=== PATIENT | female | born 1950 | race Caucasian/White ===

== ENCOUNTER 2017-06-20 07:22 | Inpatient (IN) | payer MEDICARE ==
[2017-06-20] MEDS ORDERED: Iodixanol 320 mg/ml 150 ml Bottle IV ONE (08:14)
[2017-06-20 08:44] LABS: RBC URINE 1 /hpf (0-3); URINE BILIRUBIN NEGATIVE (NEGATIVE); URINE BLOOD NEGATIVE (NEGATIVE); URINE COLOR Yellow (YELLOW); URINE GLUCOSE (UA) NORMAL (Normal); URINE KETONE TRACE mg/dL (NEGATIVE); URINE LEUKOCYTE ESTERASE TRACE Leu/uL (Negative); URINE PROTEIN NEGATIVE (NEGATIVE); WBC URINE 1 /hpf (0-5)
--- NOTE | 2017-06-20 08:54 | C.PDOC ---
History Of Present Illness 67 yo female c/o LLQ since last night associated with nausea and diarrhea. Pt was signed over to me at 7am pending CT resutls. Pt re-registered from MR # [id number]. Time Seen by Provider: 06/20/17 07:48 Chief Complaint (Nursing): Abdominal Pain History Per: Patient Onset/Duration Of Symptoms: Hrs Current Symptoms Are (Timing): Still Present Location Of Pain/Discomfort: LLQ Past Medical History Vital Signs: Last Vital Signs Temp 97.6 F 06/20/17 11:52 Pulse 84 06/20/17 11:52 Resp 20 06/20/17 11:52 BP 94/55 L 06/20/17 11:52 Pulse Ox 95 06/20/17 11:52 - Medical History PMH: Bronchitis Family History: States: Unknown Family Hx - Social History Hx Alcohol Use: No Hx Substance Use: No - Immunization History Hx Tetanus Toxoid Vaccination: No Hx Influenza Vaccination: Yes Hx Pneumococcal Vaccination: No Review Of Systems Except As Marked, All Systems Reviewed And Found Negative. Gastrointestinal: Positive for: Nausea, Vomiting, Abdominal Pain, Diarrhea Physical Exam - Physical Exam Appears: Well, Non-toxic, No Acute Distress Skin: Normal Color, Warm, Dry Head: Atraumatic, Normacephalic Eye(s): bilateral: Normal Inspection, EOMI Nose: Normal Oral Mucosa: Moist Neck: Normal, Normal ROM, Supple Chest: Symmetrical Cardiovascular: Rhythm Regular Respiratory: Normal Breath Sounds, No Accessory Muscle Use Gastrointestinal/Abdominal: Soft, Tenderness (LLQ) Back: Normal Inspection, No CVA Tenderness, No Vertebral Tenderness Extremity: Normal ROM ED Course And Treatment - Laboratory Results Result Diagrams: 06/20/17 11:45 O2 Sat by Pulse Oximetry: 99 Progress Note: On re-eevaluation, pt notes some improvement of pain. Toradol IVP ordered. WBC 22. Neut 87. CT results evalauted. Blood culture drawn - under previous chart. Flagyl /Cipro ordered. Case discussed with Dr Darden, agreed upon treatment and admission. Case discussed with Dr Urrutia, agreed upon admission. Disposition - Disposition Disposition: HOSPITALIZED Disposition Time: 10:14 Condition: STABLE - Clinical Impression Clinical Impression: Diverticulitis
--- NOTE | 2017-06-20 09:27 | CT ---
PROCEDURE: CT Abdomen and Pelvis with contrast HISTORY: Abdominal pain and diarrhea COMPARISON: None. TECHNIQUE: CT scan of the abdomen and pelvis was performed after intravenous administration of contrast. Oral contrast was not administered. Coronal and sagittal reformatted images were obtained. Contrast dose: 100 mL Visipaque Radiation dose: Total exam DLP = 256.33 mGy-cm. This CT exam was performed using one or more of the following dose reduction techniques: Automated exposure control, adjustment of the mA and/or kV according to patient size, and/or use of iterative reconstruction technique. FINDINGS: LOWER THORAX: The lung bases are clear. LIVER: The liver is normal in size and there is diffuse fatty infiltration. No gross lesion or ductal dilatation. GALLBLADDER AND BILE DUCTS: There are no calcified gallstones. PANCREAS: Normal in size with homogeneous enhancement. No gross lesion or ductal dilatation. SPLEEN: Normal in size and appearance. ADRENALS: No discrete nodule. KIDNEYS AND URETERS: Normal in size and there is homogeneous enhancement. No hydronephrosis. No solid mass. VASCULATURE: There are atherosclerotic aortoiliac calcifications and focal ectasia of the infrarenal aorta are with posterior lateral thrombus. No aortic aneurysm. BOWEL: The small bowel loops are normal in caliber. There is colonic diverticulosis, extensive in the left hemicolon. There is segmental moderate mural thickening of the distal descending and sigmoid colon with significant pericolonic inflammatory changes. No microperforation. APPENDIX: No inflammatory changes in the right lower quadrant. PERITONEUM: No free fluid. No free air. LYMPH NODES: No enlarged lymph nodes. BLADDER: Partially decompressed. REPRODUCTIVE: The uterus is normal in size. BONES: No acute fracture. Within normal limits for the patient's age. OTHER FINDINGS: None. IMPRESSION: 1. Findings are consistent with acute diverticulitis involving the long segment distal descending and sigmoid colon without micro perforation or abscess. 2. Fatty liver.
[2017-06-20] MEDS ORDERED: Ciprofloxacin 400mg/200ml D5W 400 MG/200 ML BAG IV STA (09:35)
[2017-06-20] MEDS ORDERED: Ciprofloxacin 400mg/200ml D5W 400 MG/200 ML BAG IVPB ONE (09:41)
[2017-06-20] MEDS ORDERED: metroNIDAZOLE IV 500 mg/100 ml 500 MG/100 ML BAG IV STA (09:44)
[2017-06-20] MEDS ORDERED: Dextrose 5%/0.9% NS 1,000 ML IV ONE (10:30)
[2017-06-20] MEDS ORDERED: Ciprofloxacin 400mg/200ml D5W 400 MG/200 ML BAG IVPB SCH ×3 (11:00→15:00)
--- NOTE | 2017-06-20 11:03 | RAD ---
PROCEDURE: CHEST RADIOGRAPH, 1 VIEW HISTORY: sepsis COMPARISON: None available. FINDINGS: LUNGS: The lungs are hyperinflated and there is peribronchial thickening with chronic changes in both lungs. No focal consolidation. PLEURA: No pneumothorax or pleural fluid seen. CARDIOVASCULAR: Normal. OSSEOUS STRUCTURES: No significant abnormalities. VISUALIZED UPPER ABDOMEN: Normal. OTHER FINDINGS: None. IMPRESSION: No active pulmonary disease. COPD.
[2017-06-20 12:08] LABS: CHLORIDE 103 mmol/L (98-107)
[2017-06-20 12:09] LABS: POTASSIUM 3.1 mmol/L (3.6-5.2); SODIUM 131 mmol/L (132-148)
[2017-06-20 12:11] LABS: ALB/GLOB RATIO 1.3 (1.0-2.1); AMYLASE 52 U/L (30-110); AST/SGOT 27 U/L (14-36); BILIRUBIN,DIRECT 0.7 mg/dL (0.0-0.4); BLOOD UREA NITROGEN 12 mg/dL (7-17); CARBON DIOXIDE 19 mmol/L (22-30); GFR AFRICAN-AMERICAN > 60; TOTAL PROTEIN 5.4 g/dL (6.3-8.3)
[2017-06-20 12:12] LABS: ALKALINE PHOSPHATASE 43 U/L (38-126); ALT/SGPT 38 U/L (9-52); CALCIUM 7.2 mg/dl (8.6-10.4); GLUCOSE,RANDOM 120 mg/dL (65-105)
[2017-06-20 14:15] LABS: BASO # 0.1 K/uL (0.0-0.2); BASO % 0.2 % (0.0-2.0); EOS % 0.2 % (0.0-4.0); HEMATOCRIT 42.1 % (34.0-47.0); LYMPH # 1.8 K/uL (1.0-4.3); LYMPH % 8.1 % (20.0-40.0); MEAN CELL VOLUME 90.9 fL (81.0-99.0); MEAN CORPUSCULAR HEMOGLOBIN 31.1 pg (27.0-31.0); MEAN CORPUSCULAR HGB CONC 34.2 g/dL (33.0-37.0); MEAN PLATELET VOLUME 10.1 fL (7.2-11.7); MONO # 1.2 K/uL (0.0-0.8); MONO % 5.2 % (0.0-10.0); PLATELET COUNT 277 K/uL (130-400); RED CELL DISTRIBUTION WIDTH 13.9 % (11.5-14.5)
[2017-06-20 14:18] LABS: WHITE BLOOD COUNT 22.6 K/uL (4.8-10.8)
[2017-06-20 14:25] LABS: INR 1.2
[2017-06-20 14:38] LABS: EOSINOPHIL 1 % (0-4); LARGE PLATELETS PRESENT; NEUTROPHIL 81 % (50-75); TOTAL CELLS COUNTED 100
[2017-06-20] MEDS: Enoxaparin 40 mg Syringe SC SCH (14:46)
[2017-06-20] MEDS: metroNIDAZOLE IV 500 mg/100 ml 500 MG/100 ML BAG IVPB SCH ×2 (14:48→21:18)
[2017-06-20] MEDS: Piperacill/Tazo 3.375gm in Dex 3.375 GM/50 ML BAG IVPB SCH (15:35)
[2017-06-20] MEDS: Albuterol-Ipratrop 3 mg / 0.5 (3 ml) UD INH SCH ×2 (15:40→19:56)
[2017-06-20 16:01] VITALS: RESP 20
[2017-06-20] MEDS: HYDROmorphone 1 mg/ml ISec IVP PRN (17:12)
[2017-06-20 17:13] LABS: MAGNESIUM 1.5 mg/dL (1.6-2.3); PHOSPHOROUS 2.8 mg/dL (2.5-4.5)
--- NOTE | 2017-06-20 19:37 | CP.PCM.HP ---
History of Present Illness - History of Present Illness History of Present Illness: Patient 67 y/o with hx of severe COPD still a smoker. She presented in ER with severe LLQ abd pain, nausea, vomiting. A CT scan of abd reveled a diverticulitis with no abscess or perforation. The patient id not able to tolerate any PO intake and still c/o severe pain. Stated in IV antibx, IV fluid , IV opioid , NPO. Will follow clinically until the patient cannot tolerate PO intake will admit on present rx. F/U with ID and GI. Will close monitor the respiratory condition. Present on Admission - Present on Admission Any Indicators Present on Admission: No Review of Systems - Constitutional Constitutional: As Per HPI - EENT Eyes: As Per HPI - Cardiovascular Cardiovascular: As Per HPI - Respiratory Respiratory: As Per HPI - Gastrointestinal Gastrointestinal: As Per HPI - Neurological Neurological: As Per HPI - Psychiatric Psychiatric: As Per HPI Past Patient History - Infectious Disease Hx of Infectious Diseases: None - Past Medical History & Family History Past Medical History?: Yes - Past Social History Smoking Status: Light Smoker < 10 Cigarettes Daily - CARDIAC Hx Cardiac Disorders: No - PULMONARY Hx Bronchitis: Yes - NEUROLOGICAL Hx Neurological Disorder: No - HEENT Hx HEENT Problems: No - RENAL Hx Chronic Kidney Disease: No - ENDOCRINE/METABOLIC Hx Endocrine Disorders: No - HEMATOLOGICAL/ONCOLOGICAL Hx Blood Disorders: No - INTEGUMENTARY Hx Dermatological Problems: No - MUSCULOSKELETAL/RHEUMATOLOGICAL Hx Musculoskeletal Disorders: No Hx Falls: No - GASTROINTESTINAL Hx Diverticulitis: Yes - GENITOURINARY/GYNECOLOGICAL Hx Genitourinary Disorders: No - PSYCHIATRIC Hx Substance Use: No - SURGICAL HISTORY Hx Surgeries: Yes Hx Section: Yes - ANESTHESIA Hx Anesthesia: Yes Hx Anesthesia Reactions: No Hx Malignant Hyperthermia: No Has any member of the family had a problem w/ anesthesia?: No Meds Allergies/Adverse Reactions: Allergies Allergy/AdvReac Type Severity Reaction Status Date / Time No Known Allergies Allergy Verified 06/20/17 07:51 Physical Exam - Constitutional Appears: In Acute Distress - Head Exam Head Exam: ATRAUMATIC, NORMAL INSPECTION, NORMOCEPHALIC - Eye Exam Eye Exam: Normal appearance - ENT Exam ENT Exam: Mucous Membranes Moist - Neck Exam Neck exam: Positive for: Normal Inspection - Respiratory Exam Respiratory Exam: Decreased Breath Sounds - Cardiovascular Exam Cardiovascular Exam: REGULAR RHYTHM, +S2 - GI/Abdominal Exam GI & Abdominal Exam: Tenderness Additional comments: Severe tenderness in the LLQ with mild rebound - Neurological Exam Neurological exam: Alert, CN II-XII Intact, Oriented x3 - Psychiatric Exam Psychiatric exam: Anxious Results - Vital Signs Recent Vital Signs: Last Vital Signs Temp 100.3 F H 06/20/17 16:20 Pulse 80 06/20/17 15:58 Resp 20 06/20/17 15:58 BP 104/53 L 06/20/17 15:58 Pulse Ox 94 L 06/20/17 15:58 - Labs Result Diagrams: 06/20/17 14:06 06/20/17 11:45 Labs: Laboratory Results - last 24 hr 06/20/17 06/20/17 06/20/17 08:14 11:45 11:45 WBC RBC Hgb Hct MCV MCH MCHC RDW Plt Count MPV Neut % (Auto) Lymph % (Auto) [place] % (Auto) Eos % (Auto) Baso % (Auto) Neut # Lymph # [place] # Eos # Baso # Neutrophils % (Manual) Band Neutrophils % Lymphocytes % (Manual) Monocytes % (Manual) Eosinophils % (Manual) Platelet Estimate Large Platelets RBC Morphology PT INR APTT Sodium 131 L Potassium 3.1 L Chloride 103 Carbon Dioxide 19 L Anion Gap 12 BUN 12 Creatinine 0.8 Est GFR ( Amer) > 60 Est GFR (Non-Af Amer) > 60 Random Glucose 120 H Calcium 7.2 L Phosphorus 2.8 Magnesium 1.5 L Total Bilirubin 1.0 Direct Bilirubin 0.7 H AST 27 ALT 38 Alkaline Phosphatase 43 Total Protein 5.4 L Albumin 3.0 L Globulin 2.4 Albumin/Globulin Ratio 1.3 Amylase 52 Lipase 28 Urine Color Yellow Urine Clarity Clear Urine pH 6.0 Ur Specific [place] 1.024 Urine Protein Negative Urine Glucose (UA) Normal Urine Ketones Trace Urine Blood Negative Urine Nitrate Negative Urine Bilirubin Negative Urine Urobilinogen 4.0 H Ur Leukocyte Esterase Trace Urine WBC (Auto) 1 Urine RBC (Auto) 1 Ur Squamous Epith Cells 4 06/20/17 06/20/17 14:06 14:06 WBC 22.6 H RBC 4.63 Hgb 14.4 Hct 42.1 MCV 90.9 MCH 31.1 H MCHC 34.2 RDW 13.9 Plt Count 277 MPV 10.1 Neut % (Auto) 86.3 H Lymph % (Auto) 8.1 L [place] % (Auto) 5.2 Eos % (Auto) 0.2 Baso % (Auto) 0.2 Neut # 19.5 H Lymph # 1.8 [place] # 1.2 H Eos # 0.0 Baso # 0.1 Neutrophils % (Manual) 81 H Band Neutrophils % 1 Lymphocytes % (Manual) 12 L Monocytes % (Manual) 5 Eosinophils % (Manual) 1 Platelet Estimate Normal Large Platelets Present RBC Morphology Normal PT 13.4 H INR 1.2 APTT 35 H Sodium Potassium Chloride Carbon Dioxide Anion Gap BUN Creatinine Est GFR ( Amer) Est GFR (Non-Af Amer) Random Glucose Calcium Phosphorus Magnesium Total Bilirubin Direct Bilirubin AST ALT Alkaline Phosphatase Total Protein Albumin Globulin Albumin/Globulin Ratio Amylase Lipase Urine Color Urine Clarity Urine pH Ur Specific [place] Urine Protein Urine Glucose (UA) Urine Ketones Urine Blood Urine Nitrate Urine Bilirubin Urine Urobilinogen Ur Leukocyte Esterase Urine WBC (Auto) Urine RBC (Auto) Ur Squamous Epith Cells Assessment & Plan (1) Abdominal pain Status: Acute (2) COPD (chronic obstructive pulmonary disease) Status: Chronic (3) Leukocytosis Status: Acute (4) Diverticulitis Status: Acute - Assessment and Plan (Free Text) Plan: per orders
[2017-06-21] MEDS: Piperacill/Tazo 3.375gm in Dex 3.375 GM/50 ML BAG IVPB SCH ×3 (00:12→16:00)
[2017-06-21] MEDS: Albuterol-Ipratrop 3 mg / 0.5 (3 ml) UD INH SCH ×4 (02:52→19:44)
[2017-06-21] MEDS: HYDROmorphone 1 mg/ml ISec IVP PRN ×2 (03:53→12:08)
[2017-06-21] MEDS: metroNIDAZOLE IV 500 mg/100 ml 500 MG/100 ML BAG IVPB SCH ×3 (05:08→21:56)
[2017-06-21 08:09] LABS: EOS # 0.1 K/uL (0.0-0.7); MEAN CORPUSCULAR HEMOGLOBIN 30.6 pg (27.0-31.0); MEAN CORPUSCULAR HGB CONC 33.4 g/dL (33.0-37.0); MONO # 1.1 K/uL (0.0-0.8)
[2017-06-21 08:16] LABS: BASO % 0.2 % (0.0-2.0); EOS % 0.6 % (0.0-4.0); HEMATOCRIT 36.3 % (34.0-47.0); LYMPH # 1.9 K/uL (1.0-4.3); LYMPH % 9.3 % (20.0-40.0); MEAN CELL VOLUME 91.9 fL (81.0-99.0); MEAN PLATELET VOLUME 10.2 fL (7.2-11.7); MONO % 5.2 % (0.0-10.0); PLATELET COUNT 246 K/uL (130-400); WHITE BLOOD COUNT 20.5 K/uL (4.8-10.8)
[2017-06-21 08:19] LABS: CHLORIDE 104 mmol/L (98-107)
[2017-06-21 08:20] LABS: POTASSIUM 3.6 mmol/L (3.6-5.2); SODIUM 132 mmol/L (132-148)
[2017-06-21 08:22] LABS: ALB/GLOB RATIO 1.3 (1.0-2.1); ALKALINE PHOSPHATASE 57 U/L (38-126); ALT/SGPT 41 U/L (9-52); AST/SGOT 21 U/L (14-36); BLOOD UREA NITROGEN 11 mg/dL (7-17); CALCIUM 7.9 mg/dl (8.6-10.4); CARBON DIOXIDE 21 mmol/L (22-30); GFR AFRICAN-AMERICAN > 60; GLUCOSE,RANDOM 96 mg/dL (65-105); TOTAL PROTEIN 5.5 g/dL (6.3-8.3)
[2017-06-21] MEDS: Fluticasone-Salmeterol 250-50mcg Diskus INH SCH ×2 (08:42→19:45)
[2017-06-21 08:57] LABS: NEUTROPHIL 84 % (50-75); TOTAL CELLS COUNTED 100
[2017-06-21 08:58] LABS: GIANT PLATELETS PRESENT; LARGE PLATELETS PRESENT
[2017-06-21 09:22] LABS: ERYTHROCYTE SEDIMENTATION RATE 40 mm/hr (0-20)
--- NOTE | 2017-06-21 09:53 | RAD ---
PROCEDURE: Radiographs of the Chest and Left Ribs. HISTORY: pain COMPARISON: None available. TECHNIQUE: Frontal radiograph of the chest and multiple oblique radiographs of the left ribs were obtained. FINDINGS: LEFT RIBS: No fracture or focal lesion visualized. LUNGS: Clear. PLEURA: No pneumothorax or pleural fluid. CARDIOVASCULAR: Normal sized heart. No pulmonary vascular congestion. OTHER FINDINGS: None. IMPRESSION: Unremarkable radiographs of the chest and left ribs. No left rib fracture.
[2017-06-21] MEDS: Enoxaparin 40 mg Syringe SC SCH (10:01)
[2017-06-21 11:04] LABS: HEMATOCRIT 44.1 % (34.0-47.0)
[2017-06-21 11:05] LABS: EOS % 0.1 % (0.0-4.0); LYMPH % 8.9 % (20.0-40.0); MEAN CORPUSCULAR HEMOGLOBIN 30.6 pg (27.0-31.0); MEAN PLATELET VOLUME 10.1 fL (7.2-11.7); MONO % 5.8 % (0.0-10.0); PLATELET COUNT 308 K/uL (130-400); RED CELL DISTRIBUTION WIDTH 13.6 % (11.5-14.5)
[2017-06-21 11:06] LABS: BASO # 0.1 K/uL (0.0-0.2); BASO % 0.5 % (0.0-2.0); MONO # 1.3 K/uL (0.0-0.8); NRBC % 0.1 % (0.0-2.0)
[2017-06-21 11:08] LABS: NEUTROPHIL 85 % (50-75)
[2017-06-21 11:12] LABS: BLOOD UREA NITROGEN 14 mg/dL (7-17); CALCIUM 8.9 mg/dl (8.6-10.4); CARBON DIOXIDE 22 mmol/L (22-30); CHLORIDE 101 mmol/L (98-107); GFR AFRICAN-AMERICAN > 60; POTASSIUM 3.8 mmol/L (3.6-5.2); SODIUM 136 mmol/L (132-148)
[2017-06-21 11:13] LABS: ALB/GLOB RATIO 1.1 (1.0-2.1); ALKALINE PHOSPHATASE 76 U/L (38-126); ALT/SGPT 51 U/L (9-52); AST/SGOT 33 U/L (14-36); BILIRUBIN,TOTAL 0.6 mg/dL (0.2-1.3); TOTAL PROTEIN 8.5 g/dL (6.3-8.3)
[2017-06-21 11:15] LABS: TOTAL CELLS COUNTED 100
[2017-06-21 11:30] LABS: GLUCOSE,RANDOM 99 mg/dL (65-105)
[2017-06-21] MEDS ORDERED: MethylPREDNISolone 40 mg Vial IVP STA (13:18)
--- NOTE | 2017-06-21 14:21 | RAD ---
PROCEDURE: CHEST RADIOGRAPH, 1 VIEW HISTORY: COPD COMPARISON: 06/21/2017 FINDINGS: LUNGS: Mild venous congestion. Biapical pleural thickening with upper lobe granulomatous changes. Right hilar prominence. PLEURA: No pneumothorax or pleural fluid seen. CARDIOVASCULAR: Calcification at the aortic knob. OSSEOUS STRUCTURES: No significant abnormalities. VISUALIZED UPPER ABDOMEN: Normal. OTHER FINDINGS: None. IMPRESSION: Mild venous congestion. Biapical pleural thickening with upper lobe granulomatous changes. Right hilar prominence.
--- NOTE | 2017-06-21 15:41 | CP.PCM.CON ---
History of Present Illness - History of Present Illness History of Present Illness: CC: Abdominal pain HPI: 67 year old woman presented to the ER for evaluation of LLQ pain present x 2 weeks, associated with softer BMs. CT showed inflamatory changes with diverticula in the left colon and patient was admitted with diagnosis of diverticulitis and begun on Zosyn and Flagyl. Patient notes some improvement in abdominal pain today, but feels sad and depresses due to "too many problems at bthe same time" and sad that she has never in her life been hospitalized. She denies recent antibiotic use. Patient states she has chronic intermittent generalized pruritis and rash for which she uses Bendaryl PRN/ Also has cough, and is a current cigarette smoker. Patient has never had a Colonoscopy. Review of Systems - Constitutional Constitutional: Anorexia, Chills, Fever, Weakness - EENT Eyes: absent: Change in Vision Ears: absent: Dizziness Nose/Mouth/Throat: absent: Sore Throat - Cardiovascular Cardiovascular: absent: Chest Pain - Respiratory Respiratory: Cough. absent: Dyspnea - Gastrointestinal Gastrointestinal: Abdominal Pain, Change in Stool Character, Loose Stools, Nausea. absent: Constipation, Hematochezia, Melena - Genitourinary Genitourinary: absent: Dysuria - Musculoskeletal Musculoskeletal: absent: Back Pain - Integumentary Integumentary: Pruritus, Rash - Neurological Neurological: absent: Abnormal Gait - Psychiatric Psychiatric: Anxiety, Depression - Hematologic/Lymphatic Hematologic: absent: Easy Bleeding Past Patient History - Infectious Disease Hx of Infectious Diseases: None - Past Medical History & Family History Past Medical History?: Yes - Past Social History Smoking Status: Light Smoker < 10 Cigarettes Daily Alcohol: None - CARDIAC Hx Cardiac Disorders: No - PULMONARY Hx Bronchitis: Yes - NEUROLOGICAL Hx Neurological Disorder: No - HEENT Hx HEENT Problems: No - RENAL Hx Chronic Kidney Disease: No - ENDOCRINE/METABOLIC Hx Endocrine Disorders: No - HEMATOLOGICAL/ONCOLOGICAL Hx Blood Disorders: No - INTEGUMENTARY Hx Dermatological Problems: No - MUSCULOSKELETAL/RHEUMATOLOGICAL Hx Musculoskeletal Disorders: No Hx Falls: No - GASTROINTESTINAL Hx Diverticulitis: Yes - GENITOURINARY/GYNECOLOGICAL Hx Genitourinary Disorders: No - PSYCHIATRIC Hx Substance Use: No - SURGICAL HISTORY Hx Surgeries: Yes Hx Section: Yes - ANESTHESIA Hx Anesthesia: Yes Hx Anesthesia Reactions: No Hx Malignant Hyperthermia: No Has any member of the family had a problem w/ anesthesia?: No Meds Allergies/Adverse Reactions: Allergies Allergy/AdvReac Type Severity Reaction Status Date / Time No Known Allergies Allergy Unverified 06/20/17 06:02 - Medications Medications: Current Medications Acetaminophen (Tylenol 325 Mg Supp) 325 mg [place] Q6 PRN PRN Reason: Pain, moderate (4-7) Last Admin: 06/20/17 16:20 Dose: 325 mg Albuterol/Ipratropium (Duoneb 3 Mg/0.5 Mg (3 Ml) Ud) 3 ml INH RQ6 [facility] Last Admin: 06/21/17 13:34 Dose: 3 ml Enoxaparin Sodium (Lovenox) 40 mg SC DAILY [facility] Last Admin: 06/21/17 10:01 Dose: 40 mg Famotidine (Pepcid) 20 mg IVP Q12H [facility] Last Admin: 06/21/17 12:08 Dose: 20 mg Hydromorphone HCl (Dilaudid) 1 mg IVP Q8 PRN PRN Reason: Pain, severe (8-10) Last Admin: 06/21/17 12:08 Dose: 1 mg Metronidazole (Flagyl) 500 mg in 100 mls @ 100 mls/hr IVPB Q8 [facility] Last Admin: 06/21/17 14:45 Dose: 100 mls/hr Piperacillin Sod/Tazobactam Sod (Zosyn 3.375 Gm Iv Premix) 3.375 gm in 50 mls @ 100 mls/hr IVPB Q8H [facility] Last Admin: 06/21/17 07:53 Dose: 100 mls/hr Nicotine (Nicoderm Cq) 1 patch TD DAILY [facility] Last Admin: 06/21/17 10:09 Dose: 1 patch Pneumococcal Polyvalent Vaccine (Pneumovax 23 Vaccine) 0.5 ml IM .ONCE ONE Stop: 06/22/17 10:01 Fluticasone/Salmeterol (Advair Diskus 250/50) 1 puff INH RQ12 [facility] Last Admin: 06/21/17 08:42 Dose: 1 puff Physical Exam - Constitutional Appears: Well, No Acute Distress - Head Exam Head Exam: ATRAUMATIC, NORMOCEPHALIC - Eye Exam Eye Exam: EOMI, Normal appearance. absent: Scleral icterus - ENT Exam ENT Exam: Normal Exam - Neck Exam Neck exam: Positive for: Normal Inspection. Negative for: Thyromegaly - Respiratory Exam Respiratory Exam: Wheezes - Cardiovascular Exam Cardiovascular Exam: REGULAR RHYTHM - GI/Abdominal Exam GI & Abdominal Exam: Soft, Tenderness. absent: Distended (Mild LLQ tenderness. Longitudinal pelvic surgical scar), Guarding, Mass, Organomegaly, Rebound - Rectal Exam Rectal Exam: Deferred - Extremities Exam Extremities exam: Positive for: normal inspection - Back Exam Back exam: NORMAL INSPECTION - Neurological Exam Neurological exam: Alert, Oriented x3 - Psychiatric Exam Psychiatric exam: Depressed Results - Vital Signs Recent Vital Signs: Last Vital Signs Temp 98.5 F 06/21/17 07:46 Pulse 69 06/21/17 07:46 Resp 20 06/21/17 07:46 BP 98/61 L 06/21/17 07:46 Pulse Ox 97 06/21/17 07:46 - Labs Result Diagrams: 06/21/17 07:50 06/21/17 07:50 Labs: Laboratory Results - last 24 hr 06/20/17 06/20/17 06/20/17 06:07 06:07 11:45 WBC 22.0 H RBC 4.90 Hgb 15.0 Hct 44.1 MCV 90.0 MCH 30.6 MCHC 34.0 RDW 13.6 Plt Count 308 MPV 10.1 Neut % (Auto) 84.7 H Lymph % (Auto) 8.9 L [place] % (Auto) 5.8 Eos % (Auto) 0.1 Baso % (Auto) 0.5 Neut # 18.6 H Lymph # 2.0 [place] # 1.3 H Eos # 0.0 Baso # 0.1 Neutrophils % (Manual) 85 H Band Neutrophils % Lymphocytes % (Manual) 10 L Monocytes % (Manual) 5 Platelet Estimate Normal Large Platelets Giant Platelets RBC Morphology Normal Poikilocytosis (manual Anisocytosis (manual) ESR Sodium 136 Potassium 3.8 Chloride 101 Carbon Dioxide 22 Anion Gap 17 BUN 14 Creatinine 1.0 Est GFR ( Amer) > 60 Est GFR (Non-Af Amer) 55 Random Glucose 99 Calcium 8.9 Phosphorus 2.8 Magnesium 1.5 L Total Bilirubin 0.6 AST 33 ALT 51 Alkaline Phosphatase 76 Total Protein 8.5 H Albumin 4.4 Globulin 4.1 H Albumin/Globulin Ratio 1.1 Lipase 64 06/21/17 06/21/17 07:50 07:50 WBC 20.5 H RBC 3.95 Hgb 12.1 D Hct 36.3 MCV 91.9 MCH 30.6 MCHC 33.4 RDW 14.0 Plt Count 246 MPV 10.2 Neut % (Auto) 84.7 H Lymph % (Auto) 9.3 L [place] % (Auto) 5.2 Eos % (Auto) 0.6 Baso % (Auto) 0.2 Neut # 17.4 H Lymph # 1.9 [place] # 1.1 H Eos # 0.1 Baso # 0.0 Neutrophils % (Manual) 84 H Band Neutrophils % 1 Lymphocytes % (Manual) 11 L Monocytes % (Manual) 4 Platelet Estimate Normal Large Platelets Present Giant Platelets Present RBC Morphology Poikilocytosis (manual Slight Anisocytosis (manual) Slight ESR 40 H Sodium 132 Potassium 3.6 Chloride 104 Carbon Dioxide 21 L Anion Gap 11 BUN 11 Creatinine 0.8 Est GFR ( Amer) > 60 Est GFR (Non-Af Amer) > 60 Random Glucose 96 Calcium 7.9 L Phosphorus Magnesium Total Bilirubin 1.0 AST 21 ALT 41 Alkaline Phosphatase 57 Total Protein 5.5 L Albumin 3.0 L Globulin 2.4 Albumin/Globulin Ratio 1.3 Lipase - Imaging and Cardiology CT scan - abdomen Status: Report reviewed by me Assessment & Plan (1) Diverticulitis Assessment and Plan: Continue Zosyn, Flagyl, bowel rest. Will re-evaluate tomorrow. Check stool for CDiff toxin Colonoscopy in 4-6 weeks, after resolution of acute inflammatory colonic process. Status: Acute
--- NOTE | 2017-06-21 16:03 | CP.PCM.PN ---
Subjective - Date & Time of Evaluation Date of Evaluation: 06/21/17 Time of Evaluation: 15:55 - Subjective Subjective: SURGERY CONSULT NOTE FOR DR. GOLDBERG 67yo F with PMHx of COPD, smoker presented to the ED with LLQ abdominal pain for the past 4-6 days. The pain is worse with coughing. She has been coughing for "a long time". She has associated diarrhea, about 4-6 times per day, non bloody. She feels nauseous in the morning but denies vomiting. She also denies fever or chills. She denies recent travel. She isn't eating much because she doesn't have an appetite. CT showed extesive colonic diverticulosis with segmental moderate mural thickening of distal descending and sigmoid colon with significant pericolonic inflammatory changes consistent with acute diverticulitis. She has been started on Zosyn and Flagyl with bowel rest, NPO. PMHx: COPD, emphysema, hyperlipidemia Surgeries: C-sectionx1 Allergies: none Home medications: Benadryl PRN pruritis/rash Social history: former heavy drinker, quit etoh 7-8 years ago; smokes 8-10 cigarettes per day; denies illicit drug use Objective - Vital Signs/Intake and Output Vital Signs (last 24 hours): Temp Pulse Resp BP Pulse Ox 98.5 F 69 20 98/61 L 97 06/21/17 07:46 06/21/17 07:46 06/21/17 07:46 06/21/17 07:46 06/21/17 07:46 Intake and Output: 06/21/17 06/21/17 06:59 18:59 Intake Total 1370 Balance 1370 - Medications Medications: Current Medications Acetaminophen (Tylenol 325 Mg Supp) 325 mg [place] Q6 PRN PRN Reason: Pain, moderate (4-7) Last Admin: 06/20/17 16:20 Dose: 325 mg Albuterol/Ipratropium (Duoneb 3 Mg/0.5 Mg (3 Ml) Ud) 3 ml INH RQ6 [facility] Last Admin: 06/21/17 13:34 Dose: 3 ml Enoxaparin Sodium (Lovenox) 40 mg SC DAILY [facility] Last Admin: 06/21/17 10:01 Dose: 40 mg Famotidine (Pepcid) 20 mg IVP Q12H [facility] Last Admin: 06/21/17 12:08 Dose: 20 mg Hydromorphone HCl (Dilaudid) 1 mg IVP Q8 PRN PRN Reason: Pain, severe (8-10) Last Admin: 06/21/17 12:08 Dose: 1 mg Metronidazole (Flagyl) 500 mg in 100 mls @ 100 mls/hr IVPB Q8 [facility] Last Admin: 06/21/17 14:45 Dose: 100 mls/hr Piperacillin Sod/Tazobactam Sod (Zosyn 3.375 Gm Iv Premix) 3.375 gm in 50 mls @ 100 mls/hr IVPB Q8H [facility] Last Admin: 06/21/17 07:53 Dose: 100 mls/hr Nicotine (Nicoderm Cq) 1 patch TD DAILY [facility] Last Admin: 06/21/17 10:09 Dose: 1 patch Pneumococcal Polyvalent Vaccine (Pneumovax 23 Vaccine) 0.5 ml IM .ONCE ONE Stop: 06/22/17 10:01 Fluticasone/Salmeterol (Advair Diskus 250/50) 1 puff INH RQ12 [facility] Last Admin: 06/21/17 08:42 Dose: 1 puff - Labs Labs: 06/21/17 07:50 06/21/17 07:50 PT 13.4 SECONDS (9.7-12.2) H 06/20/17 14:06 INR 1.2 06/20/17 14:06 APTT 35 SECONDS (21-34) H 06/20/17 14:06 - Constitutional Appears: Non-toxic, No Acute Distress - Head Exam Head Exam: ATRAUMATIC, NORMAL INSPECTION - Eye Exam Eye Exam: EOMI, Normal appearance - Respiratory Exam Respiratory Exam: NORMAL BREATHING PATTERN. absent: Respiratory Distress - Cardiovascular Exam Cardiovascular Exam: +S1, +S2. absent: Tachycardia - GI/Abdominal Exam GI & Abdominal Exam: Tenderness (tender in LLQ). absent: Distended, Firm, Guarding, Rigid, Soft, Rebound Additional comments: well healed lower midline scar - Neurological Exam Neurological Exam: Alert, Awake, Oriented x3 - Psychiatric Exam Psychiatric exam: Normal Affect, Normal Mood - Skin Skin Exam: Dry, Normal Color, Warm Assessment and Plan - Assessment and Plan (Free Text) Assessment: 67yo F with PMHx of COPD, current smoker who presented with LLQ abdominal pain and diarrhea and was found to have diverticulitis - Tmax 100.3 - Leukocytosis WBC 20.5 (decreased from yesterday 22.6) - Bowel rest: NPO, IV fluids - IV Abx: currently on Zosyn and Flagyl - No acute surgical intervention necessary - Per GI: check stool for CDiff toxin & Colonoscopy in 4-6 weeks, after resolution of acute inflammatory colonic process. - Discussed plan with Dr. Olivia Bennett PGY-3
--- NOTE | 2017-06-21 18:43 | CP.PCM.CON ---
History of Present Illness - History of Present Illness History of Present Illness: INFECTIOUS DISEASE CONSULTATION PERFECTO AKBAR MD,FACP 3T 368-B 06/21/2017 CHART REVIEWED PT EXAMINED CASE DISCUSSED WITH GRANT MATAMOROS YESTERDAY AND EMPICIC ORDERS NOTED PT REQUIRED REPEAT TESTING SECONDARY IDENTIFICATION ISSUES. 67 year old woman presented to the ER for evaluation of LLQ pain present x 2 weeks, associated with softer BMs. CT showed inflamatory changes with diverticula in the left colon and patient was admitted with diagnosis of diverticulitis and begun on Zosyn and Flagyl. Patient notes some improvement in abdominal pain today, but feels sad and depresses, 1st) becuase she has never been hospitalized before and 2nd) due to "too many problems at this same time" in her life. Anxiety and depression seem to be an over whelming issues already. Her pmd is dr walker, Still smoking daily and has chronic bronchitis and was on antibiotics for this previously, time is difficult to assess. Smokes from 10 cigarettes upto packs per day. no allergies etoh to be elucidated family hx clearly not available at this point in time. Her is present in the room, all questions have been answered and or addressed as best as can be humanly possible. Review of Systems - Constitutional Constitutional: Anorexia, Weakness - EENT Ears: absent: Decreased Hearing Nose/Mouth/Throat: absent: Bleeding Gums, Dysphagia, Mouth Pain - Cardiovascular Cardiovascular: Diaphoresis, Other (near syncope, as per pt.) - Respiratory Respiratory: Chest Congestion Additional comments: chronic bronchitis - Gastrointestinal Gastrointestinal: Bloating, Change in Bowel Habits, Change in Stool Character, Diarrhea, Loose Stools, Nausea, Vomiting - Genitourinary Genitourinary: absent: Flank Pain - Musculoskeletal Musculoskeletal: Muscle Weakness - Neurological Additional comments: near syncope Past Patient History - Infectious Disease Hx of Infectious Diseases: None - Past Medical History & Family History Past Medical History?: Yes - Past Social History Smoking Status: Heavy Smoker > 10 Cigarettes Daily Chewing Tobacco Use: No Alcohol: None Drugs: Other Home Situation {Lives}: With Family - CARDIAC Hx Cardiac Disorders: No - PULMONARY Hx Respiratory Disorders: Yes Hx Bronchitis: Yes Hx Chronic Obstructive Pulmonary Disease (COPD): Yes Hx Respiratory Tract Infection: Yes - NEUROLOGICAL Hx Neurological Disorder: No - HEENT Hx HEENT Problems: No - RENAL Hx Chronic Kidney Disease: No - ENDOCRINE/METABOLIC Hx Endocrine Disorders: No - HEMATOLOGICAL/ONCOLOGICAL Hx Blood Disorders: No - INTEGUMENTARY Hx Dermatological Problems: No - MUSCULOSKELETAL/RHEUMATOLOGICAL Hx Musculoskeletal Disorders: No Hx Falls: No - GASTROINTESTINAL Hx Diverticulitis: Yes - GENITOURINARY/GYNECOLOGICAL Hx Genitourinary Disorders: No - PSYCHIATRIC Hx Anxiety: Yes Hx Depression: Yes Hx Substance Use: No - SURGICAL HISTORY Hx Surgeries: Yes Hx Section: Yes - ANESTHESIA Hx Anesthesia: Yes Hx Anesthesia Reactions: No Hx Malignant Hyperthermia: No Has any member of the family had a problem w/ anesthesia?: No Meds Allergies/Adverse Reactions: Allergies Allergy/AdvReac Type Severity Reaction Status Date / Time No Known Allergies Allergy Unverified 06/20/17 06:02 - Medications Medications: Current Medications Acetaminophen (Tylenol 325 Mg Supp) 325 mg [place] Q6 PRN PRN Reason: Pain, moderate (4-7) Last Admin: 06/20/17 16:20 Dose: 325 mg Albuterol/Ipratropium (Duoneb 3 Mg/0.5 Mg (3 Ml) Ud) 3 ml INH RQ6 [facility] Last Admin: 06/21/17 13:34 Dose: 3 ml Enoxaparin Sodium (Lovenox) 40 mg SC DAILY [facility] Last Admin: 06/21/17 10:01 Dose: 40 mg Famotidine (Pepcid) 20 mg IVP Q12H [facility] Last Admin: 06/21/17 12:08 Dose: 20 mg Hydromorphone HCl (Dilaudid) 1 mg IVP Q8 PRN PRN Reason: Pain, severe (8-10) Last Admin: 06/21/17 12:08 Dose: 1 mg Metronidazole (Flagyl) 500 mg in 100 mls @ 100 mls/hr IVPB Q8 [facility] Last Admin: 06/21/17 14:45 Dose: 100 mls/hr Piperacillin Sod/Tazobactam Sod (Zosyn 3.375 Gm Iv Premix) 3.375 gm in 50 mls @ 100 mls/hr IVPB Q8H [facility] Last Admin: 06/21/17 16:00 Dose: 100 mls/hr Nicotine (Nicoderm Cq) 1 patch TD DAILY [facility] Last Admin: 06/21/17 10:09 Dose: 1 patch Pneumococcal Polyvalent Vaccine (Pneumovax 23 Vaccine) 0.5 ml IM .ONCE ONE Stop: 06/22/17 10:01 Fluticasone/Salmeterol (Advair Diskus 250/50) 1 puff INH RQ12 [facility] Last Admin: 06/21/17 08:42 Dose: 1 puff Physical Exam - Constitutional Appears: Non-toxic, No Acute Distress, Older Than Stated Age - Eye Exam Eye Exam: Normal appearance Pupil Exam: NORMAL ACCOMODATION - ENT Exam ENT Exam: Mucous Membranes Moist - Respiratory Exam Respiratory Exam: Decreased Breath Sounds, NORMAL BREATHING PATTERN - Cardiovascular Exam Cardiovascular Exam: REGULAR RHYTHM - Rectal Exam Rectal Exam: Deferred - Back Exam Back exam: NORMAL INSPECTION - Neurological Exam Neurological exam: Alert, Oriented x3 - Psychiatric Exam Psychiatric exam: Anxious, Depressed - Skin Skin Exam: Warm Results - Vital Signs Recent Vital Signs: Last Vital Signs Temp 99.4 F 06/21/17 16:00 Pulse 92 H 06/21/17 16:00 Resp 20 06/21/17 16:00 BP 102/64 06/21/17 16:00 Pulse Ox 95 06/21/17 16:00 - Labs Result Diagrams: 06/21/17 07:50 06/21/17 07:50 Labs: Laboratory Results - last 24 hr 06/20/17 06/20/17 06/21/17 06:07 06:07 07:50 WBC 22.0 H 20.5 H RBC 4.90 3.95 Hgb 15.0 12.1 D Hct 44.1 36.3 MCV 90.0 91.9 MCH 30.6 30.6 MCHC 34.0 33.4 RDW 13.6 14.0 Plt Count 308 246 MPV 10.1 10.2 Neut % (Auto) 84.7 H 84.7 H Lymph % (Auto) 8.9 L 9.3 L [place] % (Auto) 5.8 5.2 Eos % (Auto) 0.1 0.6 Baso % (Auto) 0.5 0.2 Neut # 18.6 H 17.4 H Lymph # 2.0 1.9 [place] # 1.3 H 1.1 H Eos # 0.0 0.1 Baso # 0.1 0.0 Neutrophils % (Manual) 85 H 84 H Band Neutrophils % 1 Lymphocytes % (Manual) 10 L 11 L Monocytes % (Manual) 5 4 Platelet Estimate Normal Normal Large Platelets Present Giant Platelets Present RBC Morphology Normal Poikilocytosis (manual Slight Anisocytosis (manual) Slight ESR 40 H Sodium 136 Potassium 3.8 Chloride 101 Carbon Dioxide 22 Anion Gap 17 BUN 14 Creatinine 1.0 Est GFR ( Amer) > 60 Est GFR (Non-Af Amer) 55 Random Glucose 99 Calcium 8.9 Total Bilirubin 0.6 AST 33 ALT 51 Alkaline Phosphatase 76 Total Protein 8.5 H Albumin 4.4 Globulin 4.1 H Albumin/Globulin Ratio 1.1 Lipase 64 06/21/17 07:50 WBC RBC Hgb Hct MCV MCH MCHC RDW Plt Count MPV Neut % (Auto) Lymph % (Auto) [place] % (Auto) Eos % (Auto) Baso % (Auto) Neut # Lymph # [place] # Eos # Baso # Neutrophils % (Manual) Band Neutrophils % Lymphocytes % (Manual) Monocytes % (Manual) Platelet Estimate Large Platelets Giant Platelets RBC Morphology Poikilocytosis (manual Anisocytosis (manual) ESR Sodium 132 Potassium 3.6 Chloride 104 Carbon Dioxide 21 L Anion Gap 11 BUN 11 Creatinine 0.8 Est GFR ( Amer) > 60 Est GFR (Non-Af Amer) > 60 Random Glucose 96 Calcium 7.9 L Total Bilirubin 1.0 AST 21 ALT 41 Alkaline Phosphatase 57 Total Protein 5.5 L Albumin 3.0 L Globulin 2.4 Albumin/Globulin Ratio 1.3 Lipase Assessment & Plan (1) Diverticulitis Status: Acute Comment: maria guadalupe (2) Leukocytosis Status: Acute (3) Abscess Status: Suspected (4) Anxiety and depression Status: Acute (5) COPD (chronic obstructive pulmonary disease) Status: Chronic Comment: bronchitis
[2017-06-22] MEDS: Piperacill/Tazo 3.375gm in Dex 3.375 GM/50 ML BAG IVPB SCH ×4 (00:15→21:07)
[2017-06-22] MEDS: Albuterol-Ipratrop 3 mg / 0.5 (3 ml) UD INH SCH ×3 (01:40→13:23)
[2017-06-22] MEDS: metroNIDAZOLE IV 500 mg/100 ml 500 MG/100 ML BAG IVPB SCH ×3 (05:52→22:03)
[2017-06-22] MEDS: Fluticasone-Salmeterol 250-50mcg Diskus INH SCH ×2 (07:20→19:51)
--- NOTE | 2017-06-22 08:30 | CP.PCM.PN ---
Subjective - Date & Time of Evaluation Date of Evaluation: 06/22/17 Time of Evaluation: 08:27 - Subjective Subjective: F/U abdom Pian Pt reports less pain. Feeling better. Stool- soft this am. Denies fever, chills, RB< melena, SZ, CP, SOB. RUSSELL Objective - Vital Signs/Intake and Output Vital Signs (last 24 hours): Temp Pulse Resp BP Pulse Ox 97.8 F 77 20 98/60 L 97 06/21/17 23:30 06/21/17 23:30 06/21/17 23:30 06/21/17 23:30 06/21/17 23:30 Intake and Output: 06/22/17 06/22/17 06:59 18:59 Intake Total 180 Balance 180 - Medications Medications: Current Medications Acetaminophen (Tylenol 325 Mg Supp) 325 mg [place] Q6 PRN PRN Reason: Pain, moderate (4-7) Last Admin: 06/20/17 16:20 Dose: 325 mg Albuterol/Ipratropium (Duoneb 3 Mg/0.5 Mg (3 Ml) Ud) 3 ml INH RQ6 [facility] Last Admin: 06/22/17 01:40 Dose: Not Given Enoxaparin Sodium (Lovenox) 40 mg SC DAILY [facility] Last Admin: 06/21/17 10:01 Dose: 40 mg Famotidine (Pepcid) 20 mg IVP Q12H [facility] Last Admin: 06/22/17 00:16 Dose: 20 mg Hydromorphone HCl (Dilaudid) 1 mg IVP Q8 PRN PRN Reason: Pain, severe (8-10) Last Admin: 06/21/17 12:08 Dose: 1 mg Metronidazole (Flagyl) 500 mg in 100 mls @ 100 mls/hr IVPB Q8 [facility] Last Admin: 06/22/17 05:52 Dose: 100 mls/hr Piperacillin Sod/Tazobactam Sod (Zosyn 3.375 Gm Iv Premix) 3.375 gm in 50 mls @ 100 mls/hr IVPB Q8H [facility] Last Admin: 06/22/17 00:15 Dose: 100 mls/hr Nicotine (Nicoderm Cq) 1 patch TD DAILY [facility] Last Admin: 06/21/17 10:09 Dose: 1 patch Pneumococcal Polyvalent Vaccine (Pneumovax 23 Vaccine) 0.5 ml IM .ONCE ONE Stop: 06/22/17 10:01 Fluticasone/Salmeterol (Advair Diskus 250/50) 1 puff INH RQ12 [facility] Last Admin: 06/21/17 19:45 Dose: 1 puff - Labs Labs: 06/21/17 07:50 06/21/17 07:50 PT 13.4 SECONDS (9.7-12.2) H 06/20/17 14:06 INR 1.2 06/20/17 14:06 APTT 35 SECONDS (21-34) H 06/20/17 14:06 - Constitutional Appears: Non-toxic - Neck Exam Neck Exam: absent: Tenderness - Respiratory Exam Respiratory Exam: Clear to Ausculation Bilateral - Cardiovascular Exam Cardiovascular Exam: RRR - GI/Abdominal Exam GI & Abdominal Exam: Soft, Tenderness, Normal Bowel Sounds. absent: Distended, Rebound Additional comments: Mild- mod tenderness LLQ Assessment and Plan (1) Abdominal pain Assessment & Plan: Diverticulitis Status: Acute (2) Anxiety and depression Status: Acute (3) Diverticulitis Assessment & Plan: WBC 22 to 20. Stool- soft- not watery. Pt reports feeling better with less pain. REC: COntinue IV antibiotics, check labs, check wbc, check stool c difficile. Discussed with DR Baker Status: Acute (4) Leukocytosis Status: Acute (5) COPD (chronic obstructive pulmonary disease) Status: Chronic
--- NOTE | 2017-06-22 08:45 | CP.PCM.PN ---
Subjective - Date & Time of Evaluation Date of Evaluation: 06/22/17 Time of Evaluation: 07:15 - Subjective Subjective: General Surgery Pt S&E, NAEO. Tolerating CLD. Minimal pain today. Had a small loose BM, no blood. No F/C, N/V. Objective - Vital Signs/Intake and Output Vital Signs (last 24 hours): Temp Pulse Resp BP Pulse Ox 97.8 F 77 20 98/60 L 97 06/21/17 23:30 06/21/17 23:30 06/21/17 23:30 06/21/17 23:30 06/21/17 23:30 Intake and Output: 06/22/17 06/22/17 06:59 18:59 Intake Total 180 Balance 180 - Medications Medications: Current Medications Acetaminophen (Tylenol 325 Mg Supp) 325 mg [place] Q6 PRN PRN Reason: Pain, moderate (4-7) Last Admin: 06/20/17 16:20 Dose: 325 mg Albuterol/Ipratropium (Duoneb 3 Mg/0.5 Mg (3 Ml) Ud) 3 ml INH RQ6 [facility] Last Admin: 06/22/17 01:40 Dose: Not Given Enoxaparin Sodium (Lovenox) 40 mg SC DAILY [facility] Last Admin: 06/21/17 10:01 Dose: 40 mg Famotidine (Pepcid) 20 mg IVP Q12H [facility] Last Admin: 06/22/17 00:16 Dose: 20 mg Hydromorphone HCl (Dilaudid) 1 mg IVP Q8 PRN PRN Reason: Pain, severe (8-10) Last Admin: 06/21/17 12:08 Dose: 1 mg Metronidazole (Flagyl) 500 mg in 100 mls @ 100 mls/hr IVPB Q8 [facility] Last Admin: 06/22/17 05:52 Dose: 100 mls/hr Piperacillin Sod/Tazobactam Sod (Zosyn 3.375 Gm Iv Premix) 3.375 gm in 50 mls @ 100 mls/hr IVPB Q8H [facility] Last Admin: 06/22/17 00:15 Dose: 100 mls/hr Nicotine (Nicoderm Cq) 1 patch TD DAILY [facility] Last Admin: 06/21/17 10:09 Dose: 1 patch Pneumococcal Polyvalent Vaccine (Pneumovax 23 Vaccine) 0.5 ml IM .ONCE ONE Stop: 06/22/17 10:01 Fluticasone/Salmeterol (Advair Diskus 250/50) 1 puff INH RQ12 [facility] Last Admin: 06/21/17 19:45 Dose: 1 puff - Labs Labs: 06/22/17 08:09 06/21/17 07:50 PT 13.4 SECONDS (9.7-12.2) H 06/20/17 14:06 INR 1.2 06/20/17 14:06 APTT 35 SECONDS (21-34) H 06/20/17 14:06 - Constitutional Appears: Non-toxic, No Acute Distress - Head Exam Head Exam: ATRAUMATIC, NORMOCEPHALIC - Respiratory Exam Respiratory Exam: NORMAL BREATHING PATTERN. absent: Respiratory Distress - GI/Abdominal Exam GI & Abdominal Exam: Soft, Tenderness (in LLQ). absent: Distended, Firm, Guarding, Rigid - Neurological Exam Neurological Exam: Alert, Awake - Skin Skin Exam: Dry, Warm Assessment and Plan - Assessment and Plan (Free Text) Assessment: 67F with diverticulitis Plan: F/U CDiff testing Pain control Continue Abx, leukocytosis increased. Will D/W Dr. Olivia Arredondo PGY4
[2017-06-22 08:47] LABS: CHLORIDE 106 mmol/L (98-107)
[2017-06-22 08:48] LABS: POTASSIUM 3.8 mmol/L (3.6-5.2); SODIUM 136 mmol/L (132-148)
[2017-06-22 08:50] LABS: ALB/GLOB RATIO 1.2 (1.0-2.1); ALKALINE PHOSPHATASE 64 U/L (38-126); AST/SGOT 17 U/L (14-36); BILIRUBIN,TOTAL 0.7 mg/dL (0.2-1.3); CARBON DIOXIDE 22 mmol/L (22-30); GFR AFRICAN-AMERICAN > 60; TOTAL PROTEIN 5.5 g/dL (6.3-8.3)
[2017-06-22 08:51] LABS: ALT/SGPT 36 U/L (9-52); BLOOD UREA NITROGEN 7 mg/dL (7-17); CALCIUM 8.2 mg/dl (8.6-10.4); GLUCOSE,RANDOM 102 mg/dL (65-105)
[2017-06-22] MEDS ORDERED: Pneumococcal 23-Valent Vaccine IM ONE (10:00)
[2017-06-22] MEDS ORDERED: Influenza Vaccine 60 mcg/0.5 mL SYR (4YR UP) IM ONE (10:00)
[2017-06-22] MEDS: Enoxaparin 40 mg Syringe SC SCH (11:15)
[2017-06-22] MEDS: HYDROmorphone 1 mg/ml ISec IVP PRN (13:47)
--- NOTE | 2017-06-22 17:10 | CP.PCM.CON ---
History of Present Illness - History of Present Illness History of Present Illness: called to see for copd management admitted for diverticulitis h/o smoking for 50 yrs approx 1/2 ppd add spiriva smoking cessation Review of Systems - Respiratory Respiratory: Chest Congestion, Excessive Mucous Production - Gastrointestinal Gastrointestinal: Abdominal Pain Past Patient History - Infectious Disease Hx of Infectious Diseases: None - Past Medical History & Family History Past Medical History?: Yes - Past Social History Smoking Status: Heavy Smoker > 10 Cigarettes Daily Chewing Tobacco Use: No Alcohol: None Drugs: Other Home Situation {Lives}: With Family - CARDIAC Hx Cardiac Disorders: No - PULMONARY Hx Chronic Obstructive Pulmonary Disease (COPD): Yes - NEUROLOGICAL Hx Neurological Disorder: No - HEENT Hx HEENT Problems: No - RENAL Hx Chronic Kidney Disease: No - ENDOCRINE/METABOLIC Hx Endocrine Disorders: No - HEMATOLOGICAL/ONCOLOGICAL Hx Blood Disorders: No - INTEGUMENTARY Hx Dermatological Problems: No - MUSCULOSKELETAL/RHEUMATOLOGICAL Hx Musculoskeletal Disorders: No Hx Falls: No - GASTROINTESTINAL Hx Diverticulitis: Yes - GENITOURINARY/GYNECOLOGICAL Hx Genitourinary Disorders: No - PSYCHIATRIC Hx Anxiety: Yes Hx Depression: Yes Hx Substance Use: No - SURGICAL HISTORY Hx Surgeries: Yes Hx Section: Yes - ANESTHESIA Hx Anesthesia: Yes Hx Anesthesia Reactions: No Hx Malignant Hyperthermia: No Has any member of the family had a problem w/ anesthesia?: No Meds Allergies/Adverse Reactions: Allergies Allergy/AdvReac Type Severity Reaction Status Date / Time No Known Allergies Allergy Unverified 06/20/17 06:02 - Medications Medications: Current Medications Acetaminophen (Tylenol 325 Mg Supp) 325 mg [place] Q6 PRN PRN Reason: Pain, moderate (4-7) Last Admin: 06/20/17 16:20 Dose: 325 mg Albuterol/Ipratropium (Duoneb 3 Mg/0.5 Mg (3 Ml) Ud) 3 ml INH RQ6 [facility] Last Admin: 06/22/17 13:23 Dose: 3 ml Enoxaparin Sodium (Lovenox) 40 mg SC DAILY [facility] Last Admin: 06/22/17 11:15 Dose: 40 mg Famotidine (Pepcid) 20 mg PO BID [facility] Hydromorphone HCl (Dilaudid) 1 mg IVP Q8 PRN PRN Reason: Pain, severe (8-10) Last Admin: 06/22/17 13:47 Dose: 1 mg Metronidazole (Flagyl) 500 mg in 100 mls @ 100 mls/hr IVPB Q8 [facility] Last Admin: 06/22/17 13:44 Dose: 100 mls/hr Piperacillin Sod/Tazobactam Sod (Zosyn 3.375 Gm Iv Premix) 3.375 gm in 50 mls @ 100 mls/hr IVPB Q8H [facility] Last Admin: 06/22/17 16:03 Dose: 100 mls/hr Nicotine (Nicoderm Cq) 1 patch TD DAILY [facility] Last Admin: 06/22/17 11:19 Dose: 1 patch Fluticasone/Salmeterol (Advair Diskus 250/50) 1 puff INH RQ12 [facility] Last Admin: 06/22/17 07:20 Dose: 1 puff Physical Exam - Constitutional Appears: No Acute Distress - Head Exam Head Exam: ATRAUMATIC, NORMOCEPHALIC - Eye Exam Eye Exam: Normal appearance - ENT Exam ENT Exam: Mucous Membranes Moist - Neck Exam Neck exam: Positive for: Normal Inspection - Respiratory Exam Respiratory Exam: Decreased Breath Sounds, Rhonchi - Cardiovascular Exam Cardiovascular Exam: REGULAR RHYTHM, +S1, +S2 - GI/Abdominal Exam GI & Abdominal Exam: Hypoactive Bowel Sounds, Soft - Rectal Exam Rectal Exam: Deferred - Neurological Exam Neurological exam: Alert, Oriented x3 - Psychiatric Exam Psychiatric exam: Normal Affect, Normal Mood - Skin Skin Exam: Intact Results - Vital Signs Recent Vital Signs: Last Vital Signs Temp 98.1 F 06/22/17 16:00 Pulse 64 06/22/17 16:00 Resp 20 06/22/17 16:00 BP 94/56 L 06/22/17 16:00 Pulse Ox 97 06/22/17 16:00 - Labs Result Diagrams: 06/21/17 07:50 06/22/17 08:09 Labs: Laboratory Results - last 24 hr 06/21/17 06/22/17 06/22/17 07:50 08:09 08:09 WBC Cancelled RBC Cancelled Hgb Cancelled Hct Cancelled MCV Cancelled MCH Cancelled MCHC Cancelled RDW Cancelled Plt Count Cancelled MPV Cancelled Neut % (Auto) Cancelled Lymph % (Auto) Cancelled [place] % (Auto) Cancelled Eos % (Auto) Cancelled Baso % (Auto) Cancelled Neut # Cancelled Lymph # Cancelled [place] # Cancelled Eos # Cancelled Baso # Cancelled Neutrophils % (Manual) Cancelled Band Neutrophils % Cancelled Lymphocytes % (Manual) Cancelled Reactive Lymphs % Cancelled Monocytes % (Manual) Cancelled Eosinophils % (Manual) Cancelled Basophils % (Manual) Cancelled Metamyelocytes % Cancelled Myelocytes % Cancelled Promyelocytes % Cancelled Blast Cells % Cancelled Plasma Cell % (Manual) Cancelled Nucleated RBC % Cancelled Hypersegmented Polys Cancelled Smudge Cells Cancelled Toxic Granulation Cancelled Dohle Bodies Cancelled Dominique Rods Cancelled Platelet Estimate Cancelled Plt Clumps, EDTA Cancelled Large Platelets Cancelled Giant Platelets Cancelled RBC Morphology Cancelled Polychromasia Cancelled Hypochromasia (manual) Cancelled Poikilocytosis (manual Cancelled Basophilic Stippling Cancelled Anisocytosis (manual) Cancelled Microcytosis (manual) Cancelled Macrocytosis (manual) Cancelled Spherocytes Cancelled Sickle Cells Cancelled Target Cells Cancelled Tear Drop Cells Cancelled Ovalocytes Cancelled Stomatocytes Cancelled Helmet Cells Cancelled [place] Bodies Cancelled [place] Cells Cancelled Acanthocytes (Spur) Cancelled Rouleaux Cancelled Schistocytes Cancelled Sodium 136 Potassium 3.8 Chloride 106 Carbon Dioxide 22 Anion Gap 13 BUN 7 Creatinine 0.7 Est GFR ( Amer) > 60 Est GFR (Non-Af Amer) > 60 Random Glucose 102 Calcium 8.2 L Ionized Calcium 5.4 Total Bilirubin 0.7 AST 17 ALT 36 Alkaline Phosphatase 64 Total Protein 5.5 L Albumin 3.0 L Globulin 2.5 Albumin/Globulin Ratio 1.2 Assessment & Plan (1) COPD (chronic obstructive pulmonary disease) Status: Chronic (2) Diverticulitis Status: Acute
[2017-06-22] MEDS: Albuterol-Ipratrop 3 mg / 0.5 (3 ml) UD INH PRN (19:52)
--- NOTE | 2017-06-22 20:11 | CP.PCM.PN ---
Subjective - Date & Time of Evaluation Date of Evaluation: 06/22/17 Time of Evaluation: 20:04 - Subjective Subjective: INFECTIUS DISEASE PROGRESS NOTE PERFECTO AKBAR MD, FACP 3T 368-B 06/22/2017 CHART REVIEWED PT EXAMINED CASE DISCUSSED CLINICALLY THE PT IS RESPONDING AFEBRILE, WBC CANCELLED TODAY, AND LOW AND BEHOLD THIS EVENING A REPORT OF C.DIFF APPEARS TO BE POSITIVE, DRAWN WHEN(?) EITHER WAY I WILL START PO VANCOMYCIN AND START TO REDUCE HER ZOSYN, HER WBC TO BE ORDERED FOR THE AM, THIS MAYBE ELEVATED EITHER FROM HER DIVERTICULITIS VS STEROIDS VS C. DIFF(!). CLINICALLY SHE IS GETTING BETTER. NURSING TO LOOK INTO WHEN THE STOOL SAMPLE WAS SENT AND SO ON. Objective - Vital Signs/Intake and Output Vital Signs (last 24 hours): Temp Pulse Resp BP Pulse Ox 98.1 F 64 20 94/56 L 97 06/22/17 16:00 06/22/17 16:00 06/22/17 16:00 06/22/17 16:00 06/22/17 16:00 Intake and Output: 06/22/17 06/23/17 18:59 06:59 Intake Total 800 Balance 800 - Medications Medications: Current Medications Acetaminophen (Tylenol 325 Mg Supp) 325 mg [place] Q6 PRN PRN Reason: Pain, moderate (4-7) Last Admin: 06/20/17 16:20 Dose: 325 mg Albuterol/Ipratropium (Duoneb 3 Mg/0.5 Mg (3 Ml) Ud) 3 ml INH RQ6 PRN PRN Reason: Cough and congestion Last Admin: 06/22/17 19:52 Dose: 3 ml Enoxaparin Sodium (Lovenox) 40 mg SC DAILY [facility] Last Admin: 06/22/17 11:15 Dose: 40 mg Famotidine (Pepcid) 20 mg PO BID [facility] Last Admin: 06/22/17 18:21 Dose: 20 mg Hydromorphone HCl (Dilaudid) 1 mg IVP Q8 PRN PRN Reason: Pain, severe (8-10) Last Admin: 06/22/17 13:47 Dose: 1 mg Metronidazole (Flagyl) 500 mg in 100 mls @ 100 mls/hr IVPB Q8 [facility] Last Admin: 06/22/17 13:44 Dose: 100 mls/hr Piperacillin Sod/Tazobactam Sod (Zosyn 3.375 Gm Iv Premix) 3.375 gm in 50 mls @ 100 mls/hr IVPB Q8H [facility] Last Admin: 06/22/17 16:03 Dose: 100 mls/hr Nicotine (Nicoderm Cq) 1 patch TD DAILY [facility] Last Admin: 06/22/17 11:19 Dose: 1 patch Fluticasone/Salmeterol (Advair Diskus 250/50) 1 puff INH RQ12 [facility] Last Admin: 06/22/17 19:51 Dose: 1 puff Tiotropium [place] (Spiriva) 18 mcg INH RQ24 [facility] Vancomycin HCl (Vancocin (Oral Or Rectal Use)) 125 mg PO QID REPLACED BY [facility] - Labs Labs: 06/22/17 08:09 06/22/17 08:09 PT 13.4 SECONDS (9.7-12.2) H 06/20/17 14:06 INR 1.2 06/20/17 14:06 APTT 35 SECONDS (21-34) H 06/20/17 14:06 - Constitutional Appears: Non-toxic, No Acute Distress - Head Exam Head Exam: NORMAL INSPECTION - Eye Exam Eye Exam: Normal appearance - ENT Exam ENT Exam: Mucous Membranes Moist - Respiratory Exam Respiratory Exam: Decreased Breath Sounds, NORMAL BREATHING PATTERN - Cardiovascular Exam Cardiovascular Exam: REGULAR RHYTHM - GI/Abdominal Exam GI & Abdominal Exam: Soft, Normal Bowel Sounds. absent: Tenderness, Rebound - Rectal Exam Rectal Exam: Deferred - Neurological Exam Neurological Exam: Alert, Awake - Psychiatric Exam Psychiatric exam: Anxious - Skin Skin Exam: Warm Assessment and Plan (1) Diverticulitis Status: Acute (2) Leukocytosis Status: Acute (3) Abscess Status: Suspected (4) Anxiety and depression Status: Acute (5) COPD (chronic obstructive pulmonary disease) Status: Chronic (6) C. difficile colitis Assessment & Plan: OF NOTE SHE WAS ON ANTIBIOTICS AT HOME FOR HER COPD. Status: Acute
[2017-06-22] MEDS: Vancomycin 125 MG/5 ML SOLN (ORAL/RECTAL) PO SCH (21:08)
--- NOTE | 2017-06-22 23:54 | PN ---
DATE: 06/22/2017SUBJECTIVE: The patient is seen today 06/22/[address] Urrutia. The patient still has wheezing and cough and exertional shortness of breath. PHYSICAL EXAMINATION: VITAL SIGNS: Blood pressure is 98/60, temperature 67.8, respiratory rate 20, and pulse 77. HEENT: Pupils equal, reactive to light. Normal-appearing mucosa of the conjunctivae, oropharyngeal and nasal membrane mucosa. NECK: Supple. No JVD. No carotid bruit. No lymph node. No thyromegaly. CHEST AND LUNGS: Bilateral symmetrical expansion. Good air exchange. No rales. The patient has scattered rhonchi all over lung [place]. CARDIOVASCULAR: PMI not localized. S1 and S2. No additional sounds. ABDOMEN: Normoactive bowel sounds. No tenderness. No organomegaly. No masses. EXTREMITIES: No cyanosis, no clubbing, no edema. CENTRAL NERVOUS SYSTEM: Alert, awake, oriented x2. No neurological deficit could be appreciated. ASSESSMENT: 1. Exacerbation of chronic obstructive pulmonary disease. 2. Smoker. 3. Allergic rhinitis. PLAN: Continue current medications and follow recommendations of deli manager as well as infectious disease. Gabriella Dumont MD
[2017-06-23] MEDS: metroNIDAZOLE IV 500 mg/100 ml 500 MG/100 ML BAG IVPB SCH ×3 (05:05→21:00)
[2017-06-23] MEDS: Albuterol-Ipratrop 3 mg / 0.5 (3 ml) UD INH PRN ×2 (07:45→19:34)
[2017-06-23] MEDS: Tiotropium 18 mcg Cap For Inhalation INH SCH (07:45)
[2017-06-23] MEDS: Fluticasone-Salmeterol 250-50mcg Diskus INH SCH ×2 (07:46→19:34)
[2017-06-23] MEDS: Vancomycin 125 MG/5 ML SOLN (ORAL/RECTAL) PO SCH ×4 (09:16→21:00)
[2017-06-23] MEDS: Enoxaparin 40 mg Syringe SC SCH (09:16)
[2017-06-23] MEDS: Piperacill/Tazo 3.375gm in Dex 3.375 GM/50 ML BAG IVPB SCH ×2 (09:16→22:23)
--- NOTE | 2017-06-23 13:14 | CP.PCM.PN ---
Subjective - Date & Time of Evaluation Date of Evaluation: 06/23/17 Time of Evaluation: 13:11 - Subjective Subjective: CC: follow up abdominal pain CDiff toxin positive Feels much better, more cheerful. Denies abdominal pain. + Diarrhea. No labs available today. Objective - Vital Signs/Intake and Output Vital Signs (last 24 hours): Temp Pulse Resp BP Pulse Ox 98.3 F 68 20 110/68 97 06/23/17 08:00 06/23/17 08:00 06/23/17 08:00 06/23/17 08:00 06/23/17 08:00 Intake and Output: 06/23/17 06/23/17 06:59 18:59 Intake Total 740 Balance 740 - Medications Medications: Current Medications Acetaminophen (Tylenol 325 Mg Supp) 325 mg [place] Q6 PRN PRN Reason: Pain, moderate (4-7) Last Admin: 06/20/17 16:20 Dose: 325 mg Albuterol/Ipratropium (Duoneb 3 Mg/0.5 Mg (3 Ml) Ud) 3 ml INH RQ6 PRN PRN Reason: Cough and congestion Last Admin: 06/23/17 07:45 Dose: 3 ml Enoxaparin Sodium (Lovenox) 40 mg SC DAILY [facility] Last Admin: 06/23/17 09:16 Dose: 40 mg Famotidine (Pepcid) 20 mg PO BID [facility] Last Admin: 06/23/17 09:16 Dose: 20 mg Hydromorphone HCl (Dilaudid) 1 mg IVP Q8 PRN PRN Reason: Pain, severe (8-10) Last Admin: 06/22/17 13:47 Dose: 1 mg Metronidazole (Flagyl) 500 mg in 100 mls @ 100 mls/hr IVPB Q8 [facility] Last Admin: 06/23/17 05:05 Dose: 100 mls/hr Piperacillin Sod/Tazobactam Sod (Zosyn 3.375 Gm Iv Premix) 3.375 gm in 50 mls @ 100 mls/hr IVPB Q12 [facility] Last Admin: 06/23/17 09:16 Dose: 100 mls/hr Nicotine (Nicoderm Cq) 1 patch TD DAILY [facility] Last Admin: 06/23/17 09:50 Dose: 1 patch Fluticasone/Salmeterol (Advair Diskus 250/50) 1 puff INH RQ12 [facility] Last Admin: 06/23/17 07:46 Dose: 1 puff Tiotropium [place] (Spiriva) 18 mcg INH RQ24 [facility] Last Admin: 06/23/17 07:45 Dose: 18 mcg Vancomycin HCl (Vancocin (Oral Or Rectal Use)) 125 mg PO QID [facility] Last Admin: 06/23/17 09:16 Dose: 125 mg - Labs Labs: 06/22/17 08:09 06/22/17 08:09 PT 13.4 SECONDS (9.7-12.2) H 06/20/17 14:06 INR 1.2 06/20/17 14:06 APTT 35 SECONDS (21-34) H 06/20/17 14:06 - Constitutional Appears: Well, No Acute Distress - Head Exam Head Exam: NORMOCEPHALIC - Eye Exam Eye Exam: absent: Scleral icterus - Neck Exam Neck Exam: Normal Inspection - Respiratory Exam Respiratory Exam: Clear to Ausculation Bilateral - Cardiovascular Exam Cardiovascular Exam: REGULAR RHYTHM - GI/Abdominal Exam GI & Abdominal Exam: Soft. absent: Tenderness, Mass Assessment and Plan (1) Diverticulitis Assessment & Plan: Most likely C Difficile colitis explains the CT finding of inflammatory changes in the left colon in association with incidental diverticulosis. Status: Acute (2) C. difficile colitis Assessment & Plan: On PO Vanco and IV Flagyl. Clinically improving. Consider stopping Zosyn- will defer to Dr Mena's ID expertise Status: Acute
--- NOTE | 2017-06-23 14:21 | CP.PCM.CON ---
History of Present Illness - History of Present Illness History of Present Illness: SURGERY CONSULT NOTE FOR DR. GOLDBERG 67yo F with PMHx of COPD, smoker presented to the ED with LLQ abdominal pain for the past 4-6 days. The pain is worse with coughing. She has been coughing for "a long time". She has associated diarrhea, about 4-6 times per day, non bloody. She feels nauseous in the morning but denies vomiting. She also denies fever or chills. She denies recent travel. She isn't eating much because she doesn't have an appetite. CT showed extesive colonic diverticulosis with segmental moderate mural thickening of distal descending and sigmoid colon with significant pericolonic inflammatory changes consistent with acute diverticulitis. She has been started on Zosyn and Flagyl with bowel rest, NPO. PMHx: COPD, emphysema, hyperlipidemia Surgeries: C-sectionx1 Allergies: none Home medications: Benadryl PRN pruritis/rash Social history: former heavy drinker, quit etoh 7-8 years ago; smokes 8-10 cigarettes per day; denies illicit drug use Review of Systems - Review of Systems All systems: reviewed and no additional remarkable complaints except (as per HPI ) Past Patient History - Infectious Disease Hx of Infectious Diseases: None - Past Medical History & Family History Past Medical History?: Yes - Past Social History Smoking Status: Heavy Smoker > 10 Cigarettes Daily Chewing Tobacco Use: No Alcohol: None Drugs: Other Home Situation {Lives}: With Family - CARDIAC Hx Cardiac Disorders: No - PULMONARY Hx Chronic Obstructive Pulmonary Disease (COPD): Yes - NEUROLOGICAL Hx Neurological Disorder: No - HEENT Hx HEENT Problems: No - RENAL Hx Chronic Kidney Disease: No - ENDOCRINE/METABOLIC Hx Endocrine Disorders: No - HEMATOLOGICAL/ONCOLOGICAL Hx Blood Disorders: No - INTEGUMENTARY Hx Dermatological Problems: No - MUSCULOSKELETAL/RHEUMATOLOGICAL Hx Musculoskeletal Disorders: No Hx Falls: No - GASTROINTESTINAL Hx Diverticulitis: Yes - GENITOURINARY/GYNECOLOGICAL Hx Genitourinary Disorders: No - PSYCHIATRIC Hx Anxiety: Yes Hx Depression: Yes Hx Substance Use: No - SURGICAL HISTORY Hx Surgeries: Yes Hx Section: Yes - ANESTHESIA Hx Anesthesia: Yes Hx Anesthesia Reactions: No Hx Malignant Hyperthermia: No Has any member of the family had a problem w/ anesthesia?: No Meds Allergies/Adverse Reactions: Allergies Allergy/AdvReac Type Severity Reaction Status Date / Time No Known Allergies Allergy Unverified 06/20/17 06:02 - Medications Medications: Current Medications Acetaminophen (Tylenol 325 Mg Supp) 325 mg [place] Q6 PRN PRN Reason: Pain, moderate (4-7) Last Admin: 06/20/17 16:20 Dose: 325 mg Albuterol/Ipratropium (Duoneb 3 Mg/0.5 Mg (3 Ml) Ud) 3 ml INH RQ6 PRN PRN Reason: Cough and congestion Last Admin: 06/23/17 07:45 Dose: 3 ml Enoxaparin Sodium (Lovenox) 40 mg SC DAILY [facility] Last Admin: 06/23/17 09:16 Dose: 40 mg Famotidine (Pepcid) 20 mg PO BID [facility] Last Admin: 06/23/17 09:16 Dose: 20 mg Hydromorphone HCl (Dilaudid) 1 mg IVP Q8 PRN PRN Reason: Pain, severe (8-10) Last Admin: 06/22/17 13:47 Dose: 1 mg Metronidazole (Flagyl) 500 mg in 100 mls @ 100 mls/hr IVPB Q8 [facility] Last Admin: 06/23/17 13:28 Dose: 100 mls/hr Piperacillin Sod/Tazobactam Sod (Zosyn 3.375 Gm Iv Premix) 3.375 gm in 50 mls @ 100 mls/hr IVPB Q12 [facility] Last Admin: 06/23/17 09:16 Dose: 100 mls/hr Nicotine (Nicoderm Cq) 1 patch TD DAILY [facility] Last Admin: 06/23/17 09:50 Dose: 1 patch Fluticasone/Salmeterol (Advair Diskus 250/50) 1 puff INH RQ12 [facility] Last Admin: 06/23/17 07:46 Dose: 1 puff Tiotropium [place] (Spiriva) 18 mcg INH RQ24 [facility] Last Admin: 06/23/17 07:45 Dose: 18 mcg Vancomycin HCl (Vancocin (Oral Or Rectal Use)) 125 mg PO QID [facility] Last Admin: 06/23/17 13:27 Dose: 125 mg Physical Exam - Constitutional Appears: Non-toxic, No Acute Distress - Head Exam Head Exam: ATRAUMATIC, NORMAL INSPECTION - Eye Exam Eye Exam: EOMI, Normal appearance - Respiratory Exam Respiratory Exam: NORMAL BREATHING PATTERN. absent: Respiratory Distress - Cardiovascular Exam Cardiovascular Exam: +S1, +S2. absent: Tachycardia - GI/Abdominal Exam GI & Abdominal Exam: Soft, Tenderness (tender in LLQ). absent: Distended, Firm , Guarding, Rebound, Rigid Additional comments: well healed lower midline scar - Neurological Exam Neurological exam: Alert, CN II-XII Intact, Oriented x3 - Psychiatric Exam Psychiatric exam: Normal Affect, Normal Mood - Skin Skin Exam: Dry, Normal Color, Warm Results - Vital Signs Recent Vital Signs: Last Vital Signs Temp 98.3 F 06/23/17 08:00 Pulse 68 06/23/17 08:00 Resp 20 06/23/17 08:00 BP 110/68 06/23/17 08:00 Pulse Ox 97 06/23/17 08:00 - Labs Result Diagrams: 06/21/17 07:50 06/22/17 08:09 Labs: Laboratory Results - last 24 hr 06/20/17 18:22 C. difficile Ag & Toxin Positive toxin Assessment & Plan - Assessment and Plan (Free Text) Assessment: 67yo F with PMHx of COPD, current smoker who presented with LLQ abdominal pain and diarrhea and was found to have diverticulitis - Tmax 100.3 - Leukocytosis WBC 20.5 (decreased from yesterday 22.6) - Bowel rest: NPO, IV fluids - IV Abx: currently on Zosyn and Flagyl - No acute surgical intervention necessary - Per GI: check stool for CDiff toxin & Colonoscopy in 4-6 weeks, after resolution of acute inflammatory colonic process. - Discussed plan with Dr. Olivia Bennett PGY-3
--- NOTE | 2017-06-23 14:22 | CP.PCM.PN ---
Subjective - Date & Time of Evaluation Date of Evaluation: 06/23/17 Time of Evaluation: 11:35 - Subjective Subjective: General Surgery Note for Dr. Baker Patient seen and examined at bedside. No acute event overnight. She reports pain has improved. She is tolerating CLD. Patient still having loose nonbloody BMs. Patient has no other complaints today. Objective - Vital Signs/Intake and Output Vital Signs (last 24 hours): Temp Pulse Resp BP Pulse Ox 98.3 F 68 20 110/68 97 06/23/17 08:00 06/23/17 08:00 06/23/17 08:00 06/23/17 08:00 06/23/17 08:00 Intake and Output: 06/23/17 06/23/17 06:59 18:59 Intake Total 740 Balance 740 - Medications Medications: Current Medications Acetaminophen (Tylenol 325 Mg Supp) 325 mg [place] Q6 PRN PRN Reason: Pain, moderate (4-7) Last Admin: 06/20/17 16:20 Dose: 325 mg Albuterol/Ipratropium (Duoneb 3 Mg/0.5 Mg (3 Ml) Ud) 3 ml INH RQ6 PRN PRN Reason: Cough and congestion Last Admin: 06/23/17 07:45 Dose: 3 ml Enoxaparin Sodium (Lovenox) 40 mg SC DAILY [facility] Last Admin: 06/23/17 09:16 Dose: 40 mg Famotidine (Pepcid) 20 mg PO BID [facility] Last Admin: 06/23/17 09:16 Dose: 20 mg Hydromorphone HCl (Dilaudid) 1 mg IVP Q8 PRN PRN Reason: Pain, severe (8-10) Last Admin: 06/22/17 13:47 Dose: 1 mg Metronidazole (Flagyl) 500 mg in 100 mls @ 100 mls/hr IVPB Q8 [facility] Last Admin: 06/23/17 13:28 Dose: 100 mls/hr Piperacillin Sod/Tazobactam Sod (Zosyn 3.375 Gm Iv Premix) 3.375 gm in 50 mls @ 100 mls/hr IVPB Q12 [facility] Last Admin: 06/23/17 09:16 Dose: 100 mls/hr Nicotine (Nicoderm Cq) 1 patch TD DAILY [facility] Last Admin: 06/23/17 09:50 Dose: 1 patch Fluticasone/Salmeterol (Advair Diskus 250/50) 1 puff INH RQ12 [facility] Last Admin: 06/23/17 07:46 Dose: 1 puff Tiotropium [place] (Spiriva) 18 mcg INH RQ24 [facility] Last Admin: 06/23/17 07:45 Dose: 18 mcg Vancomycin HCl (Vancocin (Oral Or Rectal Use)) 125 mg PO QID [facility] Last Admin: 06/23/17 13:27 Dose: 125 mg - Labs Labs: 06/22/17 08:09 06/22/17 08:09 PT 13.4 SECONDS (9.7-12.2) H 06/20/17 14:06 INR 1.2 06/20/17 14:06 APTT 35 SECONDS (21-34) H 06/20/17 14:06 - Constitutional Appears: No Acute Distress - Head Exam Head Exam: ATRAUMATIC, NORMOCEPHALIC - Eye Exam Eye Exam: Normal appearance - ENT Exam ENT Exam: Mucous Membranes Moist - Respiratory Exam Respiratory Exam: NORMAL BREATHING PATTERN - Cardiovascular Exam Cardiovascular Exam: REGULAR RHYTHM - GI/Abdominal Exam GI & Abdominal Exam: Soft. absent: Distended, Firm, Guarding, Rigid, Tenderness , Rebound - Neurological Exam Neurological Exam: Alert, Awake, Oriented x3 - Psychiatric Exam Psychiatric exam: Normal Affect, Normal Mood - Skin Skin Exam: Dry, Intact, Normal Color, Warm Assessment and Plan - Assessment and Plan (Free Text) Plan: 67F with diverticulitis and c diff colitis -Oral vancomycin -Continue IV antibiotics -Analgesics/Anti-emetics PRN -Discussed with Dr. Olivia Ashley PGy1
[2017-06-24] MEDS: metroNIDAZOLE IV 500 mg/100 ml 500 MG/100 ML BAG IVPB SCH ×3 (05:18→21:25)
[2017-06-24] MEDS: Tiotropium 18 mcg Cap For Inhalation INH SCH (07:18)
[2017-06-24] MEDS: Fluticasone-Salmeterol 250-50mcg Diskus INH SCH ×2 (07:18→19:26)
--- NOTE | 2017-06-24 09:00 | CP.PCM.PN ---
Subjective - Date & Time of Evaluation Date of Evaluation: 06/24/17 Time of Evaluation: 07:05 - Subjective Subjective: General Surgery Pt S&E, NAEO. Pain improved, tolerating liquid diet, BMs more solid. 1 of 2 stool samples CDiff +. Wants to eat normal food. Objective - Vital Signs/Intake and Output Vital Signs (last 24 hours): Temp Pulse Resp BP Pulse Ox 98 F 66 20 122/66 97 06/24/17 07:32 06/24/17 07:32 06/24/17 07:32 06/24/17 07:32 06/24/17 07:32 Intake and Output: 06/24/17 06/24/17 06:59 18:59 Intake Total 1110 Balance 1110 - Medications Medications: Current Medications Acetaminophen (Tylenol 325 Mg Supp) 325 mg [place] Q6 PRN PRN Reason: Pain, moderate (4-7) Last Admin: 06/20/17 16:20 Dose: 325 mg Albuterol/Ipratropium (Duoneb 3 Mg/0.5 Mg (3 Ml) Ud) 3 ml INH RQ6 PRN PRN Reason: Cough and congestion Last Admin: 06/23/17 19:34 Dose: 3 ml Enoxaparin Sodium (Lovenox) 40 mg SC DAILY [facility] Last Admin: 06/23/17 09:16 Dose: 40 mg Famotidine (Pepcid) 20 mg PO BID [facility] Last Admin: 06/23/17 18:16 Dose: 20 mg Hydromorphone HCl (Dilaudid) 1 mg IVP Q8 PRN PRN Reason: Pain, severe (8-10) Last Admin: 06/22/17 13:47 Dose: 1 mg Metronidazole (Flagyl) 500 mg in 100 mls @ 100 mls/hr IVPB Q8 [facility] Last Admin: 06/24/17 05:18 Dose: 100 mls/hr Piperacillin Sod/Tazobactam Sod (Zosyn 3.375 Gm Iv Premix) 3.375 gm in 50 mls @ 100 mls/hr IVPB Q12 [facility] Last Admin: 06/23/17 22:23 Dose: 100 mls/hr Nicotine (Nicoderm Cq) 1 patch TD DAILY [facility] Last Admin: 06/23/17 09:50 Dose: 1 patch Fluticasone/Salmeterol (Advair Diskus 250/50) 1 puff INH RQ12 [facility] Last Admin: 06/24/17 07:18 Dose: Not Given Tiotropium [place] (Spiriva) 18 mcg INH RQ24 [facility] Last Admin: 06/24/17 07:18 Dose: Not Given Vancomycin HCl (Vancocin (Oral Or Rectal Use)) 125 mg PO QID [facility] Last Admin: 06/23/17 21:00 Dose: 125 mg - Labs Labs: 06/22/17 08:09 06/22/17 08:09 PT 13.4 SECONDS (9.7-12.2) H 06/20/17 14:06 INR 1.2 06/20/17 14:06 APTT 35 SECONDS (21-34) H 06/20/17 14:06 - Constitutional Appears: Non-toxic, No Acute Distress - Head Exam Head Exam: ATRAUMATIC, NORMOCEPHALIC - Eye Exam Eye Exam: EOMI. absent: Scleral icterus - Respiratory Exam Respiratory Exam: NORMAL BREATHING PATTERN. absent: Respiratory Distress - GI/Abdominal Exam GI & Abdominal Exam: Soft, Tenderness (mild in LLQ). absent: Distended, Firm, Guarding, Rigid, Rebound - Neurological Exam Neurological Exam: Alert, Awake - Skin Skin Exam: Dry, Warm Assessment and Plan - Assessment and Plan (Free Text) Assessment: 67F with diverticulitis and c diff colitis Plan: Continue Abx Ok to advance diet if GI agrees Analgesia if needed Serial abd exams D/W Dr. Olivia Arredondo PGY4
[2017-06-24] MEDS: Piperacill/Tazo 3.375gm in Dex 3.375 GM/50 ML BAG IVPB SCH (09:10)
[2017-06-24] MEDS: Vancomycin 125 MG/5 ML SOLN (ORAL/RECTAL) PO SCH ×4 (09:11→21:25)
[2017-06-24] MEDS: Enoxaparin 40 mg Syringe SC SCH (09:11)
--- NOTE | 2017-06-24 10:49 | PN ---
DATE: 06/23/2017 SUBJECTIVE: The patient is seen on 06/23/2017. She was overall feeling better, less short of breath and less wheezing. PHYSICAL EXAMINATION VITAL SIGNS: Blood pressure was 116/69, temperature 98.4, respiratory rate 20, and pulse 68. HEENT: Pupils equal and reactive to light. Normal appearing mucosa of the conjunctivae, oropharyngeal, and nasal membrane mucosa. NECK: Supple. No JVD. No carotid bruit. No lymph node. No thyromegaly. CHEST AND LUNGS: Bilateral symmetrical expansion. Decreased expiratory wheeze that was heard the day before. CARDIOVASCULAR SYSTEM: PMI not localized. S1 and S2. No additional sounds. ABDOMEN: Normoactive bowel sounds. No tenderness. No organomegaly. No masses. EXTREMITIES: No cyanosis. No clubbing. No edema. [employer]: Alert, awake, and oriented x2. No neurological deficit could be appreciated. ASSESSMENT: Exacerbation of chronic obstructive pulmonary disease, acute bronchitis. PLAN: Continue current management and antibiotics and Dr. Urrutia will be returning to cover the patient as of 06/24/2017. Gabriella Dumont MD
--- NOTE | 2017-06-24 11:09 | CP.PCM.PN ---
Subjective - Date & Time of Evaluation Date of Evaluation: 06/24/17 Time of Evaluation: 10:30 - Subjective Subjective: follow up abdom pain Less abdom pain Deneis RB, melena, ffever, chills, SZ, LOC , RUSSELL cough, hematuria Objective - Vital Signs/Intake and Output Vital Signs (last 24 hours): Temp Pulse Resp BP Pulse Ox 98 F 66 20 122/66 97 06/24/17 07:32 06/24/17 07:32 06/24/17 07:32 06/24/17 07:32 06/24/17 07:32 Intake and Output: 06/24/17 06/24/17 06:59 18:59 Intake Total 1110 Balance 1110 - Medications Medications: Current Medications Acetaminophen (Tylenol 325 Mg Supp) 325 mg [place] Q6 PRN PRN Reason: Pain, moderate (4-7) Last Admin: 06/20/17 16:20 Dose: 325 mg Albuterol/Ipratropium (Duoneb 3 Mg/0.5 Mg (3 Ml) Ud) 3 ml INH RQ6 PRN PRN Reason: Cough and congestion Last Admin: 06/23/17 19:34 Dose: 3 ml Enoxaparin Sodium (Lovenox) 40 mg SC DAILY [facility] Last Admin: 06/24/17 09:11 Dose: 40 mg Famotidine (Pepcid) 20 mg PO BID [facility] Last Admin: 06/24/17 09:10 Dose: 20 mg Hydromorphone HCl (Dilaudid) 1 mg IVP Q8 PRN PRN Reason: Pain, severe (8-10) Last Admin: 06/22/17 13:47 Dose: 1 mg Metronidazole (Flagyl) 500 mg in 100 mls @ 100 mls/hr IVPB Q8 [facility] Last Admin: 06/24/17 05:18 Dose: 100 mls/hr Piperacillin Sod/Tazobactam Sod (Zosyn 3.375 Gm Iv Premix) 3.375 gm in 50 mls @ 100 mls/hr IVPB Q12 [facility] Last Admin: 06/24/17 09:10 Dose: 100 mls/hr Nicotine (Nicoderm Cq) 1 patch TD DAILY [facility] Last Admin: 06/24/17 09:10 Dose: 1 patch Fluticasone/Salmeterol (Advair Diskus 250/50) 1 puff INH RQ12 [facility] Last Admin: 06/24/17 07:18 Dose: Not Given Tiotropium [place] (Spiriva) 18 mcg INH RQ24 [facility] Last Admin: 06/24/17 07:18 Dose: Not Given Vancomycin HCl (Vancocin (Oral Or Rectal Use)) 125 mg PO QID [facility] Last Admin: 06/24/17 09:11 Dose: 125 mg - Labs Labs: 06/22/17 08:09 06/22/17 08:09 PT 13.4 SECONDS (9.7-12.2) H 06/20/17 14:06 INR 1.2 06/20/17 14:06 APTT 35 SECONDS (21-34) H 06/20/17 14:06 - Constitutional Appears: Well - Neck Exam Neck Exam: absent: Tenderness - Respiratory Exam Respiratory Exam: Clear to Ausculation Bilateral - Cardiovascular Exam Cardiovascular Exam: RRR - GI/Abdominal Exam GI & Abdominal Exam: Soft, Tenderness, Normal Bowel Sounds - Extremities Exam Extremities Exam: absent: Calf Tenderness - Neurological Exam Neurological Exam: Awake, Oriented x3 Assessment and Plan (1) Abdominal pain Assessment & Plan: colitis- c diff, diverticulitis Status: Acute (2) Anxiety and depression Status: Acute (3) Diverticulitis Status: Acute (4) Leukocytosis Assessment & Plan: diverticulitis, and c diff. Continue isra flagyl, check CBC, WBC. Consider probiotics. Status: Acute (5) COPD (chronic obstructive pulmonary disease) Status: Chronic
[2017-06-24 11:41] LABS: BASO % 0.3 % (0.0-2.0); EOS # 0.3 K/uL (0.0-0.7); EOS % 3.3 % (0.0-4.0); HEMATOCRIT 39.2 % (34.0-47.0); LYMPH # 1.6 K/uL (1.0-4.3); LYMPH % 15.5 % (20.0-40.0); MEAN CELL VOLUME 90.9 fL (81.0-99.0); MEAN CORPUSCULAR HEMOGLOBIN 30.5 pg (27.0-31.0); MEAN CORPUSCULAR HGB CONC 33.5 g/dL (33.0-37.0); MEAN PLATELET VOLUME 10.1 fL (7.2-11.7); MONO # 0.9 K/uL (0.0-0.8); MONO % 9.1 % (0.0-10.0); NRBC % 0.1 % (0.0-2.0); RED CELL DISTRIBUTION WIDTH 13.9 % (11.5-14.5)
[2017-06-24 11:44] LABS: WHITE BLOOD COUNT 10.2 K/uL (4.8-10.8)
[2017-06-24 11:52] LABS: BLOOD UREA NITROGEN 5 mg/dL (7-17); CALCIUM 8.1 mg/dl (8.6-10.4); CARBON DIOXIDE 22 mmol/L (22-30); CHLORIDE 103 mmol/L (98-107); GFR AFRICAN-AMERICAN > 60; GLUCOSE,RANDOM 102 mg/dL (65-105); POTASSIUM 3.6 mmol/L (3.6-5.2); SODIUM 135 mmol/L (132-148)
--- NOTE | 2017-06-24 16:57 | CP.PCM.PN ---
Subjective - Date & Time of Evaluation Date of Evaluation: 06/24/17 Time of Evaluation: 16:57 - Subjective Subjective: Patient more comfortable. Will start regular diet Objective - Vital Signs/Intake and Output Vital Signs (last 24 hours): Temp Pulse Resp BP Pulse Ox 98 F 66 20 122/66 97 06/24/17 07:32 06/24/17 07:32 06/24/17 07:32 06/24/17 07:32 06/24/17 07:32 Intake and Output: 06/24/17 06/24/17 11:59 23:59 Intake Total 460 Balance 460 - Medications Medications: Current Medications Acetaminophen (Tylenol 325 Mg Supp) 325 mg [place] Q6 PRN PRN Reason: Pain, moderate (4-7) Last Admin: 06/20/17 16:20 Dose: 325 mg Albuterol/Ipratropium (Duoneb 3 Mg/0.5 Mg (3 Ml) Ud) 3 ml INH RQ6 PRN PRN Reason: Cough and congestion Last Admin: 06/23/17 19:34 Dose: 3 ml Enoxaparin Sodium (Lovenox) 40 mg SC DAILY [facility] Last Admin: 06/24/17 09:11 Dose: 40 mg Famotidine (Pepcid) 20 mg PO BID [facility] Last Admin: 06/24/17 09:10 Dose: 20 mg Metronidazole (Flagyl) 500 mg in 100 mls @ 100 mls/hr IVPB Q8 [facility] Last Admin: 06/24/17 13:54 Dose: 100 mls/hr Piperacillin Sod/Tazobactam Sod (Zosyn 3.375 Gm Iv Premix) 3.375 gm in 50 mls @ 100 mls/hr IVPB Q12 [facility] Last Admin: 06/24/17 09:10 Dose: 100 mls/hr Nicotine (Nicoderm Cq) 1 patch TD DAILY [facility] Last Admin: 06/24/17 09:10 Dose: 1 patch Fluticasone/Salmeterol (Advair Diskus 250/50) 1 puff INH RQ12 [facility] Last Admin: 06/24/17 07:18 Dose: Not Given Tiotropium [place] (Spiriva) 18 mcg INH RQ24 [facility] Last Admin: 06/24/17 07:18 Dose: Not Given Vancomycin HCl (Vancocin (Oral Or Rectal Use)) 125 mg PO QID [facility] Last Admin: 06/24/17 13:54 Dose: 125 mg - Labs Labs: 06/24/17 11:27 06/24/17 11:27 PT 13.4 SECONDS (9.7-12.2) H 06/20/17 14:06 INR 1.2 06/20/17 14:06 APTT 35 SECONDS (21-34) H 06/20/17 14:06 - Constitutional Appears: Non-toxic - Head Exam Head Exam: ATRAUMATIC, NORMAL INSPECTION, NORMOCEPHALIC - Eye Exam Eye Exam: Normal appearance - ENT Exam ENT Exam: Mucous Membranes Moist - Respiratory Exam Respiratory Exam: Decreased Breath Sounds - Cardiovascular Exam Cardiovascular Exam: REGULAR RHYTHM, +S1, +S2 - GI/Abdominal Exam GI & Abdominal Exam: Soft, Normal Bowel Sounds - Extremities Exam Extremities Exam: Full ROM - Neurological Exam Neurological Exam: Alert, Awake, CN II-XII Intact, Oriented x3 - Psychiatric Exam Psychiatric exam: Normal Affect - Skin Skin Exam: Normal Color Assessment and Plan (1) Abdominal pain Status: Acute (2) COPD (chronic obstructive pulmonary disease) Status: Chronic (3) Leukocytosis Status: Acute (4) Diverticulitis Status: Acute - Assessment and Plan (Free Text) Plan: Continue present rx.
--- NOTE | 2017-06-24 17:20 | CP.PCM.PN ---
Subjective - Date & Time of Evaluation Date of Evaluation: 06/24/17 Time of Evaluation: 17:17 - Subjective Subjective: feels better \ offers no complaints today eating well Objective - Vital Signs/Intake and Output Vital Signs (last 24 hours): Temp Pulse Resp BP Pulse Ox 98.4 F 70 20 126/76 96 06/24/17 16:00 06/24/17 16:00 06/24/17 16:00 06/24/17 16:00 06/24/17 16:00 Intake and Output: 06/24/17 06/24/17 06:59 18:59 Intake Total 1110 Balance 1110 - Medications Medications: Current Medications Acetaminophen (Tylenol 325 Mg Supp) 325 mg [place] Q6 PRN PRN Reason: Pain, moderate (4-7) Last Admin: 06/20/17 16:20 Dose: 325 mg Albuterol/Ipratropium (Duoneb 3 Mg/0.5 Mg (3 Ml) Ud) 3 ml INH RQ6 PRN PRN Reason: Cough and congestion Last Admin: 06/23/17 19:34 Dose: 3 ml Enoxaparin Sodium (Lovenox) 40 mg SC DAILY [facility] Last Admin: 06/24/17 09:11 Dose: 40 mg Famotidine (Pepcid) 20 mg PO BID [facility] Last Admin: 06/24/17 09:10 Dose: 20 mg Metronidazole (Flagyl) 500 mg in 100 mls @ 100 mls/hr IVPB Q8 [facility] Last Admin: 06/24/17 13:54 Dose: 100 mls/hr Piperacillin Sod/Tazobactam Sod (Zosyn 3.375 Gm Iv Premix) 3.375 gm in 50 mls @ 100 mls/hr IVPB Q12 [facility] Last Admin: 06/24/17 09:10 Dose: 100 mls/hr Nicotine (Nicoderm Cq) 1 patch TD DAILY [facility] Last Admin: 06/24/17 09:10 Dose: 1 patch Fluticasone/Salmeterol (Advair Diskus 250/50) 1 puff INH RQ12 [facility] Last Admin: 06/24/17 07:18 Dose: Not Given Tiotropium [place] (Spiriva) 18 mcg INH RQ24 [facility] Last Admin: 06/24/17 07:18 Dose: Not Given Vancomycin HCl (Vancocin (Oral Or Rectal Use)) 125 mg PO QID [facility] Last Admin: 06/24/17 13:54 Dose: 125 mg - Labs Labs: 06/24/17 11:27 06/24/17 11:27 PT 13.4 SECONDS (9.7-12.2) H 06/20/17 14:06 INR 1.2 06/20/17 14:06 APTT 35 SECONDS (21-34) H 06/20/17 14:06 - Constitutional Appears: No Acute Distress - Head Exam Head Exam: ATRAUMATIC, NORMOCEPHALIC - Eye Exam Eye Exam: Normal appearance - ENT Exam ENT Exam: Mucous Membranes Moist - Respiratory Exam Respiratory Exam: Decreased Breath Sounds - Cardiovascular Exam Cardiovascular Exam: REGULAR RHYTHM, +S1, +S2 - GI/Abdominal Exam GI & Abdominal Exam: Normal Bowel Sounds - Rectal Exam Rectal Exam: Deferred - Neurological Exam Neurological Exam: Alert, Oriented x3 - Psychiatric Exam Psychiatric exam: Normal Affect, Normal Mood - Skin Skin Exam: Intact Assessment and Plan (1) COPD (chronic obstructive pulmonary disease) Status: Chronic (2) Diverticulitis Status: Acute
--- NOTE | 2017-06-24 18:46 | CP.PCM.PN ---
Subjective - Date & Time of Evaluation Date of Evaluation: 06/24/17 Time of Evaluation: 18:43 - Subjective Subjective: INFECTIOUS DISEASE PROGRESS NOTE PERFECTO AKBAR, MMD, FACP 3T 368-B 06/24/2017 CHART REVIEWED PT EXAMINATION NOTED CASE DISCUSSED RESPONDING TO PO VANCO AND IV FLAGYL PLUS ZOSYN FOR ACUTE DIVERTICULITIS AND C.DIFF, WHICH WAS POSITIVE ON NIGHT ONE(?). TO REDISCUSS LONGER TERM THERAPY. on decresaed dose of zosyn already, d/c same and watch with po vanco or better po flagyl in this pateint, especially. Objective - Vital Signs/Intake and Output Vital Signs (last 24 hours): Temp Pulse Resp BP Pulse Ox 98.4 F 70 20 126/76 96 06/24/17 16:00 06/24/17 16:00 06/24/17 16:00 06/24/17 16:00 06/24/17 16:00 Intake and Output: 06/24/17 06/24/17 06:59 18:59 Intake Total 1110 Balance 1110 - Medications Medications: Current Medications Acetaminophen (Tylenol 325 Mg Supp) 325 mg [place] Q6 PRN PRN Reason: Pain, moderate (4-7) Last Admin: 06/20/17 16:20 Dose: 325 mg Albuterol/Ipratropium (Duoneb 3 Mg/0.5 Mg (3 Ml) Ud) 3 ml INH RQ6 PRN PRN Reason: Cough and congestion Last Admin: 06/23/17 19:34 Dose: 3 ml Enoxaparin Sodium (Lovenox) 40 mg SC DAILY [facility] Last Admin: 06/24/17 09:11 Dose: 40 mg Famotidine (Pepcid) 20 mg PO BID [facility] Last Admin: 06/24/17 18:06 Dose: 20 mg Metronidazole (Flagyl) 500 mg in 100 mls @ 100 mls/hr IVPB Q8 [facility] Last Admin: 06/24/17 13:54 Dose: 100 mls/hr Piperacillin Sod/Tazobactam Sod (Zosyn 3.375 Gm Iv Premix) 3.375 gm in 50 mls @ 100 mls/hr IVPB Q12 [facility] Last Admin: 06/24/17 09:10 Dose: 100 mls/hr Nicotine (Nicoderm Cq) 1 patch TD DAILY [facility] Last Admin: 06/24/17 09:10 Dose: 1 patch Fluticasone/Salmeterol (Advair Diskus 250/50) 1 puff INH RQ12 [facility] Last Admin: 06/24/17 07:18 Dose: Not Given Tiotropium [place] (Spiriva) 18 mcg INH RQ24 [facility] Last Admin: 06/24/17 07:18 Dose: Not Given Vancomycin HCl (Vancocin (Oral Or Rectal Use)) 125 mg PO QID [facility] Last Admin: 06/24/17 18:06 Dose: 125 mg - Labs Labs: 06/24/17 11:27 06/24/17 11:27 PT 13.4 SECONDS (9.7-12.2) H 06/20/17 14:06 INR 1.2 06/20/17 14:06 APTT 35 SECONDS (21-34) H 06/20/17 14:06 - Constitutional Appears: Non-toxic, No Acute Distress - Head Exam Head Exam: NORMAL INSPECTION - Eye Exam Eye Exam: Normal appearance - ENT Exam ENT Exam: Mucous Membranes Moist - Neck Exam Neck Exam: Normal Inspection - Respiratory Exam Respiratory Exam: Clear to Ausculation Bilateral, NORMAL BREATHING PATTERN - Cardiovascular Exam Cardiovascular Exam: REGULAR RHYTHM - GI/Abdominal Exam GI & Abdominal Exam: Soft. absent: Distended - Rectal Exam Rectal Exam: Deferred - Extremities Exam Extremities Exam: absent: Tenderness - Neurological Exam Neurological Exam: Alert, Awake Assessment and Plan (1) Diverticulitis Status: Suspected (2) Leukocytosis Status: Resolved (3) Abscess Status: Suspected (4) Anxiety and depression Status: Acute (5) COPD (chronic obstructive pulmonary disease) Status: Chronic (6) C. difficile colitis Assessment & Plan: consider po flagyl alone. Status: Acute
[2017-06-25] MEDS: metroNIDAZOLE IV 500 mg/100 ml 500 MG/100 ML BAG IVPB SCH ×2 (05:11→14:29)
[2017-06-25] MEDS: Fluticasone-Salmeterol 250-50mcg Diskus INH SCH (08:00)
[2017-06-25] MEDS: Tiotropium 18 mcg Cap For Inhalation INH SCH (08:00)
[2017-06-25] MEDS: Vancomycin 125 MG/5 ML SOLN (ORAL/RECTAL) PO SCH ×3 (10:57→17:23)
[2017-06-25] MEDS: Enoxaparin 40 mg Syringe SC SCH (10:59)
--- NOTE | 2017-06-25 12:11 | CP.PCM.PN ---
Subjective - Date & Time of Evaluation Date of Evaluation: 06/25/17 Time of Evaluation: 07:00 - Subjective Subjective: SURGERY PROGRESS NOTE FOR DR. GOLDBERG Patient seen and examined at bedside. She states that she is very happy because she is "feeling good". She is tolerating her regular diet and denies nausea or vomiting. She denies abdominal pain and she has not had any more diarrhea. Her last BM was soft. Objective - Vital Signs/Intake and Output Vital Signs (last 24 hours): Temp Pulse Resp BP Pulse Ox 98.4 F 76 20 98/63 L 96 06/25/17 07:41 06/25/17 07:41 06/25/17 07:41 06/25/17 07:41 06/25/17 07:41 Intake and Output: 06/25/17 06/25/17 06:59 18:59 Intake Total 910 Balance 910 - Medications Medications: Current Medications Acetaminophen (Tylenol 325 Mg Supp) 325 mg [place] Q6 PRN PRN Reason: Pain, moderate (4-7) Last Admin: 06/20/17 16:20 Dose: 325 mg Albuterol/Ipratropium (Duoneb 3 Mg/0.5 Mg (3 Ml) Ud) 3 ml INH RQ6 PRN PRN Reason: Cough and congestion Last Admin: 06/23/17 19:34 Dose: 3 ml Enoxaparin Sodium (Lovenox) 40 mg SC DAILY [facility] Last Admin: 06/25/17 10:59 Dose: 40 mg Famotidine (Pepcid) 20 mg PO BID [facility] Last Admin: 06/25/17 10:57 Dose: 20 mg Metronidazole (Flagyl) 500 mg in 100 mls @ 100 mls/hr IVPB Q8 [facility] Last Admin: 06/25/17 05:11 Dose: 100 mls/hr Nicotine (Nicoderm Cq) 1 patch TD DAILY [facility] Last Admin: 06/25/17 10:57 Dose: 1 patch Fluticasone/Salmeterol (Advair Diskus 250/50) 1 puff INH RQ12 [facility] Last Admin: 06/25/17 08:00 Dose: Not Given Tiotropium [place] (Spiriva) 18 mcg INH RQ24 [facility] Last Admin: 06/25/17 08:00 Dose: Not Given Vancomycin HCl (Vancocin (Oral Or Rectal Use)) 125 mg PO QID [facility] Last Admin: 06/25/17 10:57 Dose: 125 mg - Labs Labs: 06/24/17 11:27 06/24/17 11:27 PT 13.4 SECONDS (9.7-12.2) H 06/20/17 14:06 INR 1.2 06/20/17 14:06 APTT 35 SECONDS (21-34) H 06/20/17 14:06 - Constitutional Appears: Non-toxic, No Acute Distress - Respiratory Exam Respiratory Exam: NORMAL BREATHING PATTERN. absent: Respiratory Distress - Cardiovascular Exam Cardiovascular Exam: +S1, +S2. absent: Tachycardia - GI/Abdominal Exam GI & Abdominal Exam: Soft, Tenderness (mild tenderness in LLQ). absent: Distended, Firm, Guarding, Rigid, Rebound - Neurological Exam Neurological Exam: Alert, Awake - Psychiatric Exam Psychiatric exam: Normal Affect, Normal Mood - Skin Skin Exam: Dry, Normal Color, Warm Assessment and Plan - Assessment and Plan (Free Text) Assessment: 67yo F with diverticulititis and C diff colitis - Continue antibiotics per ID - Tolerating regular diet, no more diarrhea - No further surgical intervention necessary - Per GI: will need colonoscopy outpatient in 4-6 weeks - Discussed plan with Dr. Olivia Bennett PGY-3
[2017-06-25 14:51] LABS: BASO # 0.1 K/uL (0.0-0.2); BASO % 0.6 % (0.0-2.0); EOS # 0.2 K/uL (0.0-0.7); EOS % 1.8 % (0.0-4.0); HEMATOCRIT 42.8 % (34.0-47.0); LYMPH % 14.9 % (20.0-40.0); MEAN CELL VOLUME 90.5 fL (81.0-99.0); MEAN CORPUSCULAR HEMOGLOBIN 30.5 pg (27.0-31.0); MEAN CORPUSCULAR HGB CONC 33.7 g/dL (33.0-37.0); MEAN PLATELET VOLUME 9.4 fL (7.2-11.7); MONO # 1.3 K/uL (0.0-0.8); MONO % 9.2 % (0.0-10.0); NRBC % 0.1 % (0.0-2.0); RED CELL DISTRIBUTION WIDTH 13.9 % (11.5-14.5); WHITE BLOOD COUNT 13.7 K/uL (4.8-10.8)
[2017-06-25 15:07] LABS: ALB/GLOB RATIO 1.3 (1.0-2.1); ALKALINE PHOSPHATASE 65 U/L (38-126); ALT/SGPT 41 U/L (9-52); AST/SGOT 46 U/L (14-36); BILIRUBIN,TOTAL 0.5 mg/dL (0.2-1.3); BLOOD UREA NITROGEN 11 mg/dL (7-17); CALCIUM 8.4 mg/dl (8.6-10.4); CARBON DIOXIDE 24 mmol/L (22-30); CHLORIDE 100 mmol/L (98-107); GFR AFRICAN-AMERICAN > 60; GLUCOSE,RANDOM 113 mg/dL (65-105); POTASSIUM 4.1 mmol/L (3.6-5.2); SODIUM 135 mmol/L (132-148); TOTAL PROTEIN 6.6 g/dL (6.3-8.3)
--- NOTE | 2017-06-25 15:25 | CP.PCM.PN ---
Subjective - Date & Time of Evaluation Date of Evaluation: 06/25/17 Time of Evaluation: 15:23 - Subjective Subjective: CC: Follow up colitis Feels well. Denies diarrhea or abdominal pain. Tolerating diet. On PO Vanco for CDiff colitis. Leukocytosis improving. Objective - Vital Signs/Intake and Output Vital Signs (last 24 hours): Temp Pulse Resp BP Pulse Ox 98.4 F 76 20 112/76 96 06/25/17 07:41 06/25/17 12:31 06/25/17 07:41 06/25/17 12:31 06/25/17 12:31 Intake and Output: 06/25/17 06/25/17 06:59 18:59 Intake Total 910 Balance 910 - Medications Medications: Current Medications Acetaminophen (Tylenol 325 Mg Supp) 325 mg [place] Q6 PRN PRN Reason: Pain, moderate (4-7) Last Admin: 06/20/17 16:20 Dose: 325 mg Albuterol/Ipratropium (Duoneb 3 Mg/0.5 Mg (3 Ml) Ud) 3 ml INH RQ6 PRN PRN Reason: Cough and congestion Last Admin: 06/23/17 19:34 Dose: 3 ml Enoxaparin Sodium (Lovenox) 40 mg SC DAILY [facility] Last Admin: 06/25/17 10:59 Dose: 40 mg Famotidine (Pepcid) 20 mg PO BID [facility] Last Admin: 06/25/17 10:57 Dose: 20 mg Nicotine (Nicoderm Cq) 1 patch TD DAILY [facility] Last Admin: 06/25/17 10:57 Dose: 1 patch Fluticasone/Salmeterol (Advair Diskus 250/50) 1 puff INH RQ12 [facility] Last Admin: 06/25/17 08:00 Dose: Not Given Tiotropium [place] (Spiriva) 18 mcg INH RQ24 [facility] Last Admin: 06/25/17 08:00 Dose: Not Given Vancomycin HCl (Vancocin (Oral Or Rectal Use)) 125 mg PO QID [facility] Last Admin: 06/25/17 14:28 Dose: 125 mg - Labs Labs: 06/25/17 14:42 06/25/17 14:42 PT 13.4 SECONDS (9.7-12.2) H 06/20/17 14:06 INR 1.2 11/12/17 14:06 APTT 35 SECONDS (21-34) H 06/20/17 14:06 - Constitutional Appears: Well, No Acute Distress - Head Exam Head Exam: NORMOCEPHALIC - Eye Exam Eye Exam: absent: Scleral icterus - Neck Exam Neck Exam: Normal Inspection - Respiratory Exam Respiratory Exam: NORMAL BREATHING PATTERN - Cardiovascular Exam Cardiovascular Exam: REGULAR RHYTHM - GI/Abdominal Exam GI & Abdominal Exam: Soft, Normal Bowel Sounds. absent: Tenderness, Mass Assessment and Plan (1) Diverticulitis Status: Suspected (2) C. difficile colitis Assessment & Plan: Gradually improving with treatment. Rec: Continue anti- cDiff therapy x 2 weeks. Follow up in office- patient has my contact information Status: Acute
[2017-06-25 15:53] VITALS: BP 93/61; PULSE 83; TEMP 98.9; O2SAT 94
--- NOTE | 2017-06-25 18:21 | CP.PCM.DIS ---
Provider - Provider Date of Admission: 06/20/17 09:47 Attending physician: Clinton Urrutia MD Time Spent in preparation of Discharge (in minutes): 30 Diagnosis - Discharge Diagnosis (1) Abdominal pain Status: Acute (2) COPD (chronic obstructive pulmonary disease) Status: Chronic (3) Leukocytosis Status: Resolved (4) Diverticulitis Status: Suspected Hospital Course - Lab Results Lab Results: Micro Results 06/20/17 14:00 Blood Blood Culture - Final NO GROWTH AFTER 5 DAYS 06/20/17 14:00 Blood Gram Stain - Final TEST NOT PERFORMED 06/20/17 13:30 Blood Blood Culture - Final NO GROWTH AFTER 5 DAYS 06/20/17 13:30 Blood Gram Stain - Final TEST NOT PERFORMED 06/20/17 06:00 Blood Blood Culture - Final NO GROWTH AFTER 5 DAYS 06/20/17 06:00 Blood Gram Stain - Final TEST NOT PERFORMED 06/20/17 06:00 Blood Blood Culture - Final NO GROWTH AFTER 5 DAYS 06/20/17 06:00 Blood Gram Stain - Final TEST NOT PERFORMED 06/22/17 09:29 Stool Stool Culture - Final NO SALMONELLA, SHIGELLA OR CAMPYLOBACTER ISOLATED. 06/20/17 18:21 Urine,Clean Catch Urine Culture - Final No Growth (<1,000 CFU/ML) Most Recent Lab Values WBC 13.7 K/uL (4.8-10.8) H 06/25/17 14:42 RBC 4.73 Mil/uL (3.80-5.20) 06/25/17 14:42 Hgb 14.4 g/dL (11.0-16.0) 06/25/17 14:42 Hct 42.8 % (34.0-47.0) 06/25/17 14:42 MCV 90.5 fL (81.0-99.0) 06/25/17 14:42 MCH 30.5 pg (27.0-31.0) 06/25/17 14:42 MCHC 33.7 g/dL (33.0-37.0) 06/25/17 14:42 RDW 13.9 % (11.5-14.5) 06/25/17 14:42 Plt Count 408 K/uL (130-400) H 06/25/17 14:42 MPV 9.4 fL (7.2-11.7) 06/25/17 14:42 Neut % (Auto) 73.5 % (50.0-75.0) 06/25/17 14:42 Lymph % (Auto) 14.9 % (20.0-40.0) L 06/25/17 14:42 [place] % (Auto) 9.2 % (0.0-10.0) 06/25/17 14:42 Eos % (Auto) 1.8 % (0.0-4.0) 06/25/17 14:42 Baso % (Auto) 0.6 % (0.0-2.0) 06/25/17 14:42 Neut # 10.1 K/uL (1.8-7.0) H 06/25/17 14:42 Lymph # 2.0 K/uL (1.0-4.3) 06/25/17 14:42 [place] # 1.3 K/uL (0.0-0.8) H 06/25/17 14:42 Eos # 0.2 K/uL (0.0-0.7) 06/25/17 14:42 Baso # 0.1 K/uL (0.0-0.2) 06/25/17 14:42 Neutrophils % (Manual) 84 % (50-75) H 06/21/17 07:50 Band Neutrophils % 1 % (0-2) 06/21/17 07:50 Lymphocytes % (Manual) 11 % (20-40) L 06/21/17 07:50 Reactive Lymphs % Cancelled 06/22/17 08:09 Monocytes % (Manual) 4 % (0-10) 06/21/17 07:50 Eosinophils % (Manual) 1 % (0-4) 06/20/17 14:06 Basophils % (Manual) Cancelled 06/22/17 08:09 Metamyelocytes % Cancelled 06/22/17 08:09 Myelocytes % Cancelled 06/22/17 08:09 Promyelocytes % Cancelled 06/22/17 08:09 Blast Cells % Cancelled 06/22/17 08:09 Plasma Cell % (Manual) Cancelled 06/22/17 08:09 Nucleated RBC % Cancelled 06/22/17 08:09 Hypersegmented Polys Cancelled 06/22/17 08:09 Smudge Cells Cancelled 06/22/17 08:09 Toxic Granulation Cancelled 06/22/17 08:09 Dohle Bodies Cancelled 06/22/17 08:09 Dominique Rods Cancelled 06/22/17 08:09 Platelet Estimate Normal (NORMAL) 06/21/17 07:50 Plt Clumps, EDTA Cancelled 06/22/17 08:09 Large Platelets Present 06/21/17 07:50 Giant Platelets Present 06/21/17 07:50 RBC Morphology Normal 06/20/17 14:06 Polychromasia Cancelled 06/22/17 08:09 Hypochromasia (manual) Cancelled 06/22/17 08:09 Poikilocytosis (manual Slight 06/21/17 07:50 Basophilic Stippling Cancelled 06/22/17 08:09 Anisocytosis (manual) Slight 06/21/17 07:50 Microcytosis (manual) Cancelled 06/22/17 08:09 Macrocytosis (manual) Cancelled 06/22/17 08:09 Spherocytes Cancelled 06/22/17 08:09 Sickle Cells Cancelled 06/22/17 08:09 Target Cells Cancelled 06/22/17 08:09 Tear Drop Cells Cancelled 06/22/17 08:09 Ovalocytes Cancelled 06/22/17 08:09 Stomatocytes Cancelled 06/22/17 08:09 Helmet Cells Cancelled 06/22/17 08:09 [place] Bodies Cancelled 06/22/17 08:09 [place] Cells Cancelled 06/22/17 08:09 Acanthocytes (Spur) Cancelled 06/22/17 08:09 Rouleaux Cancelled 06/22/17 08:09 Schistocytes Cancelled 06/22/17 08:09 ESR 40 mm/hr (0-20) H 06/21/17 07:50 PT 13.4 SECONDS (9.7-12.2) H 06/20/17 14:06 INR 1.2 06/20/17 14:06 APTT 35 SECONDS (21-34) H 06/20/17 14:06 Sodium 135 mmol/L (132-148) 06/25/17 14:42 Potassium 4.1 mmol/L (3.6-5.2) 06/25/17 14:42 Chloride 100 mmol/L (98-107) 06/25/17 14:42 Carbon Dioxide 24 mmol/L (22-30) 06/25/17 14:42 Anion Gap 15 (10-20) 06/25/17 14:42 BUN 11 mg/dL (7-17) 06/25/17 14:42 Creatinine 0.8 mg/dL (0.7-1.2) 06/25/17 14:42 Est GFR ( Amer) > 60 06/25/17 14:42 Est GFR (Non-Af Amer) > 60 06/25/17 14:42 Random Glucose 113 mg/dL (65-105) H 06/25/17 14:42 Calcium 8.4 mg/dl (8.6-10.4) L 06/25/17 14:42 Ionized Calcium 5.4 mg/dL (4.80-5.60) 06/21/17 07:50 Phosphorus 2.8 mg/dL (2.5-4.5) 06/20/17 11:45 Magnesium 1.5 mg/dL (1.6-2.3) L 06/20/17 11:45 Total Bilirubin 0.5 mg/dL (0.2-1.3) 06/25/17 14:42 Direct Bilirubin 0.7 mg/dL (0.0-0.4) H 06/20/17 11:45 AST 46 U/L (14-36) H D 06/25/17 14:42 ALT 41 U/L (9-52) 06/25/17 14:42 Alkaline Phosphatase 65 U/L (38-126) 06/25/17 14:42 Total Protein 6.6 g/dL (6.3-8.3) 06/25/17 14:42 Albumin 3.7 g/dL (3.5-5.0) 06/25/17 14:42 Globulin 2.8 gm/dL (2.2-3.9) 06/25/17 14:42 Albumin/Globulin Ratio 1.3 (1.0-2.1) 06/25/17 14:42 Amylase 52 U/L (30-110) 06/20/17 11:45 Lipase 28 U/L (23-300) 06/20/17 11:45 Urine Color Yellow (YELLOW) 06/20/17 08:14 Urine Clarity Clear (Clear) 06/20/17 08:14 Urine pH 6.0 (5.0-8.0) 06/20/17 08:14 Ur Specific [place] 1.024 (1.003-1.030) 06/20/17 08:14 Urine Protein Negative mg/dL (NEGATIVE) 06/20/17 08:14 Urine Glucose (UA) Normal mg/dL (Normal) 06/20/17 08:14 Urine Ketones Trace mg/dL (NEGATIVE) 06/20/17 08:14 Urine Blood Negative (NEGATIVE) 06/20/17 08:14 Urine Nitrate Negative (NEGATIVE) 06/20/17 08:14 Urine Bilirubin Negative (NEGATIVE) 06/20/17 08:14 Urine Urobilinogen 4.0 mg/dL (0.2-1.0) H 06/20/17 08:14 Ur Leukocyte Esterase Trace Josie/uL (Negative) 06/20/17 08:14 Urine WBC (Auto) 1 /hpf (0-5) 06/20/17 08:14 Urine RBC (Auto) 1 /hpf (0-3) 06/20/17 08:14 Ur Squamous Epith Cells 4 /hpf (0-5) 06/20/17 08:14 C. difficile Ag & Toxin Negative (NEGATIVE) 06/21/17 Unknown - Hospital Course Hospital Course: Patient 67 y/o with hx of severe COPD still a smoker. She presented in ER with severe LLQ abd pain, nausea, vomiting. A CT scan of abd reveled a diverticulitis with no abscess or perforation. The patient id not able to tolerate any PO intake and still c/o severe pain. Stated in IV antibx, IV fluid , IV opioid , NPO. She developed a C. Diff and an exacerbation of COPD. Eventually her condition improved well today she was able to have a regular diet that she well tollerated with normal BM. Will DC home on antibx and steroid. Will follow in 3/4 days. Discharge Exam - Head Exam Head Exam: NORMOCEPHALIC - Eye Exam Eye Exam: Normal appearance - ENT Exam ENT Exam: Mucous Membranes Moist - Neck Exam Neck exam: Full Rom - Respiratory Exam Respiratory Exam: Clear to PA & Lateral - Cardiovascular Exam Cardiovascular Exam: REGULAR RHYTHM, +S1, +S2 - GI/Abdominal Exam GI & Abdominal Exam: Normal Bowel Sounds, Unremarkable - Extremities Exam Extremities exam: normal inspection - Neurological Exam Neurological exam: Alert, CN II-XII Intact, Normal Gait, Oriented x3 - Psychiatric Exam Psychiatric exam: Normal Affect - Skin Skin Exam: Normal Color Discharge Plan - Discharge Medications Prescriptions: Fluticasone/Salmeterol 250/50 [Advair Diskus 250/50] 1 puff INH RQ12 30 Days #1 puff Lactobacillus Acidophilus [Bacid Acidophilus] 1 cap PO BID 30 Days #60 cap Ciprofloxacin HCl [Cipro] 500 mg PO BID #7 tablet Metronidazole [Flagyl] 250 mg PO TID 7 Days #21 tablet Famotidine [Pepcid] 20 mg PO BID 30 Days #60 tab Tiotropium [place] Inhaler [Spiriva Inhalation Handihaler Device] 1 inhaler INH ONCE 30 Days #1 inhaler - Follow Up Plan Condition: STABLE Disposition: HOME/ ROUTINE Instructions: Ciprofloxacin (By mouth), Famotidine (By mouth), Metronidazole ( By mouth), Fluticasone/Salmeterol (By breathing), Tiotropium (By breathing), Probiotic (By mouth), Diverticulitis (DC) Referrals: Clinton Urrutia MD [Staff Provider] -
== END 2017-06-25 18:15 | disposition home or self-care (01) | DRG 372 ==
LOC: C.ER 07:22 → C.9E 09:47 → C.3T 10:49
PROVIDERS: ADMIT Internal Medicine; ATTEND Internal Medicine
DX: A04.72 Enterocolitis due to Clostridium difficile, not specified as recurrent (principal); K57.32 Diverticulitis of large intestine without perforation or abscess without bleeding; J44.0 Chronic obstructive pulmonary disease with (acute) lower respiratory infection; J44.1 Chronic obstructive pulmonary disease with (acute) exacerbation; F32.9 Major depressive disorder, single episode, unspecified; F17.210 Nicotine dependence, cigarettes, uncomplicated; F41.9 Anxiety disorder, unspecified; K57.30 Diverticulosis of large intestine without perforation or abscess without bleeding; E78.5 Hyperlipidemia, unspecified; J30.9 Allergic rhinitis, unspecified; J20.9 Acute bronchitis, unspecified

== ENCOUNTER 2017-07-07 12:42 | Inpatient (IN) | payer MEDICARE ==
[2017-07-07] MEDS ORDERED: Sodium Chloride 0.9% 1,000 ML IV ONE (13:56)
--- NOTE | 2017-07-07 13:56 | C.PDOC ---
Time Seen by Provider: 07/07/17 13:49 Chief Complaint (Nursing): Abdominal Pain Past Medical History Vital Signs: Last Vital Signs Temp 102.2 F H 07/07/17 13:20 Pulse 102 H 07/07/17 13:20 Resp 22 07/07/17 13:20 BP 100/68 07/07/17 13:20 Pulse Ox 98 07/07/17 13:20 - Medical History PMH: Anxiety, Bronchitis, COPD, Depression, Diverticulitis, Hypercholesterolemia Denies: Chronic Kidney Disease Surgical History: Appendectomy Family History: States: Unknown Family Hx - Social History Hx Alcohol Use: No Hx Substance Use: No - Immunization History Hx Tetanus Toxoid Vaccination: Yes Hx Influenza Vaccination: Yes Hx Pneumococcal Vaccination: No ED Course And Treatment O2 Sat by Pulse Oximetry: 98 Disposition - Disposition
[2017-07-07] MEDS ORDERED: Piperacillin/Tazobact 3.375 gm 100 ML IV STA (13:58)
--- NOTE | 2017-07-07 14:05 | C.PDOC ---
History Of Present Illness 67 y/o female presents to ED for evaluation of recurrent LLQ abdominal pain associated with fever of 102 today. Pt states that she was diagnosed with diverticulitis last week, was given IV antibiotics, and was discharged home with oral medication which she completed. Pt states that her pain gradually improved but developed bitter taste in her mouth yesterday and states her abdominal pain returned today associated with fever and chills. Otherwise, denies nausea, vomiting, changes in bowel habits, urinary symptoms, or any other associated symptoms at this time. Time Seen by Provider: 07/07/17 13:49 Chief Complaint (Nursing): Abdominal Pain History Per: Patient History/Exam Limitations: no limitations Onset/Duration Of Symptoms: Days Current Symptoms Are (Timing): Still Present Severity: Severe Location Of Pain/Discomfort: LLQ Radiation Of Pain To:: None Quality Of Discomfort: "Pain" Associated Symptoms: Fever. denies: Loss Of Appetite, Back Pain, Chest Pain, Constipation, Urinary Symptoms Exacerbating Factors: None Alleviating Factors: None Recent travel outside of the [place]: No Additional History Per: Patient Abnormal Vaginal Bleeding: No Past Medical History Reviewed: Historical Data, Nursing Documentation, Vital Signs Vital Signs: Last Vital Signs Temp 100 F H 07/07/17 18:57 Pulse 88 07/07/17 18:57 Resp 16 07/07/17 18:57 BP 90/54 L 07/07/17 18:57 Pulse Ox 95 07/07/17 18:57 - Medical History PMH: Anxiety, Bronchitis, COPD, Depression, Diverticulitis, Hypercholesterolemia Denies: Chronic Kidney Disease Surgical History: Appendectomy Family History: States: Unknown Family Hx - Social History Hx Alcohol Use: No Hx Substance Use: No - Immunization History Hx Tetanus Toxoid Vaccination: Yes Hx Influenza Vaccination: Yes Hx Pneumococcal Vaccination: No Review Of Systems Except As Marked, All Systems Reviewed And Found Negative. Constitutional: Positive for: Fever Gastrointestinal: Positive for: Abdominal Pain. Negative for: Nausea, Vomiting , Diarrhea, Constipation Genitourinary: Negative for: Dysuria, Frequency, Hematuria Musculoskeletal: Negative for: Back Pain Physical Exam - Physical Exam Appears: Non-toxic, No Acute Distress Skin: Normal Color, Warm, Dry Head: Atraumatic, Normacephalic Eye(s): bilateral: Normal Inspection Oral Mucosa: Moist Neck: Normal ROM, Supple Chest: Symmetrical Cardiovascular: Rhythm Regular, No Murmur Respiratory: Normal Breath Sounds, No Rales, No Rhonchi, No Wheezing Gastrointestinal/Abdominal: Bowel Sounds (normal), Soft, Tenderness (LLQ (+) referred pain), Guarding, No Rebound Back: No CVA Tenderness Extremity: Normal ROM Neurological/Psych: Oriented x3, Normal Speech ED Course And Treatment - Laboratory Results Result Diagrams: 07/07/17 14:09 07/07/17 14:53 Lab Interpretation: Abnormal (WBC 16.1 with left shift on differential, urine normal) O2 Sat by Pulse Oximetry: 98 Pulse Ox Interpretation: Normal - CT Scan/US CT Abdomen and pelvis Other Rad Studies (CT/US): Read By Radiologist, Radiology Report Reviewed CT/US Interpretation: Accession No. : [id number]. Patient Name / ID : GRECIA KATZ / [id number]. Exam Date : 06/20/2017 08:26:04 ( Approved ). Study Comment : Sex / Age : F / 67Y. Creator : Irene Nassar MD. Dictator : Irene Nassar MD. Intake Assessor : Utilization Review Rn : Irene Nassar MD. Approver2 : Report Date : 06/20/2017 09:25:33. My Comment : . PROCEDURE: CT Abdomen and Pelvis with contrast. HISTORY: Abdominal pain and diarrhea. COMPARISON: None. TECHNIQUE: CT scan of the abdomen and pelvis was performed after intravenous administration of contrast. Oral contrast was not administered. Coronal and sagittal reformatted images were obtained. Contrast dose: 100 mL Visipaque. Radiation dose: Total exam DLP = 256.33 mGy- cm. This CT exam was performed using one or more of the following dose reduction techniques: Automated exposure control, adjustment of the mA and/or kV according to patient size, and/or use of iterative reconstruction technique. FINDINGS: LOWER THORAX: The lung bases are clear. LIVER: The liver is normal in size and there is diffuse fatty infiltration. No gross lesion or ductal dilatation. GALLBLADDER AND BILE DUCTS: There are no calcified gallstones. PANCREAS: Normal in size with homogeneous enhancement. No gross lesion or ductal dilatation. SPLEEN: Normal in size and appearance. ADRENALS : No discrete nodule. KIDNEYS AND URETERS: Normal in size and there is homogeneous enhancement. No hydronephrosis. No solid mass. VASCULATURE: There are atherosclerotic aortoiliac calcifications and focal ectasia of the infrarenal aorta are with posterior lateral thrombus. No aortic aneurysm. BOWEL : The small bowel loops are normal in caliber. There is colonic diverticulosis , extensive in the left hemicolon. There is segmental moderate mural thickening of the distal descending and sigmoid colon with significant pericolonic inflammatory changes. No microperforation. APPENDIX: No inflammatory changes in the right lower quadrant. PERITONEUM: No free fluid. No free air. LYMPH NODES: No enlarged lymph nodes. BLADDER: Partially decompressed. REPRODUCTIVE: The uterus is normal in size. BONES: No acute fracture. Within normal limits for the patient's age. OTHER FINDINGS: None. IMPRESSION: 1. Findings are consistent with acute diverticulitis involving the long segment distal descending and sigmoid colon without micro perforation or abscess. 2. Fatty liver. Progress Note: Blood work, UA, Abd & Pelvis CT ordered and reviewed. Patient was given Zosyn, and IV fluids. - Physician Consult Information Time Consulting Physician Contacted: 15:20 Physician Contacted: Clinton Urrutia Outcome Of Conversation: He accepts patient on his service for admission Disposition - Disposition Disposition: HOSPITALIZED Disposition Time: 20:09 Condition: STABLE - Clinical Impression Clinical Impression: Acute diverticulitis - Scribe Statement The provider has reviewed the documentation as recorded by the Jaziel Goodrich All medical record entries made by the Jaziel were at my direction and personally dictated by me. I have reviewed the chart and agree that the record accurately reflects my personal performance of the history, physical exam, medical decision making, and the department course for this patient. I have also personally directed, reviewed, and agree with the discharge instructions and disposition.
[2017-07-07 14:17] LABS: BASO % 0.3 % (0.0-2.0); EOS # 0.1 K/uL (0.0-0.7); EOS % 0.5 % (0.0-4.0); HEMATOCRIT 44.8 % (34.0-47.0); LYMPH # 0.9 K/uL (1.0-4.3); LYMPH % 5.7 % (20.0-40.0); MEAN CELL VOLUME 90.4 fL (81.0-99.0); MEAN CORPUSCULAR HEMOGLOBIN 30.5 pg (27.0-31.0); MEAN CORPUSCULAR HGB CONC 33.7 g/dL (33.0-37.0); MEAN PLATELET VOLUME 10.8 fL (7.2-11.7); MONO % 6.5 % (0.0-10.0); NRBC % 0.1 % (0.0-2.0); PLATELET COUNT 366 K/uL (130-400); RED CELL DISTRIBUTION WIDTH 14.6 % (11.5-14.5); WHITE BLOOD COUNT 16.1 K/uL (4.8-10.8)
[2017-07-07 14:22] LABS: RBC URINE 1 /hpf (0-3); URINE BILIRUBIN NEGATIVE (NEGATIVE); URINE BLOOD NEGATIVE (NEGATIVE); URINE COLOR Yellow (YELLOW); URINE GLUCOSE (UA) NORMAL (Normal); URINE KETONE NEGATIVE (NEGATIVE); URINE LEUKOCYTE ESTERASE NEG Leu/uL (Negative); URINE PROTEIN NEGATIVE (NEGATIVE); URINE UROBILINOGEN NORMAL mg/dL (0.2-1.0); WBC URINE 1 /hpf (0-5)
[2017-07-07 14:40] LABS: NEUTROPHIL 79 % (50-75); TOTAL CELLS COUNTED 100
[2017-07-07 15:22] LABS: ALB/GLOB RATIO 1.2 (1.0-2.1); ALKALINE PHOSPHATASE 67 U/L (38-126); ALT/SGPT 27 U/L (9-52); AST/SGOT 31 U/L (14-36); BILIRUBIN,TOTAL 1.1 mg/dL (0.2-1.3); BLOOD UREA NITROGEN 14 mg/dL (7-17); CALCIUM 8.2 mg/dl (8.6-10.4); CARBON DIOXIDE 20 mmol/L (22-30); CHLORIDE 98 mmol/L (98-107); GFR AFRICAN-AMERICAN > 60; GLUCOSE,RANDOM 72 mg/dL (65-105); POTASSIUM 4.1 mmol/L (3.6-5.2); SODIUM 127 mmol/L (132-148)
--- NOTE | 2017-07-07 16:56 | CT ---
PROCEDURE: CT Abdomen and Pelvis with contrast HISTORY: abd pain COMPARISON: None. TECHNIQUE: Contrast dose: 100 mL Visipaque 320 Radiation dose: Total exam DLP = 284.86 mGy-cm. This CT exam was performed using one or more of the following dose reduction techniques: Automated exposure control, adjustment of the mA and/or kV according to patient size, and/or use of iterative reconstruction technique. FINDINGS: LOWER THORAX: Unremarkable. LIVER: Unremarkable. No gross lesion or ductal dilatation. GALLBLADDER AND BILE DUCTS: Unremarkable. PANCREAS: Unremarkable. No gross lesion or ductal dilatation. SPLEEN: Unremarkable. ADRENALS: Unremarkable. No mass. KIDNEYS AND URETERS: Unremarkable. No hydronephrosis. No solid mass. VASCULATURE: Unremarkable. No aortic aneurysm. BOWEL: There is diverticulitis of the sigmoid and distal descending colon with pericolonic stranding and extensive mural thickening indicative of probable chronic muscular hypertrophy associated with diverticular disease. In comparison to the prior examination, the degree of pericolonic inflammatory change is unchanged. There is no pericolonic abscess. There is no free air to suggest perforation. Please note that in the more proximal descending colon there is irregular circumferential mural thickening. There is also mural thickening seen throughout the majority of the transverse colon and in the hepatic flexure of the colon. These findings raise suspicion of a generalized colitis, possibly infectious or inflammatory. The mural thickening in the proximal descending colon is focal and irregular to the point where evaluation with colonoscopy is advised when clinically feasible to exclude colonic neoplasm. APPENDIX: Not identified. No secondary findings to suggest appendicitis. PERITONEUM: Unremarkable. No free fluid. No free air. LYMPH NODES: Unremarkable. No enlarged lymph nodes. BLADDER: Unremarkable. REPRODUCTIVE: Unremarkable uterus BONES: No acute fracture. OTHER FINDINGS: None. IMPRESSION: Acute diverticulitis of the distal descending and sigmoid colon without evidence of abscess. No significant change in the degree of pericolonic inflammatory change when compared to the prior examination of 06/20/2017. There is mural thickening of the colon elsewhere, in the proximal descending colon and throughout the transverse colon and hepatic flexure. This raises suspicion of a colitis, either infectious or inflammatory. Please note that due to the morphology of the mural thickening in the proximal descending colon, followup with colonoscopy is advised to exclude neoplasm, when clinically feasible.
[2017-07-07] MEDS ORDERED: Ciprofloxacin 400mg/200ml D5W 400 MG/200 ML BAG IVPB ONE (18:48)
[2017-07-07] MEDS: Ciprofloxacin 400mg/200ml D5W 400 MG/200 ML BAG IVPB SCH (18:57)
[2017-07-07] MEDS ORDERED: metroNIDAZOLE IV 500 mg/100 ml 500 MG/100 ML BAG ONE (20:22)
--- NOTE | 2017-07-07 21:03 | CP.PCM.HP ---
History of Present Illness - History of Present Illness History of Present Illness: 67 y/o female with hx of diverticulitis presents to ED for evaluation of recurrent LLQ abdominal pain associated with fever of 102 and chills. Pt was diagnosed with diverticulitis about 10 days ago, was given IV antibiotics, and was discharged home with oral medication which she completed recently. She failed to respond to oral antibx rx. Present on Admission - Present on Admission Any Indicators Present on Admission: No Review of Systems - Constitutional Constitutional: As Per HPI - Cardiovascular Cardiovascular: As Per HPI - Respiratory Respiratory: As Per HPI - Gastrointestinal Gastrointestinal: As Per HPI - Musculoskeletal Musculoskeletal: As Per HPI - Neurological Neurological: As Per HPI - Psychiatric Psychiatric: As Per HPI Past Patient History - Infectious Disease Hx of Infectious Diseases: None - Past Medical History & Family History Past Medical History?: Yes - Past Social History Smoking Status: Heavy Smoker > 10 Cigarettes Daily - CARDIAC Hx Hypercholesterolemia: Yes - PULMONARY Hx Bronchitis: Yes Hx Chronic Obstructive Pulmonary Disease (COPD): Yes - NEUROLOGICAL Hx Neurological Disorder: No - HEENT Hx HEENT Problems: No - RENAL Hx Chronic Kidney Disease: No - ENDOCRINE/METABOLIC Hx Endocrine Disorders: No - HEMATOLOGICAL/ONCOLOGICAL Hx Blood Disorders: No - INTEGUMENTARY Hx Dermatological Problems: No - MUSCULOSKELETAL/RHEUMATOLOGICAL Hx Musculoskeletal Disorders: No Hx Falls: No - GASTROINTESTINAL Hx Diverticulitis: Yes - GENITOURINARY/GYNECOLOGICAL Hx Genitourinary Disorders: No - PSYCHIATRIC Hx Anxiety: Yes Hx Depression: Yes Hx Substance Use: No - SURGICAL HISTORY Hx Appendectomy: Yes - ANESTHESIA Hx Anesthesia: Yes Hx Anesthesia Reactions: No Hx Malignant Hyperthermia: No Meds Allergies/Adverse Reactions: Allergies Allergy/AdvReac Type Severity Reaction Status Date / Time No Known Allergies Allergy Verified 07/07/17 13:17 Physical Exam - Constitutional Appears: In Acute Distress - Head Exam Head Exam: ATRAUMATIC, NORMAL INSPECTION, NORMOCEPHALIC - Eye Exam Eye Exam: Normal appearance - ENT Exam ENT Exam: Mucous Membranes Moist, Normal Exam - Neck Exam Neck exam: Positive for: Full Rom - Respiratory Exam Respiratory Exam: Clear to Auscultation Bilateral - Cardiovascular Exam Cardiovascular Exam: REGULAR RHYTHM, +S1, +S2 - GI/Abdominal Exam GI & Abdominal Exam: Rebound, Tenderness - Neurological Exam Neurological exam: Alert, CN II-XII Intact, Oriented x3 - Psychiatric Exam Psychiatric exam: Normal Affect - Skin Skin Exam: Normal Color Results - Vital Signs Recent Vital Signs: Last Vital Signs Temp 102.7 F H 07/07/17 20:25 Pulse 85 07/07/17 20:25 Resp 18 07/07/17 20:25 BP 92/59 L 07/07/17 20:25 Pulse Ox 98 07/07/17 20:25 - Labs Result Diagrams: 07/07/17 14:09 07/07/17 14:53 Labs: Laboratory Results - last 24 hr 07/07/17 07/07/17 07/07/17 14:09 14:09 14:53 WBC 16.1 H RBC 4.95 Hgb 15.1 Hct 44.8 MCV 90.4 MCH 30.5 MCHC 33.7 RDW 14.6 H Plt Count 366 MPV 10.8 Neut % (Auto) 87.0 H Lymph % (Auto) 5.7 L [place] % (Auto) 6.5 Eos % (Auto) 0.5 Baso % (Auto) 0.3 Neut # 14.0 H Lymph # 0.9 L [place] # 1.0 H Eos # 0.1 Baso # 0.0 Neutrophils % (Manual) 79 H Lymphocytes % (Manual) 12 L Monocytes % (Manual) 9 Platelet Estimate Normal RBC Morphology Normal Sodium 127 L Potassium 4.1 Chloride 98 Carbon Dioxide 20 L Anion Gap 13 BUN 14 Creatinine 0.8 Est GFR ( Amer) > 60 Est GFR (Non-Af Amer) > 60 Random Glucose 72 Calcium 8.2 L Total Bilirubin 1.1 AST 31 ALT 27 Alkaline Phosphatase 67 Total Protein 7.0 Albumin 3.8 Globulin 3.2 Albumin/Globulin Ratio 1.2 Urine Color Yellow Urine Clarity Clear Urine pH 6.0 Ur Specific [place] 1.019 Urine Protein Negative Urine Glucose (UA) Normal Urine Ketones Negative Urine Blood Negative Urine Nitrate Negative Urine Bilirubin Negative Urine Urobilinogen Normal Ur Leukocyte Esterase Neg Urine WBC (Auto) 1 Urine RBC (Auto) 1 Ur Squamous Epith Cells 1 Assessment & Plan (1) Acute diverticulitis Status: Acute (2) Abdominal pain Status: Acute (3) Anxiety and depression Status: Chronic (4) Leukocytosis Status: Acute - Assessment and Plan (Free Text) Plan: As per orders.
[2017-07-07] MEDS: metroNIDAZOLE IV 500 mg/100 ml 500 MG/100 ML BAG IVPB SCH (22:30)
[2017-07-07] MEDS ORDERED: Enoxaparin 40 mg Syringe ONE (23:48)
[2017-07-08] MEDS: metroNIDAZOLE IV 500 mg/100 ml 500 MG/100 ML BAG IVPB SCH ×3 (06:15→21:30)
[2017-07-08] MEDS ORDERED: Dextrose 5%/0.9% NS 1,000 ML IV SCH ×2 (07:15→14:15)
[2017-07-08 07:54] LABS: BASO # 0.1 K/uL (0.0-0.2); BASO % 0.4 % (0.0-2.0); EOS # 0.1 K/uL (0.0-0.7); LYMPH # 0.9 K/uL (1.0-4.3); MONO % 7.4 % (0.0-10.0); RED CELL DISTRIBUTION WIDTH 14.5 % (11.5-14.5)
[2017-07-08 08:01] LABS: EOS % 0.4 % (0.0-4.0); HEMATOCRIT 36.1 % (34.0-47.0); MEAN CELL VOLUME 90.1 fL (81.0-99.0); MEAN CORPUSCULAR HEMOGLOBIN 30.6 pg (27.0-31.0); MEAN CORPUSCULAR HGB CONC 33.9 g/dL (33.0-37.0); MEAN PLATELET VOLUME 10.5 fL (7.2-11.7); MONO # 1.7 K/uL (0.0-0.8); PLATELET COUNT 271 K/uL (130-400); WHITE BLOOD COUNT 23.6 K/uL (4.8-10.8)
[2017-07-08 08:06] LABS: AMYLASE 72 U/L (30-110); BLOOD UREA NITROGEN 8 mg/dL (7-17); CARBON DIOXIDE 22 mmol/L (22-30); CHLORIDE 104 mmol/L (98-107); GFR AFRICAN-AMERICAN > 60; GLUCOSE,RANDOM 93 mg/dL (65-105); POTASSIUM 3.6 mmol/L (3.6-5.2); SODIUM 130 mmol/L (132-148)
--- NOTE | 2017-07-08 08:19 | RAD ---
PROCEDURE: CHEST RADIOGRAPH, 1 VIEW HISTORY: COPD COMPARISON: 06/21/2017 FINDINGS: LUNGS: Clear. PLEURA: No pneumothorax or pleural fluid seen. CARDIOVASCULAR: Normal. OSSEOUS STRUCTURES: No significant abnormalities. VISUALIZED UPPER ABDOMEN: Normal. OTHER FINDINGS: None. IMPRESSION: No active disease.
[2017-07-08] MEDS: Ciprofloxacin 400mg/200ml D5W 400 MG/200 ML BAG IVPB SCH ×2 (08:36→19:01)
[2017-07-08] MEDS: Enoxaparin 40 mg Syringe SC SCH (08:37)
[2017-07-08 08:44] LABS: EOSINOPHIL 1 % (0-4); NEUTROPHIL 94 % (50-75); TOTAL CELLS COUNTED 100
--- NOTE | 2017-07-08 09:48 | CP.PCM.CON ---
History of Present Illness - History of Present Illness History of Present Illness: ASked to see pt for diverticulitis. Pt was in 2 weeks ago for diverticulitis and c difficile. Was on "antibiotics" until 3 days ago- she does not know name-. Then has 1-2 days of LLQ pain- sharp and severe, fever, and diarrhea. present Review of Systems - Constitutional Constitutional: Weight Loss, Weakness - EENT Eyes: absent: Photophobia - Cardiovascular Cardiovascular: absent: Chest Pain, Dyspnea - Respiratory Respiratory: absent: Hemoptysis, Wheezing - Gastrointestinal Gastrointestinal: Abdominal Pain, Diarrhea. absent: Dysphagia, Hematemesis, Hematochezia, Melena, Vomiting - Musculoskeletal Musculoskeletal: absent: Muscle Cramps - Integumentary Integumentary: absent: Erythema, Jaundice - Neurological Neurological: absent: Convulsions Past Patient History - Infectious Disease Hx of Infectious Diseases: None - Past Medical History & Family History Past Medical History?: Yes - Past Social History Smoking Status: Former Smoker - CARDIAC Hx Cardiac Disorders: Yes Hx Hypercholesterolemia: Yes - PULMONARY Hx Bronchitis: Yes Hx Chronic Obstructive Pulmonary Disease (COPD): Yes - NEUROLOGICAL Hx Neurological Disorder: No - HEENT Hx HEENT Problems: No - RENAL Hx Chronic Kidney Disease: No - ENDOCRINE/METABOLIC Hx Endocrine Disorders: No - HEMATOLOGICAL/ONCOLOGICAL Hx Blood Disorders: No - INTEGUMENTARY Hx Dermatological Problems: No - MUSCULOSKELETAL/RHEUMATOLOGICAL Hx Musculoskeletal Disorders: No Hx Falls: No - GASTROINTESTINAL Hx Gastrointestinal Disorders: Yes Hx Diverticulitis: Yes - GENITOURINARY/GYNECOLOGICAL Hx Genitourinary Disorders: No - PSYCHIATRIC Hx Psychophysiologic Disorder: Yes Hx Anxiety: Yes Hx Depression: No Hx Substance Use: No - SURGICAL HISTORY Hx Surgeries: Yes Hx Appendectomy: Yes - ANESTHESIA Hx Anesthesia: Yes Hx Anesthesia Reactions: No Hx Malignant Hyperthermia: No Meds Allergies/Adverse Reactions: Allergies Allergy/AdvReac Type Severity Reaction Status Date / Time No Known Allergies Allergy Verified 07/07/17 13:17 - Medications Medications: Current Medications Enoxaparin Sodium (Lovenox) 40 mg SC DAILY [facility] Last Admin: 07/08/17 08:37 Dose: 40 mg Ciprofloxacin (Cipro 400mg/200ml Dsw) 400 mg in 200 mls @ 133 mls/hr IVPB Q12H [facility] Last Admin: 07/08/17 08:36 Dose: 133 mls/hr Metronidazole (Flagyl) 500 mg in 100 mls @ 100 mls/hr IVPB Q8 [facility] Last Admin: 07/08/17 06:15 Dose: 100 mls/hr Dextrose/Sodium Chloride (Dextrose 5%/0.9% Ns 1000 Ml) 1,000 mls @ 85 mls/hr IV .[id number] [facility] Vancomycin HCl (Vancocin (Oral Or Rectal Use)) 125 mg PO QID [facility] Physical Exam - Constitutional Appears: Non-toxic - Neck Exam Neck exam: Negative for: Tenderness - Respiratory Exam Respiratory Exam: Clear to Auscultation Bilateral - Cardiovascular Exam Cardiovascular Exam: RRR - GI/Abdominal Exam GI & Abdominal Exam: Guarding, Normal Bowel Sounds, Soft, Tenderness. absent: Distended, Mass, Rebound, Rigid - Extremities Exam Extremities exam: Negative for: calf tenderness - Neurological Exam Neurological exam: Alert, Oriented x3 Results - Vital Signs Recent Vital Signs: Last Vital Signs Temp 99.0 F 07/08/17 08:38 Pulse 86 07/08/17 08:38 Resp 18 07/08/17 08:38 BP 121/73 07/08/17 08:38 Pulse Ox 98 07/08/17 08:38 - Labs Result Diagrams: 07/08/17 07:49 07/08/17 07:49 Labs: Laboratory Results - last 24 hr 07/07/17 07/07/17 07/07/17 14:09 14:09 14:53 WBC 16.1 H RBC 4.95 Hgb 15.1 Hct 44.8 MCV 90.4 MCH 30.5 MCHC 33.7 RDW 14.6 H Plt Count 366 MPV 10.8 Neut % (Auto) 87.0 H Lymph % (Auto) 5.7 L [place] % (Auto) 6.5 Eos % (Auto) 0.5 Baso % (Auto) 0.3 Neut # 14.0 H Lymph # 0.9 L [place] # 1.0 H Eos # 0.1 Baso # 0.0 Neutrophils % (Manual) 79 H Lymphocytes % (Manual) 12 L Monocytes % (Manual) 9 Eosinophils % (Manual) Platelet Estimate Normal RBC Morphology Normal Sodium 127 L Potassium 4.1 Chloride 98 Carbon Dioxide 20 L Anion Gap 13 BUN 14 Creatinine 0.8 Est GFR ( Amer) > 60 Est GFR (Non-Af Amer) > 60 Random Glucose 72 Calcium 8.2 L Total Bilirubin 1.1 AST 31 ALT 27 Alkaline Phosphatase 67 Total Protein 7.0 Albumin 3.8 Globulin 3.2 Albumin/Globulin Ratio 1.2 Amylase Lipase Carcinoembryonic Ag Urine Color Yellow Urine Clarity Clear Urine pH 6.0 Ur Specific [place] 1.019 Urine Protein Negative Urine Glucose (UA) Normal Urine Ketones Negative Urine Blood Negative Urine Nitrate Negative Urine Bilirubin Negative Urine Urobilinogen Normal Ur Leukocyte Esterase Neg Urine WBC (Auto) 1 Urine RBC (Auto) 1 Ur Squamous Epith Cells 1 07/07/17 07/08/17 07/08/17 20:13 07:49 07:49 WBC 23.6 H RBC 4.00 Hgb 12.2 D Hct 36.1 MCV 90.1 MCH 30.6 MCHC 33.9 RDW 14.5 Plt Count 271 MPV 10.5 Neut % (Auto) 87.8 H Lymph % (Auto) 4.0 L [place] % (Auto) 7.4 Eos % (Auto) 0.4 Baso % (Auto) 0.4 Neut # 20.7 H Lymph # 0.9 L [place] # 1.7 H Eos # 0.1 Baso # 0.1 Neutrophils % (Manual) 94 H Lymphocytes % (Manual) 2 L Monocytes % (Manual) 3 Eosinophils % (Manual) 1 Platelet Estimate Normal RBC Morphology Normal Sodium 130 L Potassium 3.6 Chloride 104 Carbon Dioxide 22 Anion Gap 8 L BUN 8 Creatinine 0.8 Est GFR ( Amer) > 60 Est GFR (Non-Af Amer) > 60 Random Glucose 93 Calcium 8.0 L Total Bilirubin AST ALT Alkaline Phosphatase Total Protein Albumin Globulin Albumin/Globulin Ratio Amylase 72 Lipase 30 Carcinoembryonic Ag 2.5 Urine Color Urine Clarity Urine pH Ur Specific [place] Urine Protein Urine Glucose (UA) Urine Ketones Urine Blood Urine Nitrate Urine Bilirubin Urine Urobilinogen Ur Leukocyte Esterase Urine WBC (Auto) Urine RBC (Auto) Ur Squamous Epith Cells Assessment & Plan (1) Acute diverticulitis Status: Acute (2) Abdominal pain Assessment and Plan: Consider diverticultiis or c difficile. Symptoms got worse after stopped antibiotics. REC- antibiotics- on cipro and flagyl ADD po VANCO Check CBC Consider surgery consult Status: Acute (3) C. difficile colitis Status: Acute (4) Leukocytosis Status: Acute (5) COPD (chronic obstructive pulmonary disease) Status: Chronic
[2017-07-08] MEDS: Vancomycin 125 MG/5 ML SOLN (ORAL/RECTAL) PO SCH ×4 (10:34→21:30)
--- NOTE | 2017-07-08 17:09 | PCM.RRT ---
SYNCHRONIZER Nurses Assessment - Situation Date: 07/08/17 Time SYNCHRONIZER was called: 15:45 SYNCHRONIZER Responder Arrival Time:: 15:45 SYNCHRONIZER Location:: Med/Oncology Room Number: 369b SYNCHRONIZER Reason for Call: Hypotension SYNCHRONIZER Called By: RN - IV IV Inserted during SYNCHRONIZER?: No IV Fluids Initiated During SYNCHRONIZER?: .9ns 1 liter bolus - Respiratory SYNCHRONIZER Delivery Method: Nasal Cannula @L/min Oxygen Flow Rate: 2 Received Nebulizer Treatments: No Was the Patient Ventilated with Bag/Mask 100% O2?: No Secretions Suctioned?: No Was the Patient Intubated?: No Was the Patient Placed on a Ventilator?: No - Medication Medications Administered During SYNCHRONIZER: none - Diagnostic Test Ordered EKG: No Chest X-Ray: No CT Scan: No - Stat Labs Ordered SYNCHRONIZER Stat Labs Ordered: CBC, BMP CPR started during SYNCHRONIZER?: No - Vital Signs Vital Signs: Rapid Response Vital Sign Blood Pressure 75/43 Pulse Rate 73 Respiratory Rate 20 Temperature 98.2 F Oxygen Saturation 96 - [place] Coma Scale Coma Scale Eye Opening: Spontaneous Coma Scale Motor: Obeys Commands Movement Coma Scale Verbal: Oriented Coma Scale Total: 15 - Sepsis Screen Part 1 Sepsis Screen Part 1: Hypotensive - Sepsis Screen Part 2 Sepsis Screen Part 2: WBC over 12,000 - Time SYNCHRONIZER Ended Time SYNCHRONIZER Ended: 15:55 - Vital Signs at end of SYNCHRONIZER Vital Signs at end of SYNCHRONIZER: Rapid Response End Vital Sign Blood Pressure 86/55 Pulse Rate 75 Respiratory Rate 20 Temperature 98.3 F O2 Sat by Pulse Oximetry 96 - Recommendations Notifications: Attending Physician, Consultations, Family or Designated Caregiver I.Reason for SYNCHRONIZER - A) Acute Change in Patient: (Select all that apply): Staff member or family is worried about patient - Respiratory Oxygen Delivery Method: Nasal Cannula @L/min Oxygen Flow Rate: 2 - Head Head Exam: NORMAL INSPECTION - Eyes Eye Exam: EOMI, Normal appearance - Respiratory Exam Respiratory Exam: Decreased Breath Sounds, Clear to Ausculation Bilateral, NORMAL BREATHING PATTERN - Cardiovascular Exam Cardiovascular Exam: REGULAR RHYTHM, +S1, +S2 - GI/Abdominal Exam GI & Abdominal Exam: Soft, Normal Bowel Sounds - Neurological Exam Neurological Exam: Alert, Awake - Extremities Exam Extremities Exam: Full ROM Plan - Assessment of Findings&Treatment Plan 1 liter boluses times two monitor vitals
[2017-07-08] MEDS ORDERED: Sodium Chloride 0.9% 1,000 ML IV SCH (17:15)
[2017-07-08 17:59] LABS: BASO # 0.1 K/uL (0.0-0.2); BASO % 0.5 % (0.0-2.0); EOS # 0.3 K/uL (0.0-0.7); EOS % 1.6 % (0.0-4.0); HEMATOCRIT 35.3 % (34.0-47.0); LYMPH # 1.3 K/uL (1.0-4.3); LYMPH % 7.1 % (20.0-40.0); MEAN CELL VOLUME 91.3 fL (81.0-99.0); MEAN CORPUSCULAR HEMOGLOBIN 29.9 pg (27.0-31.0); MEAN CORPUSCULAR HGB CONC 32.7 g/dL (33.0-37.0); MEAN PLATELET VOLUME 10.1 fL (7.2-11.7); MONO % 5.2 % (0.0-10.0); PLATELET COUNT 259 K/uL (130-400); RED CELL DISTRIBUTION WIDTH 14.6 % (11.5-14.5)
[2017-07-08 18:24] LABS: CALCIUM 7.4 mg/dl (8.6-10.4); CARBON DIOXIDE 20 mmol/L (22-30); CHLORIDE 107 mmol/L (98-107); GFR AFRICAN-AMERICAN > 60; GLUCOSE,RANDOM 137 mg/dL (65-105); SODIUM 137 mmol/L (132-148)
[2017-07-08 18:42] LABS: EOSINOPHIL 4 % (0-4); NEUTROPHIL 83 % (50-75); TOTAL CELLS COUNTED 100
[2017-07-08 19:17] LABS: BLOOD UREA NITROGEN 5 mg/dL (7-17)
--- NOTE | 2017-07-08 19:34 | CP.PCM.CON ---
<Jamin Gaytan - Last Filed: 07/08/17 19:30> History of Present Illness - History of Present Illness History of Present Illness: PGY1 ICU Consult for Dr. Laurent Reason for ICU consult: Hypotension not corrected by fluids Patient is a 67 year old female with a past medical history with of COPD, Bronchitis, Hypercholesterolemia, diverticulitis, anxiety and depression was admitted to the hospital yesterday wit abdominal pain. Patient was recently diagnosed with diverticulitis last week and was given IV antibiotics and discharged on oral medications. Patient had a DIRECTOR MANUFACTURING ENGINEERING called on her today due to hypotension not corrected with two liters of NS bolus. Patient was transferred to ICU for further evaluation and monitoring. Upon exam, patient states she is feeling much better. She still is experiencing some mild LLQ abdominal pain but denies nausea, vomiting, fevers, chills, light headedness or dizziness. Review of Systems - Review of Systems All systems: reviewed and no additional remarkable complaints except (as per HPI ) Past Patient History - Infectious Disease Hx of Infectious Diseases: None - Past Medical History & Family History Past Medical History?: Yes - Past Social History Smoking Status: Former Smoker - CARDIAC Hx Cardiac Disorders: Yes Hx Hypercholesterolemia: Yes - PULMONARY Hx Bronchitis: Yes Hx Chronic Obstructive Pulmonary Disease (COPD): Yes - NEUROLOGICAL Hx Neurological Disorder: No - HEENT Hx HEENT Problems: No - RENAL Hx Chronic Kidney Disease: No - ENDOCRINE/METABOLIC Hx Endocrine Disorders: No - HEMATOLOGICAL/ONCOLOGICAL Hx Blood Disorders: No - INTEGUMENTARY Hx Dermatological Problems: No - MUSCULOSKELETAL/RHEUMATOLOGICAL Hx Musculoskeletal Disorders: No Hx Falls: No - GASTROINTESTINAL Hx Gastrointestinal Disorders: Yes Hx Diverticulitis: Yes - GENITOURINARY/GYNECOLOGICAL Hx Genitourinary Disorders: No - PSYCHIATRIC Hx Psychophysiologic Disorder: Yes Hx Anxiety: Yes Hx Depression: No Hx Substance Use: No - SURGICAL HISTORY Hx Surgeries: Yes Hx Appendectomy: Yes - ANESTHESIA Hx Anesthesia: Yes Hx Anesthesia Reactions: No Hx Malignant Hyperthermia: No Meds Allergies/Adverse Reactions: Allergies Allergy/AdvReac Type Severity Reaction Status Date / Time No Known Allergies Allergy Verified 07/07/17 13:17 - Medications Medications: Current Medications Enoxaparin Sodium (Lovenox) 40 mg SC DAILY [facility] Last Admin: 07/08/17 08:37 Dose: 40 mg Hydrocortisone Sodium Succinate (Solu-Cortef) 100 mg IV Q8H [facility] Last Admin: 07/08/17 19:02 Dose: 100 mg Ciprofloxacin (Cipro 400mg/200ml Dsw) 400 mg in 200 mls @ 133 mls/hr IVPB Q12H [facility] Last Admin: 07/08/17 19:01 Dose: 133 mls/hr Metronidazole (Flagyl) 500 mg in 100 mls @ 100 mls/hr IVPB Q8 [facility] Last Admin: 07/08/17 14:25 Dose: 100 mls/hr Sodium Chloride (Sodium Chloride 0.9%) 1,000 mls @ 100 mls/hr IV .Q10H [facility] Last Admin: 07/08/17 18:14 Dose: 100 mls/hr Nicotine (Nicoderm Cq) 1 patch TD DAILY [facility] Last Admin: 07/08/17 11:14 Dose: 1 patch Vancomycin HCl (Vancocin (Oral Or Rectal Use)) 125 mg PO QID [facility] Last Admin: 07/08/17 18:37 Dose: 125 mg Physical Exam - Constitutional Appears: Well, Non-toxic, No Acute Distress - Head Exam Head Exam: ATRAUMATIC, NORMOCEPHALIC - Eye Exam Eye Exam: EOMI, Normal appearance - ENT Exam ENT Exam: Mucous Membranes Moist - Neck Exam Neck exam: Positive for: Full Rom - Respiratory Exam Respiratory Exam: Clear to Auscultation Bilateral, NORMAL BREATHING PATTERN. absent: Accessory Muscle Use, Rales, Rhonchi, Wheezes, Respiratory Distress - Cardiovascular Exam Cardiovascular Exam: REGULAR RHYTHM, +S1, +S2 - GI/Abdominal Exam GI & Abdominal Exam: Normal Bowel Sounds, Soft, Tenderness (LLQ). absent: Distended, Firm, Guarding, Rigid - Extremities Exam Extremities exam: Positive for: pedal pulses present. Negative for: calf tenderness, pedal edema - Neurological Exam Neurological exam: Alert, Oriented x3 - Psychiatric Exam Psychiatric exam: Normal Affect, Normal Mood - Skin Skin Exam: Dry, Normal Color, Warm Results - Vital Signs Recent Vital Signs: Last Vital Signs Temp 98.8 F 07/08/17 15:00 Pulse 73 07/08/17 15:00 Resp 20 07/08/17 15:00 BP 88/53 L 07/08/17 15:00 Pulse Ox 96 07/08/17 15:00 - Labs Result Diagrams: 07/08/17 17:51 07/08/17 17:51 Labs: Laboratory Results - last 24 hr 07/07/17 07/08/17 07/08/17 20:13 07:49 07:49 WBC 23.6 H RBC 4.00 Hgb 12.2 D Hct 36.1 MCV 90.1 MCH 30.6 MCHC 33.9 RDW 14.5 Plt Count 271 MPV 10.5 Neut % (Auto) 87.8 H Lymph % (Auto) 4.0 L [place] % (Auto) 7.4 Eos % (Auto) 0.4 Baso % (Auto) 0.4 Neut # 20.7 H Lymph # 0.9 L [place] # 1.7 H Eos # 0.1 Baso # 0.1 Neutrophils % (Manual) 94 H Lymphocytes % (Manual) 2 L Monocytes % (Manual) 3 Eosinophils % (Manual) 1 Platelet Estimate Normal RBC Morphology Normal Sodium 130 L Potassium 3.6 Chloride 104 Carbon Dioxide 22 Anion Gap 8 L BUN 8 Creatinine 0.8 Est GFR ( Amer) > 60 Est GFR (Non-Af Amer) > 60 POC Glucose (mg/dL) Random Glucose 93 Calcium 8.0 L Amylase 72 Lipase 30 Carcinoembryonic Ag 2.5 Stool Leukocytes, Qual C. difficile Ag & Toxin 07/08/17 07/08/17 07/08/17 13:14 14:30 15:50 WBC RBC Hgb Hct MCV MCH MCHC RDW Plt Count MPV Neut % (Auto) Lymph % (Auto) [place] % (Auto) Eos % (Auto) Baso % (Auto) Neut # Lymph # [place] # Eos # Baso # Neutrophils % (Manual) Lymphocytes % (Manual) Monocytes % (Manual) Eosinophils % (Manual) Platelet Estimate RBC Morphology Sodium Potassium Chloride Carbon Dioxide Anion Gap BUN Creatinine Est GFR ( Amer) Est GFR (Non-Af Amer) POC Glucose (mg/dL) 183 H Random Glucose Calcium Amylase Lipase Carcinoembryonic Ag Stool Leukocytes, Qual Positive H C. difficile Ag & Toxin Negative 07/08/17 07/08/17 17:51 17:51 WBC 19.0 H RBC 3.86 Hgb 11.5 Hct 35.3 MCV 91.3 MCH 29.9 MCHC 32.7 L RDW 14.6 H Plt Count 259 MPV 10.1 Neut % (Auto) 85.6 H Lymph % (Auto) 7.1 L [place] % (Auto) 5.2 Eos % (Auto) 1.6 Baso % (Auto) 0.5 Neut # 16.3 H Lymph # 1.3 [place] # 1.0 H Eos # 0.3 Baso # 0.1 Neutrophils % (Manual) 83 H Lymphocytes % (Manual) 8 L Monocytes % (Manual) 5 Eosinophils % (Manual) 4 Platelet Estimate Normal RBC Morphology Normal Sodium 137 Potassium 3.4 L Chloride 107 Carbon Dioxide 20 L Anion Gap 14 BUN 5 L Creatinine 0.7 Est GFR ( Amer) > 60 Est GFR (Non-Af Amer) > 60 POC Glucose (mg/dL) Random Glucose 137 H Calcium 7.4 L Amylase Lipase Carcinoembryonic Ag Stool Leukocytes, Qual C. difficile Ag & Toxin Assessment & Plan - Assessment and Plan (Free Text) Assessment: Patient is a 67 year old female with acute diverticulitis that experienced an episode of hypotension refractory to two liter bolus of NS. Plan: Dr. Urrutia Primary GI GI - Dr. Samson consulted, help appreciated ID - Dr. Mena consulted, help appreciated Acute Diverticulitis Cipro 400mg IVPB q12h Flagyl 500mg IVPB q8h Vanco 125mg PO QID Hydrocortisone 100mg IV q8h NS @ 100mL/hr Prophylactic Care Lovenox 40mg SC daily Case discussed with Dr. Mehran Gaytan PGY1 <Johnson Laurent - Last Filed: 07/16/17 00:54> Results - Vital Signs Recent Vital Signs: Last Vital Signs Temp 98.8 F 07/13/17 09:00 Pulse 82 07/13/17 09:00 Resp 15 07/13/17 09:00 BP 122/72 07/13/17 09:00 Pulse Ox 96 07/12/17 20:00 - Labs Result Diagrams: 07/12/17 06:03 07/12/17 06:03 Attending/Attestation - Attestation I have personally seen and examined this patient.: Yes I have fully participated in the care of the patient.: Yes I have reviewed all pertinent clinical information: Yes Notes (Text): The Patient was seen and examined at the bedside, Medical records reviewed, and management issues were discussed and formulated with the house staff. I have reviewed all the relevant clinical, laboratory, hemodynamic, radiographic data and medications Events reviewed Pain issues, skin care, head of the bed elevation, glycemic control were addressed. Agree with above resident's assessment and treatment plans of care as transcribed in Dr. Gaytan note.
--- NOTE | 2017-07-08 19:48 | CP.PCM.PN ---
Subjective - Date & Time of Evaluation Date of Evaluation: 07/08/17 Time of Evaluation: 19:54 - Subjective Subjective: Patient was seen at bed side. She still hypotensive, week and blurry vision. The hypotension was persistent with poor response to IVF. She was transferred to ICU for further evaluation and rx. Objective - Vital Signs/Intake and Output Vital Signs (last 24 hours): Temp Pulse Resp BP Pulse Ox 98.8 F 73 20 88/53 L 96 07/08/17 15:00 07/08/17 15:00 07/08/17 15:00 07/08/17 15:00 07/08/17 15:00 - Medications Medications: Current Medications Enoxaparin Sodium (Lovenox) 40 mg SC DAILY [facility] Last Admin: 07/08/17 08:37 Dose: 40 mg Hydrocortisone Sodium Succinate (Solu-Cortef) 100 mg IV Q8H [facility] Last Admin: 07/08/17 19:02 Dose: 100 mg Ciprofloxacin (Cipro 400mg/200ml Dsw) 400 mg in 200 mls @ 133 mls/hr IVPB Q12H [facility] Last Admin: 07/08/17 19:01 Dose: 133 mls/hr Metronidazole (Flagyl) 500 mg in 100 mls @ 100 mls/hr IVPB Q8 [facility] Last Admin: 07/08/17 14:25 Dose: 100 mls/hr Sodium Chloride (Sodium Chloride 0.9%) 1,000 mls @ 100 mls/hr IV .Q10H [facility] Last Admin: 07/08/17 18:14 Dose: 100 mls/hr Nicotine (Nicoderm Cq) 1 patch TD DAILY [facility] Last Admin: 07/08/17 11:14 Dose: 1 patch Vancomycin HCl (Vancocin (Oral Or Rectal Use)) 125 mg PO QID [facility] Last Admin: 07/08/17 18:37 Dose: 125 mg - Labs Labs: 07/08/17 17:51 07/08/17 17:51 - Constitutional Appears: Toxic, Chronically Ill - Head Exam Head Exam: ATRAUMATIC, NORMAL INSPECTION, NORMOCEPHALIC - Eye Exam Eye Exam: Normal appearance - ENT Exam ENT Exam: Mucous Membranes Dry, Normal External Ear Exam - Neck Exam Neck Exam: Full ROM - Respiratory Exam Respiratory Exam: Clear to Ausculation Bilateral, NORMAL BREATHING PATTERN - Cardiovascular Exam Cardiovascular Exam: REGULAR RHYTHM, +S1, +S2 - GI/Abdominal Exam GI & Abdominal Exam: Tenderness - Neurological Exam Neurological Exam: Alert, Awake, CN II-XII Intact - Psychiatric Exam Psychiatric exam: Anxious - Skin Skin Exam: Pallor Assessment and Plan (1) Acute diverticulitis Status: Acute (2) Abdominal pain Status: Acute (3) Anxiety and depression Status: Chronic (4) Leukocytosis Status: Acute - Assessment and Plan (Free Text) Plan: Possible septic shock, will replace steroid for possible adrenal insufficiency, monitor H/H, culture. Continue hydration and antibx rx. Condition guarded. Case discussed with ICU attending and condition explained to the family present at bed side.
--- NOTE | 2017-07-08 19:56 | CP.PCM.CON ---
History of Present Illness - History of Present Illness History of Present Illness: INFECTIOUS DISEASE CONSULTATION PERFECTO AKBAR MD, FACP ICU #4 07/08/2017 CHART REVIEWED PT EXAMINED CASE DISCUSSED CLINICALLY FEELING BETTER AFTER IV FLUIDS, OVER 2 LITERS QUESTION OF RECURRENT ABD DISCOMFORT & DIARRHEA ALSO QUESTION TO HOME MEDS AND LENGTH OF TREATMENT PT IS A POOR HIST[place]INA AND COMPLIANCE AND ADHERENCE IS AN ISSUE NOT VERY HELPFUL TO HER SYMPTOMS AND OR SITUATION REVIEWED HER OLD RECORDS C. DIFF NOTED PREVIOUSLY PRESENTLY TO CHECK HER LABS PMHX: COPD/BRONCHITIS ANXIETY/DEPRESSION DYSLIPIDEMIA POOR HISTORIAN STILL SMOKES AND DRINKS DIET MODIFICATION IN [place] NO ALLERGIES +TOBACCO +ETOH IN [place] FAMILY HX IN [place] POSITIVE TELEPHONE SIGN-JUST TALKING AWAY. VSS MARKEDLY LESS ABD PAIN AT PRESENT DEHYDRATION 2ND DIARRHEA R/O RECURRENT C. DIFF R/O DIVERTICULITIS RECHECK CT RECOMMEND HIGHER DOSE PO VANCOMYCIN IV FLAGYL AND OBSERVE CLOSELY. CHECK FOR ANY RE-EXACERBATION Review of Systems - Review of Systems Systems not reviewed;Unavailable: Unstable Vital Signs - Constitutional Constitutional: Fatigue, Weakness. absent: Chills, Excessive Sweating, Fever - EENT Eyes: absent: As Per HPI, Blind Spots, Blurred Vision, Change in Vision, Decreased Night Vision, Diplopia, Discharge, Dry Eye, Exophthalmos, Floaters, Irritation, Itchy Eyes, Loss of Peripheral Vision, Pain, Photophobia, Requires Corrective Lenses, Sees Flashes, Spots in Vision, Tunnel Vision, Other Visual Disturbances, Loss of Vision, Other Nose/Mouth/Throat: Dry Mouth - Cardiovascular Cardiovascular: Rapid Heart Rate. absent: Chest Pain, Irregular Heart Rhythm, Orthopnea - Respiratory Respiratory: absent: Dyspnea - Gastrointestinal Gastrointestinal: Abdominal Pain, Diarrhea, Loose Stools, Nausea - Musculoskeletal Musculoskeletal: Myalgias - Integumentary Integumentary: absent: Alopecia, Bleeding Lesions, Rash, Wounds - Neurological Neurological: Abnormal Gait, Lack of Coordination, Weakness - Psychiatric Psychiatric: Anxiety, Depression, Difficulty Concentrating, Mood Swings - Endocrine Endocrine: Fatigue Past Patient History - Infectious Disease Hx of Infectious Diseases: None, C.diff - Tetanus Immunizations Tetanus Immunization: Unknown - Past Medical History & Family History Past Medical History?: Yes - Past Social History Smoking Status: Current Some Days Smoker Alcohol: Occasional Home Situation {Lives}: With Family - CARDIAC Hx Cardiac Disorders: Yes Hx Hypercholesterolemia: Yes - PULMONARY Hx Respiratory Disorders: Yes Hx Bronchitis: Yes Hx Chronic Obstructive Pulmonary Disease (COPD): Yes - NEUROLOGICAL Hx Neurological Disorder: Yes Other/Comment: WEAKNESS - HEENT Hx HEENT Problems: No - RENAL Hx Chronic Kidney Disease: No - ENDOCRINE/METABOLIC Hx Endocrine Disorders: No - HEMATOLOGICAL/ONCOLOGICAL Hx Blood Disorders: No - INTEGUMENTARY Hx Dermatological Problems: No - MUSCULOSKELETAL/RHEUMATOLOGICAL Hx Musculoskeletal Disorders: No Hx Falls: No - GASTROINTESTINAL Hx Gastrointestinal Disorders: Yes Hx Clostridium Difficile: Yes Hx Diarrhea: Yes Hx Diverticulitis: Yes - GENITOURINARY/GYNECOLOGICAL Hx Genitourinary Disorders: No - PSYCHIATRIC Hx Psychophysiologic Disorder: Yes Hx Anxiety: Yes Hx Depression: Yes Hx Substance Use: No - SURGICAL HISTORY Hx Surgeries: Yes Hx Appendectomy: Yes - ANESTHESIA Hx Anesthesia: Yes Hx Anesthesia Reactions: No Hx Malignant Hyperthermia: No Meds Allergies/Adverse Reactions: Allergies Allergy/AdvReac Type Severity Reaction Status Date / Time No Known Allergies Allergy Verified 07/07/17 13:17 - Medications Medications: Current Medications Enoxaparin Sodium (Lovenox) 40 mg SC DAILY [facility] Last Admin: 07/08/17 08:37 Dose: 40 mg Hydrocortisone Sodium Succinate (Solu-Cortef) 100 mg IV Q8H [facility] Last Admin: 07/08/17 19:02 Dose: 100 mg Ciprofloxacin (Cipro 400mg/200ml Dsw) 400 mg in 200 mls @ 133 mls/hr IVPB Q12H [facility] Last Admin: 07/08/17 19:01 Dose: 133 mls/hr Metronidazole (Flagyl) 500 mg in 100 mls @ 100 mls/hr IVPB Q8 [facility] Last Admin: 07/08/17 14:25 Dose: 100 mls/hr Sodium Chloride (Sodium Chloride 0.9%) 1,000 mls @ 100 mls/hr IV .Q10H [facility] Last Admin: 07/08/17 18:14 Dose: 100 mls/hr Nicotine (Nicoderm Cq) 1 patch TD DAILY [facility] Last Admin: 07/08/17 11:14 Dose: 1 patch Vancomycin HCl (Vancocin (Oral Or Rectal Use)) 125 mg PO QID [facility] Last Admin: 07/08/17 18:37 Dose: 125 mg Physical Exam - Constitutional Appears: Non-toxic - Head Exam Head Exam: NORMAL INSPECTION - Eye Exam Eye Exam: Normal appearance - ENT Exam ENT Exam: Mucous Membranes Dry - Neck Exam Neck exam: Positive for: Normal Inspection - Respiratory Exam Respiratory Exam: Decreased Breath Sounds, NORMAL BREATHING PATTERN - Cardiovascular Exam Cardiovascular Exam: REGULAR RHYTHM - GI/Abdominal Exam GI & Abdominal Exam: Diminished Bowel Sounds, Soft. absent: Distended, Mass, Rebound, Rigid, Tenderness - Rectal Exam Rectal Exam: Deferred Results - Vital Signs Recent Vital Signs: Last Vital Signs Temp 98.8 F 07/08/17 15:00 Pulse 73 07/08/17 15:00 Resp 20 07/08/17 15:00 BP 88/53 L 07/08/17 15:00 Pulse Ox 96 07/08/17 15:00 - Labs Result Diagrams: 07/09/17 06:18 07/09/17 06:18 Labs: Laboratory Results - last 24 hr 07/07/17 07/08/17 07/08/17 20:13 07:49 07:49 WBC 23.6 H RBC 4.00 Hgb 12.2 D Hct 36.1 MCV 90.1 MCH 30.6 MCHC 33.9 RDW 14.5 Plt Count 271 MPV 10.5 Neut % (Auto) 87.8 H Lymph % (Auto) 4.0 L Pierce % (Auto) 7.4 Eos % (Auto) 0.4 Baso % (Auto) 0.4 Neut # 20.7 H Lymph # 0.9 L Pierce # 1.7 H Eos # 0.1 Baso # 0.1 Neutrophils % (Manual) 94 H Lymphocytes % (Manual) 2 L Monocytes % (Manual) 3 Eosinophils % (Manual) 1 Platelet Estimate Normal RBC Morphology Normal Sodium 130 L Potassium 3.6 Chloride 104 Carbon Dioxide 22 Anion Gap 8 L BUN 8 Creatinine 0.8 Est GFR ( Amer) > 60 Est GFR (Non-Af Amer) > 60 POC Glucose (mg/dL) Random Glucose 93 Calcium 8.0 L Amylase 72 Lipase 30 Carcinoembryonic Ag 2.5 Stool Leukocytes, Qual C. difficile Ag & Toxin 07/08/17 07/08/17 07/08/17 13:14 14:30 15:50 WBC RBC Hgb Hct MCV MCH MCHC RDW Plt Count MPV Neut % (Auto) Lymph % (Auto) Pierce % (Auto) Eos % (Auto) Baso % (Auto) Neut # Lymph # Pierce # Eos # Baso # Neutrophils % (Manual) Lymphocytes % (Manual) Monocytes % (Manual) Eosinophils % (Manual) Platelet Estimate RBC Morphology Sodium Potassium Chloride Carbon Dioxide Anion Gap BUN Creatinine Est GFR ( Amer) Est GFR (Non-Af Amer) POC Glucose (mg/dL) 183 H Random Glucose Calcium Amylase Lipase Carcinoembryonic Ag Stool Leukocytes, Qual Positive H C. difficile Ag & Toxin Negative 07/08/17 07/08/17 17:51 17:51 WBC 19.0 H RBC 3.86 Hgb 11.5 Hct 35.3 MCV 91.3 MCH 29.9 MCHC 32.7 L RDW 14.6 H Plt Count 259 MPV 10.1 Neut % (Auto) 85.6 H Lymph % (Auto) 7.1 L Pierce % (Auto) 5.2 Eos % (Auto) 1.6 Baso % (Auto) 0.5 Neut # 16.3 H Lymph # 1.3 Pierce # 1.0 H Eos # 0.3 Baso # 0.1 Neutrophils % (Manual) 83 H Lymphocytes % (Manual) 8 L Monocytes % (Manual) 5 Eosinophils % (Manual) 4 Platelet Estimate Normal RBC Morphology Normal Sodium 137 Potassium 3.4 L Chloride 107 Carbon Dioxide 20 L Anion Gap 14 BUN 5 L Creatinine 0.7 Est GFR ( Amer) > 60 Est GFR (Non-Af Amer) > 60 POC Glucose (mg/dL) Random Glucose 137 H Calcium 7.4 L Amylase Lipase Carcinoembryonic Ag Stool Leukocytes, Qual C. difficile Ag & Toxin Assessment & Plan (1) C. difficile colitis Status: Acute Priority: High Comment: POSSIBLE RECURRENT. INCREASE PO VANCOMYCIN. IV FLAGYL (2) Leukocytosis Status: Acute Priority: Medium (3) Acute diverticulitis Status: Suspected Priority: Medium (4) Anxiety and depression Status: Chronic Priority: Low (5) COPD (chronic obstructive pulmonary disease) Status: Chronic
[2017-07-08] MEDS ORDERED: Magnesium Sulfate 1 gm in D5W 1 GM/100 ML BAG IVPB ONE (22:31)
[2017-07-08] MEDS ORDERED: Lactated Ringer's 1,000 ML IV ONE (22:46)
[2017-07-08] MEDS: Potassium Chloride 10 mEq ER Tab PO SCH (23:00)
[2017-07-09] MEDS: Potassium Chloride 10 mEq ER Tab PO SCH (04:00)
[2017-07-09] MEDS: metroNIDAZOLE IV 500 mg/100 ml 500 MG/100 ML BAG IVPB SCH ×3 (06:05→21:51)
[2017-07-09 06:36] LABS: BASO # 0.1 K/uL (0.0-0.2); BASO % 0.4 % (0.0-2.0); EOS # 0.1 K/uL (0.0-0.7); EOS % 0.4 % (0.0-4.0); HEMATOCRIT 35.7 % (34.0-47.0); LYMPH # 0.8 K/uL (1.0-4.3); LYMPH % 5.8 % (20.0-40.0); MEAN CELL VOLUME 91.4 fL (81.0-99.0); MEAN CORPUSCULAR HEMOGLOBIN 30.1 pg (27.0-31.0); MEAN CORPUSCULAR HGB CONC 32.9 g/dL (33.0-37.0); MEAN PLATELET VOLUME 10.3 fL (7.2-11.7); MONO # 0.9 K/uL (0.0-0.8); MONO % 6.3 % (0.0-10.0); PLATELET COUNT 279 K/uL (130-400); RED CELL DISTRIBUTION WIDTH 14.6 % (11.5-14.5); WHITE BLOOD COUNT 14.5 K/uL (4.8-10.8)
[2017-07-09 06:42] LABS: ALB/GLOB RATIO 1.2 (1.0-2.1); ALKALINE PHOSPHATASE 55 U/L (38-126); ALT/SGPT 32 U/L (9-52); AST/SGOT 16 U/L (14-36); BILIRUBIN,TOTAL 0.5 mg/dL (0.2-1.3); BLOOD UREA NITROGEN 4 mg/dL (7-17); CALCIUM 8.1 mg/dl (8.6-10.4); CARBON DIOXIDE 24 mmol/L (22-30); CHLORIDE 110 mmol/L (98-107); GFR AFRICAN-AMERICAN > 60; GLUCOSE,RANDOM 110 mg/dL (65-105); MAGNESIUM 2.1 mg/dL (1.6-2.3); PHOSPHOROUS 3.3 mg/dL (2.5-4.5); SODIUM 140 mmol/L (132-148); TOTAL PROTEIN 5.8 g/dL (6.3-8.3)
[2017-07-09 08:45] LABS: NEUTROPHIL 84 % (50-75); TOTAL CELLS COUNTED 100
[2017-07-09] MEDS: Lactobacillus Acidophilus 500 MU Cap PO SCH ×2 (09:57→18:42)
[2017-07-09] MEDS: Enoxaparin 40 mg Syringe SC SCH (09:57)
[2017-07-09] MEDS: Vancomycin 125 MG/5 ML SOLN (ORAL/RECTAL) PO SCH ×4 (09:59→21:52)
--- NOTE | 2017-07-09 11:02 | RAD ---
PROCEDURE: CHEST RADIOGRAPH, 1 VIEW HISTORY: fluid bolus COMPARISON: 07/08/2017 FINDINGS: LUNGS: Clear. PLEURA: No pneumothorax or pleural fluid seen. CARDIOVASCULAR: Normal. OSSEOUS STRUCTURES: No significant abnormalities. VISUALIZED UPPER ABDOMEN: Normal. OTHER FINDINGS: None. IMPRESSION: No active disease.
--- NOTE | 2017-07-09 14:24 | CP.PCM.PN ---
Subjective - Date & Time of Evaluation Date of Evaluation: 07/09/17 Time of Evaluation: 14:22 - Subjective Subjective: Above noted. F/U diverticulitis. Son is present Pt reports feeling better. Weak- but less. Abdom pain- LLQ- but less. Diarrhea- less. HAs blurry vision Denies chills, SZ, LOC, SOB, RB, melena, hemoptysis, hematuria, cough Objective - Vital Signs/Intake and Output Vital Signs (last 24 hours): Temp Pulse Resp BP Pulse Ox 98.4 F 81 16 98/54 L 98 07/09/17 08:00 07/09/17 12:00 07/09/17 12:00 07/09/17 11:00 07/09/17 12:00 Intake and Output: 07/09/17 07/09/17 06:59 18:59 Intake Total 1847 650 Output Total 1400 Balance 447 650 - Medications Medications: Current Medications Enoxaparin Sodium (Lovenox) 40 mg SC DAILY [facility] Last Admin: 07/09/17 09:57 Dose: 40 mg Metronidazole (Flagyl) 500 mg in 100 mls @ 100 mls/hr IVPB Q8 [facility] Last Admin: 07/09/17 06:05 Dose: 100 mls/hr Lactated Ringer's (Lactated Ringer's) 1,000 mls @ 42 mls/hr IV .[id number] ONE Stop: 07/09/17 22:34 Last Admin: 07/08/17 22:50 Dose: 42 mls/hr Lactobacillus Acidophilus (Bacid Acidophilus) 1 cap PO BID [facility] Last Admin: 07/09/17 09:57 Dose: 1 cap Nicotine (Nicoderm Cq) 1 patch TD DAILY [facility] Last Admin: 07/09/17 09:57 Dose: 1 patch Vancomycin HCl (Vancocin (Oral Or Rectal Use)) 500 mg PO QID [facility] Last Admin: 07/09/17 09:59 Dose: 500 mg - Labs Labs: 07/09/17 06:18 07/09/17 06:18 - Constitutional Appears: Non-toxic - Neck Exam Neck Exam: absent: Tenderness - Respiratory Exam Respiratory Exam: Clear to Ausculation Bilateral - Cardiovascular Exam Cardiovascular Exam: RRR - GI/Abdominal Exam GI & Abdominal Exam: Soft, Tenderness, Normal Bowel Sounds. absent: Guarding, Rigid, Rebound Additional comments: Mild LLQ tenderness./. Less than yesterday - Extremities Exam Extremities Exam: absent: Calf Tenderness - Neurological Exam Neurological Exam: Alert, Oriented x3 Assessment and Plan (1) Acute diverticulitis Status: Suspected (2) Abdominal pain Assessment & Plan: Diverticulitis vs. c diff. Notes from recent stay say pos c difficile. Stool c diff is neg- but was on recent treatment. Status: Acute (3) C. difficile colitis Assessment & Plan: COntinue po vanco and IV flagyl Status: Acute (4) Leukocytosis Assessment & Plan: WBC improving today.. Hypotensive- BP holding steady. Status: Acute (5) COPD (chronic obstructive pulmonary disease) Status: Chronic
--- NOTE | 2017-07-09 19:09 | CP.PCM.PN ---
Subjective - Date & Time of Evaluation Date of Evaluation: 07/09/17 Time of Evaluation: 19:06 - Subjective Subjective: INFECTIOUS DISEASE ICU#4 PROGRESS NOTE PERFECTO AKBAR MD, FACP 07/09/2017 CHART REVIEWED PT EXAMINED X2 WITH RN'S AND STAFF CASE DISCUSSED CLINICALLY MUCH IMPROVED NOW ONLY SOFT LIKE STOOL AND NO ABDOMINAL PAIN RESPONDING TO TREATMENT FOR C.DIFF CONTINUE HIGH DOSE PO VANCOMYCIN NOW AND IV FLAGYL. Objective - Vital Signs/Intake and Output Vital Signs (last 24 hours): Temp Pulse Resp BP Pulse Ox 98.5 F 85 22 93/58 L 95 07/09/17 16:00 07/09/17 18:45 07/09/17 16:06 07/09/17 16:06 07/09/17 16:06 Intake and Output: 07/09/17 07/10/17 18:59 06:59 Intake Total 1264 Output Total 400 Balance 864 - Medications Medications: Current Medications Enoxaparin Sodium (Lovenox) 40 mg SC DAILY [facility] Last Admin: 07/09/17 09:57 Dose: 40 mg Metronidazole (Flagyl) 500 mg in 100 mls @ 100 mls/hr IVPB Q8 [facility] Last Admin: 07/09/17 14:54 Dose: 100 mls/hr Lactated Ringer's (Lactated Ringer's) 1,000 mls @ 42 mls/hr IV .[id number] ONE Stop: 07/09/17 22:34 Last Admin: 07/08/17 22:50 Dose: 42 mls/hr Lactobacillus Acidophilus (Bacid Acidophilus) 1 cap PO BID [facility] Last Admin: 07/09/17 18:42 Dose: 1 cap Nicotine (Nicoderm Cq) 1 patch TD DAILY [facility] Last Admin: 07/09/17 09:57 Dose: 1 patch Vancomycin HCl (Vancocin (Oral Or Rectal Use)) 500 mg PO QID [facility] Last Admin: 07/09/17 18:42 Dose: 500 mg - Labs Labs: 07/09/17 06:18 07/09/17 06:18 - Constitutional Appears: Non-toxic, No Acute Distress, Chronically Ill - Head Exam Head Exam: NORMAL INSPECTION - Eye Exam Eye Exam: Normal appearance - ENT Exam ENT Exam: Mucous Membranes Moist - Neck Exam Neck Exam: Normal Inspection - Respiratory Exam Respiratory Exam: Decreased Breath Sounds, NORMAL BREATHING PATTERN - Cardiovascular Exam Cardiovascular Exam: REGULAR RHYTHM - GI/Abdominal Exam GI & Abdominal Exam: Soft, Hypoactive Bowel Sounds. absent: Tenderness, Pulsatile Mass, Rebound - Rectal Exam Rectal Exam: Deferred - Neurological Exam Neurological Exam: Alert, Awake - Psychiatric Exam Psychiatric exam: Anxious, Depressed, Normal Mood - Skin Skin Exam: Warm Assessment and Plan (1) C. difficile colitis Assessment & Plan: CLINICALLY THIS IS FAILED C,DIFF RX VS RECURRENT Status: Acute (2) Leukocytosis Status: Acute (3) Acute diverticulitis Status: Suspected (4) Anxiety and depression Status: Chronic (5) COPD (chronic obstructive pulmonary disease) Status: Chronic
--- NOTE | 2017-07-09 23:39 | CP.PCM.PN ---
Subjective - Date & Time of Evaluation Date of Evaluation: 07/09/17 Time of Evaluation: 18:00 - Subjective Subjective: General condition improving. Objective - Vital Signs/Intake and Output Vital Signs (last 24 hours): Temp Pulse Resp BP Pulse Ox 98.9 F 73 18 120/70 98 07/09/17 20:00 07/09/17 21:00 07/09/17 21:00 07/09/17 20:23 07/09/17 21:00 Intake and Output: 07/09/17 07/09/17 11:59 23:59 Intake Total 1392 656 Output Total 900 400 Balance 492 256 - Medications Medications: Current Medications Enoxaparin Sodium (Lovenox) 40 mg SC DAILY [facility] Last Admin: 07/09/17 09:57 Dose: 40 mg Metronidazole (Flagyl) 500 mg in 100 mls @ 100 mls/hr IVPB Q8 [facility] Last Admin: 07/09/17 21:51 Dose: 100 mls/hr Lactobacillus Acidophilus (Bacid Acidophilus) 1 cap PO BID [facility] Last Admin: 07/09/17 18:42 Dose: 1 cap Nicotine (Nicoderm Cq) 1 patch TD DAILY [facility] Last Admin: 07/09/17 09:57 Dose: 1 patch Vancomycin HCl (Vancocin (Oral Or Rectal Use)) 500 mg PO QID [facility] Last Admin: 07/09/17 21:52 Dose: 500 mg - Labs Labs: 07/09/17 06:18 07/09/17 06:18 - Constitutional Appears: Chronically Ill - Head Exam Head Exam: ATRAUMATIC, NORMAL INSPECTION, NORMOCEPHALIC - Eye Exam Eye Exam: Normal appearance - Neck Exam Neck Exam: Full ROM - Respiratory Exam Respiratory Exam: Clear to Ausculation Bilateral, NORMAL BREATHING PATTERN - Cardiovascular Exam Cardiovascular Exam: REGULAR RHYTHM, +S1, +S2 - GI/Abdominal Exam GI & Abdominal Exam: Tenderness - Neurological Exam Neurological Exam: Alert, Awake, CN II-XII Intact, Oriented x3 Assessment and Plan (1) Acute diverticulitis Status: Suspected (2) Abdominal pain Status: Acute (3) Anxiety and depression Status: Chronic (4) Leukocytosis Status: Acute - Assessment and Plan (Free Text) Plan: Continue present rx.
--- NOTE | 2017-07-10 04:05 | CON ---
ENDOCRINOLOGY CONSULT DATE: LOCATION: ICU room 4. HISTORY OF PRESENT ILLNESS: This is a 67-year-old female with known history of diverticulitis presenting here with severe and recurrent left lower quadrant pain with associated fever and chills and admitted for further GI workup and management and is now being referred for possible adrenal insufficiency. PAST MEDICAL HISTORY: As mentioned above, history of recent diagnosis of acute diverticulitis and was on IV antibiotics in the past and was discharged on oral antibiotics till the present time, history of hypertension and dyslipidemia. She denies any prior steroid usage, but has been given p.r.n. oral steroids for acute exacerbation of asthmatic bronchitis and underlying COPD. FAMILY HISTORY: Positive for diabetes, hypertension. SOCIAL HISTORY: The patient has supportive family. No known substance use. REVIEW OF SYSTEMS: As mentioned above, admits to generalized body weakness with easy fatigability and tiredness and suboptimal energy level. No chest pain or palpitations or PNDs, admits to progressive shortness of breath especially on exertion with occasional paroxysmal nocturnal dyspnea. Her oral intake has been variable with nausea, dyspepsia, and severe and intense abdominal pain localized to the left lower quadrant area. Also admits to alternating bouts of constipation and diarrhea as noted. PHYSICAL EXAMINATION: GENERAL: This is an average-built female in moderate abdominal distress . VITAL SIGNS: Blood pressure of 140/80, pulse of 100 beats per minute and regular, temperature 101, respirations 20, height 5 feet 3 inches, weight is 117 pounds. HEENT: Head normocephalic. Eyes anicteric with pink conjunctivae. Funduscopy not possible at this time. Ears, nose, and throat otherwise normal. NECK: Supple. Thyroid gland is normal size. No carotid bruits or cervical adenopathy. CARDIOPULMONARY: Adynamic precordium. S1 and S2 is rapid and regular. LUNGS: Clear to auscultation. ABDOMEN: Flat and soft with positive direct tenderness in the left lower quadrant area but no evidence of any rebound tenderness. EXTREMITIES: No peripheral edema. Pulses are +2 bilaterally. LABORATORY DATA: Initial chemistry showed BUN of 4, sodium 140, potassium 5.0, chloride 110, CO2 of 24, glucose 110, and creatinine 0.7. Initial TSH is 0.37 *------* so-called acute sick euthyroid syndrome, although we have to exclude any underlying subclinical hyperthyroidism. Serum cortisol level is 4.3 mcg/dL with a low-normal albumin of 3.2 and a corrected cortisol of around 8 mcg/dL. ASSESSMENT: This is a 67-year-old female with acute diabetic cellulitis presenting with severe uneventful abdominal pain and also with underlying chronic obstructive pulmonary disease,currently not on any kind of steroid therapy; and the possibility of adrenal insufficiency is being *------* at this time. Because of the low-normal serum cortisol level, however, with the underlying hypoalbuminemia and the correction factor thereof, she actually has normal cortisol levels as mentioned above. It could be quite unlikely for her to have hypoadrenalism unless she was on long-term steroid therapy for management of asthmatic bronchitis, which she was not on as above at this time. She may have been given also steroid therapy for management of lower abdominal pain and diverticulitis, which she was also not given as above. PLAN OF MANAGEMENT: We will repeat the serum cortisol and ACTH levels tomorrow and also the serum albumin level; and since she is hemodynamically stable, we will hold off on the Cortrosyn stimulation test for now. We will continue the IV hydration as stated for now and obtain serum chemistries thereof. We will follow her and advise accordingly. Radha Whitmore MD
[2017-07-10] MEDS: metroNIDAZOLE IV 500 mg/100 ml 500 MG/100 ML BAG IVPB SCH ×3 (06:01→21:05)
[2017-07-10 06:48] LABS: BASO # 0.1 K/uL (0.0-0.2); BASO % 1.2 % (0.0-2.0); EOS # 0.5 K/uL (0.0-0.7); EOS % 6.6 % (0.0-4.0); HEMATOCRIT 36.5 % (34.0-47.0); LYMPH # 1.1 K/uL (1.0-4.3); LYMPH % 14.6 % (20.0-40.0); MEAN CELL VOLUME 90.8 fL (81.0-99.0); MEAN CORPUSCULAR HEMOGLOBIN 30.7 pg (27.0-31.0); MEAN CORPUSCULAR HGB CONC 33.8 g/dL (33.0-37.0); MEAN PLATELET VOLUME 10.4 fL (7.2-11.7); MONO # 0.7 K/uL (0.0-0.8); MONO % 9.5 % (0.0-10.0); NRBC % 0.1 % (0.0-2.0); RED CELL DISTRIBUTION WIDTH 14.4 % (11.5-14.5); WHITE BLOOD COUNT 7.2 K/uL (4.8-10.8)
[2017-07-10 07:00] LABS: BLOOD UREA NITROGEN 5 mg/dL (7-17); CALCIUM 8.4 mg/dl (8.6-10.4); CARBON DIOXIDE 25 mmol/L (22-30); CHLORIDE 107 mmol/L (98-107); GFR AFRICAN-AMERICAN > 60; GLUCOSE,RANDOM 93 mg/dL (65-105); POTASSIUM 4.2 mmol/L (3.6-5.2); SODIUM 138 mmol/L (132-148)
[2017-07-10 07:14] LABS: T4 10.7 ug/dL (5.5-11.0)
[2017-07-10 07:27] LABS: THYROID STIMULATING HORMONE 1.64 mIU/L (0.46-4.68)
[2017-07-10] MEDS ORDERED: Dextrose 5%/0.9% NS 1,000 ML IV ONE ×2 (07:33→10:51)
[2017-07-10] MEDS: Lactobacillus Acidophilus 500 MU Cap PO SCH ×2 (10:31→17:26)
[2017-07-10] MEDS: Vancomycin 125 MG/5 ML SOLN (ORAL/RECTAL) PO SCH ×4 (10:31→21:05)
[2017-07-10] MEDS: Enoxaparin 40 mg Syringe SC SCH (10:31)
--- NOTE | 2017-07-10 10:56 | CP.PCM.PN ---
Subjective - Date & Time of Evaluation Date of Evaluation: 07/10/17 Time of Evaluation: 10:58 - Subjective Subjective: Patient seen at bed side,family present. General condition improving on antibx iv and ivf. Minimal LLQ tenderness, BP better controlled on ivf. Will continue present rx. Objective - Vital Signs/Intake and Output Vital Signs (last 24 hours): Temp Pulse Resp BP Pulse Ox 98.3 F 79 15 93/48 L 97 07/10/17 08:00 07/10/17 10:24 07/10/17 10:24 07/10/17 10:24 07/10/17 10:00 Intake and Output: 07/09/17 07/10/17 23:59 11:59 Intake Total 656 Output Total 400 Balance 256 - Medications Medications: Current Medications Enoxaparin Sodium (Lovenox) 40 mg SC DAILY [facility] Last Admin: 07/10/17 10:31 Dose: 40 mg Metronidazole (Flagyl) 500 mg in 100 mls @ 100 mls/hr IVPB Q8 [facility] Last Admin: 07/10/17 06:01 Dose: 100 mls/hr Dextrose/Sodium Chloride (Dextrose 5%/0.9% Ns 1000 Ml) 1,000 mls @ 85 mls/hr IV .[id number] ONE Stop: 07/10/17 19:18 Lactobacillus Acidophilus (Bacid Acidophilus) 1 cap PO BID [facility] Last Admin: 07/10/17 10:31 Dose: 1 cap Nicotine (Nicoderm Cq) 1 patch TD DAILY [facility] Last Admin: 07/10/17 10:31 Dose: 1 patch Vancomycin HCl (Vancocin (Oral Or Rectal Use)) 500 mg PO QID [facility] Last Admin: 07/10/17 10:31 Dose: 500 mg - Labs Labs: 07/10/17 06:30 07/10/17 06:32 - Constitutional Appears: Non-toxic - Head Exam Head Exam: ATRAUMATIC, NORMAL INSPECTION, NORMOCEPHALIC - Eye Exam Eye Exam: Normal appearance - ENT Exam ENT Exam: Mucous Membranes Moist - Neck Exam Neck Exam: Full ROM - Respiratory Exam Respiratory Exam: Clear to Ausculation Bilateral - Cardiovascular Exam Cardiovascular Exam: REGULAR RHYTHM, +S1, +S2 - GI/Abdominal Exam Additional comments: mininal tenderness in LLQ with no rebound. - Extremities Exam Extremities Exam: Full ROM - Neurological Exam Neurological Exam: Alert, Awake, CN II-XII Intact, Oriented x3 - Psychiatric Exam Psychiatric exam: Normal Affect - Skin Skin Exam: Normal Color Assessment and Plan (1) Acute diverticulitis Status: Acute (2) Abdominal pain Status: Acute (3) Anxiety and depression Status: Chronic (4) Leukocytosis Status: Resolved (5) C. difficile colitis Status: Suspected - Assessment and Plan (Free Text) Plan: Continue present rx.
--- NOTE | 2017-07-10 11:30 | CP.PCM.PN ---
Subjective - Date & Time of Evaluation Date of Evaluation: 07/10/17 Time of Evaluation: 11:28 - Subjective Subjective: F/U abdom pain Pt reports feeling better. 97% less abdom pain Denies fever, chills, Rb, melena, CP, SOB, RUSSELL, cough Objective - Vital Signs/Intake and Output Vital Signs (last 24 hours): Temp Pulse Resp BP Pulse Ox 98.3 F 79 15 93/48 L 97 07/10/17 08:00 07/10/17 10:24 07/10/17 10:24 07/10/17 10:24 07/10/17 10:00 Intake and Output: 07/10/17 07/10/17 06:59 18:59 Intake Total 42 Balance 42 - Medications Medications: Current Medications Enoxaparin Sodium (Lovenox) 40 mg SC DAILY [facility] Last Admin: 07/10/17 10:31 Dose: 40 mg Metronidazole (Flagyl) 500 mg in 100 mls @ 100 mls/hr IVPB Q8 [facility] Last Admin: 07/10/17 06:01 Dose: 100 mls/hr Dextrose/Sodium Chloride (Dextrose 5%/0.9% Ns 1000 Ml) 1,000 mls @ 85 mls/hr IV .[id number] ONE Stop: 07/10/17 19:18 Lactobacillus Acidophilus (Bacid Acidophilus) 1 cap PO BID [facility] Last Admin: 07/10/17 10:31 Dose: 1 cap Nicotine (Nicoderm Cq) 1 patch TD DAILY [facility] Last Admin: 07/10/17 10:31 Dose: 1 patch Vancomycin HCl (Vancocin (Oral Or Rectal Use)) 500 mg PO QID [facility] Last Admin: 07/10/17 10:31 Dose: 500 mg - Labs Labs: 07/10/17 06:30 07/10/17 06:32 - Neck Exam Neck Exam: Full ROM - Respiratory Exam Respiratory Exam: Clear to Ausculation Bilateral - Cardiovascular Exam Cardiovascular Exam: RRR - GI/Abdominal Exam GI & Abdominal Exam: Soft, Normal Bowel Sounds. absent: Guarding, Mass Additional comments: min LLQ tenderness - Extremities Exam Extremities Exam: absent: Calf Tenderness - Neurological Exam Neurological Exam: Alert, Oriented x3 Assessment and Plan (1) Acute diverticulitis Status: Acute (2) Abdominal pain Assessment & Plan: Diverticulitis vs c diff. Rec- Cont vanco po. MAy need longer term Rx,. Status: Acute (3) C. difficile colitis Status: Suspected (4) Leukocytosis Assessment & Plan: better Status: Resolved (5) COPD (chronic obstructive pulmonary disease) Status: Chronic
[2017-07-10 18:10] LABS: BLOOD UREA NITROGEN 7 mg/dL (7-17); CALCIUM 8.2 mg/dl (8.6-10.4); CARBON DIOXIDE 28 mmol/L (22-30); CHLORIDE 104 mmol/L (98-107); GFR AFRICAN-AMERICAN > 60; GLUCOSE,RANDOM 115 mg/dL (65-105); POTASSIUM 3.9 mmol/L (3.6-5.2); SODIUM 140 mmol/L (132-148)
[2017-07-11] MEDS: metroNIDAZOLE IV 500 mg/100 ml 500 MG/100 ML BAG IVPB SCH ×3 (05:12→21:52)
[2017-07-11 06:24] LABS: BASO # 0.1 K/uL (0.0-0.2); BASO % 0.8 % (0.0-2.0); EOS # 0.4 K/uL (0.0-0.7); EOS % 6.6 % (0.0-4.0); HEMATOCRIT 37.3 % (34.0-47.0); LYMPH # 1.1 K/uL (1.0-4.3); LYMPH % 16.4 % (20.0-40.0); MEAN CELL VOLUME 91.1 fL (81.0-99.0); MEAN CORPUSCULAR HEMOGLOBIN 30.5 pg (27.0-31.0); MEAN CORPUSCULAR HGB CONC 33.5 g/dL (33.0-37.0); MEAN PLATELET VOLUME 10.6 fL (7.2-11.7); MONO # 0.7 K/uL (0.0-0.8); MONO % 10.6 % (0.0-10.0); NRBC % 0.1 % (0.0-2.0); RED CELL DISTRIBUTION WIDTH 14.4 % (11.5-14.5); WHITE BLOOD COUNT 6.6 K/uL (4.8-10.8)
[2017-07-11 06:45] LABS: BLOOD UREA NITROGEN 7 mg/dL (7-17); CALCIUM 8.4 mg/dl (8.6-10.4); CARBON DIOXIDE 28 mmol/L (22-30); CHLORIDE 104 mmol/L (98-107); GFR AFRICAN-AMERICAN > 60; GLUCOSE,RANDOM 90 mg/dL (65-105); POTASSIUM 3.9 mmol/L (3.6-5.2); SODIUM 138 mmol/L (132-148)
[2017-07-11] MEDS: Enoxaparin 40 mg Syringe SC SCH (09:45)
[2017-07-11] MEDS: Lactobacillus Acidophilus 500 MU Cap PO SCH ×2 (09:46→17:23)
[2017-07-11] MEDS: Vancomycin 125 MG/5 ML SOLN (ORAL/RECTAL) PO SCH ×4 (09:46→21:51)
--- NOTE | 2017-07-11 09:50 | CP.PCM.PN ---
Subjective - Date & Time of Evaluation Date of Evaluation: 07/11/17 Time of Evaluation: 09:49 - Subjective Subjective: F/U abdom pain Family- present Reports less abdom pain. Feeling better. Less diarrhea. Denies RB, melena, fever, chills, SZ, LOC, SZ, hematuria, hemoptysis Objective - Vital Signs/Intake and Output Vital Signs (last 24 hours): Temp Pulse Resp BP Pulse Ox 98.2 F 71 20 107/65 95 07/11/17 08:00 07/11/17 00:00 07/11/17 00:00 07/11/17 00:00 07/11/17 00:00 Intake and Output: 07/11/17 07/11/17 06:59 18:59 Intake Total 440 Output Total 600 Balance -160 - Medications Medications: Current Medications Enoxaparin Sodium (Lovenox) 40 mg SC DAILY [facility] Last Admin: 07/11/17 09:45 Dose: 40 mg Metronidazole (Flagyl) 500 mg in 100 mls @ 100 mls/hr IVPB Q8 [facility] Last Admin: 07/11/17 05:12 Dose: 100 mls/hr Dextrose/Sodium Chloride (Dextrose 5%-0.9% Ns 500 Ml) 500 mls @ 85 mls/hr IV .[id number] ONE Stop: 07/11/17 14:50 Last Admin: 07/11/17 09:40 Dose: 85 mls/hr Lactobacillus Acidophilus (Bacid Acidophilus) 1 cap PO BID [facility] Last Admin: 07/11/17 09:46 Dose: 1 cap Nicotine (Nicoderm Cq) 1 patch TD DAILY [facility] Last Admin: 07/11/17 09:45 Dose: 1 patch Vancomycin HCl (Vancocin (Oral Or Rectal Use)) 500 mg PO QID [facility] Last Admin: 07/11/17 09:46 Dose: 500 mg - Labs Labs: 07/11/17 06:16 07/11/17 06:17 - Constitutional Appears: Non-toxic - Neck Exam Neck Exam: Full ROM - Respiratory Exam Respiratory Exam: Clear to Ausculation Bilateral - Cardiovascular Exam Cardiovascular Exam: RRR - GI/Abdominal Exam GI & Abdominal Exam: Soft, Normal Bowel Sounds. absent: Tenderness - Extremities Exam Extremities Exam: absent: Calf Tenderness - Neurological Exam Neurological Exam: Alert, Awake, Oriented x3 Assessment and Plan (1) Acute diverticulitis Status: Acute (2) Abdominal pain Status: Acute (3) C. difficile colitis Status: Suspected (4) COPD (chronic obstructive pulmonary disease) Status: Chronic
--- NOTE | 2017-07-11 11:12 | CP.PCM.PN ---
Subjective - Date & Time of Evaluation Date of Evaluation: 07/11/17 Time of Evaluation: 11:12 - Subjective Subjective: Patient improving well minimal abd discomfort, BP better controlled, less diarrhea. Objective - Vital Signs/Intake and Output Vital Signs (last 24 hours): Temp Pulse Resp BP Pulse Ox 98.2 F 71 20 107/65 95 07/11/17 08:00 07/11/17 00:00 07/11/17 00:00 07/11/17 00:00 07/11/17 00:00 Intake and Output: 07/10/17 07/11/17 23:59 11:59 Intake Total 1600 440 Output Total 600 Balance 1600 -160 - Medications Medications: Current Medications Enoxaparin Sodium (Lovenox) 40 mg SC DAILY [facility] Last Admin: 07/11/17 09:45 Dose: 40 mg Metronidazole (Flagyl) 500 mg in 100 mls @ 100 mls/hr IVPB Q8 [facility] Last Admin: 07/11/17 05:12 Dose: 100 mls/hr Dextrose/Sodium Chloride (Dextrose 5%-0.9% Ns 500 Ml) 500 mls @ 85 mls/hr IV .[id number] ONE Stop: 07/11/17 14:50 Last Admin: 07/11/17 09:40 Dose: 85 mls/hr Lactobacillus Acidophilus (Bacid Acidophilus) 1 cap PO BID [facility] Last Admin: 07/11/17 09:46 Dose: 1 cap Nicotine (Nicoderm Cq) 1 patch TD DAILY [facility] Last Admin: 07/11/17 09:45 Dose: 1 patch Vancomycin HCl (Vancocin (Oral Or Rectal Use)) 500 mg PO QID [facility] Last Admin: 07/11/17 09:46 Dose: 500 mg - Labs Labs: 07/11/17 06:16 07/11/17 06:17 - Constitutional Appears: Non-toxic - Head Exam Head Exam: ATRAUMATIC, NORMAL INSPECTION, NORMOCEPHALIC - Eye Exam Eye Exam: Normal appearance - ENT Exam ENT Exam: Mucous Membranes Moist - Neck Exam Neck Exam: Full ROM - Respiratory Exam Respiratory Exam: Clear to Ausculation Bilateral - Cardiovascular Exam Cardiovascular Exam: REGULAR RHYTHM, +S1, +S2 - GI/Abdominal Exam Additional comments: minimal residual tenderness in the LLQ with no rebound. - Neurological Exam Neurological Exam: Alert, Awake, CN II-XII Intact, Oriented x3 - Psychiatric Exam Psychiatric exam: Normal Affect - Skin Skin Exam: Normal Color Assessment and Plan (1) Acute diverticulitis Status: Acute (2) Abdominal pain Status: Acute (3) Anxiety and depression Status: Chronic (4) Leukocytosis Status: Resolved (5) C. difficile colitis Status: Suspected - Assessment and Plan (Free Text) Plan: For snf (TCU) to continue IV antibx x 10 days.
--- NOTE | 2017-07-11 11:30 | CP.PCM.PN ---
Subjective - Date & Time of Evaluation Date of Evaluation: 07/11/17 Time of Evaluation: 11:21 - Subjective Subjective: INFECTIOUS DISEASE ICU PROGRESS NOTE PERFECTO AKBAR MD, FACP 1CU#4 07/11/2017 CHART REVIEWED CASE DISCUSSED AEKRISTIN ARAMBULA IMPROVING DAILY ON PO VANCOMYCIN AND IV FLAGYL CLINICALLY RESPONDING TO C DIFF TREATMENT AGGRESSIVELY WOULD CONSIDER USING PROLONGED EMILIE PROTOCOL FOR C DIFF. SINCE SHE EITHER RECURRED OR FALTERED. Objective - Vital Signs/Intake and Output Vital Signs (last 24 hours): Temp Pulse Resp BP Pulse Ox 98.2 F 71 20 107/65 95 07/11/17 08:00 07/11/17 00:00 07/11/17 00:00 07/11/17 00:00 07/11/17 00:00 Intake and Output: 07/11/17 07/11/17 06:59 18:59 Intake Total 440 Output Total 600 Balance -160 - Medications Medications: Current Medications Enoxaparin Sodium (Lovenox) 40 mg SC DAILY [facility] Last Admin: 07/11/17 09:45 Dose: 40 mg Metronidazole (Flagyl) 500 mg in 100 mls @ 100 mls/hr IVPB Q8 [facility] Last Admin: 07/11/17 05:12 Dose: 100 mls/hr Dextrose/Sodium Chloride (Dextrose 5%-0.9% Ns 500 Ml) 500 mls @ 85 mls/hr IV .[id number] ONE Stop: 07/11/17 14:50 Last Admin: 07/11/17 09:40 Dose: 85 mls/hr Lactobacillus Acidophilus (Bacid Acidophilus) 1 cap PO BID [facility] Last Admin: 07/11/17 09:46 Dose: 1 cap Nicotine (Nicoderm Cq) 1 patch TD DAILY [facility] Last Admin: 07/11/17 09:45 Dose: 1 patch Vancomycin HCl (Vancocin (Oral Or Rectal Use)) 500 mg PO QID [facility] Last Admin: 07/11/17 09:46 Dose: 500 mg - Labs Labs: 07/11/17 06:16 07/11/17 06:17 Assessment and Plan (1) C. difficile colitis Status: Chronic (2) Acute diverticulitis Status: Suspected (3) Anxiety and depression Status: Chronic (4) COPD (chronic obstructive pulmonary disease) Status: Chronic
--- NOTE | 2017-07-11 16:35 | PN ---
DATE: LOCATION: In ICU, room 4. This is a 67-year-old female with acute diverticulitis and admitted now for further GI workup and management and currently receiving IV antibiotics and IV hydration was given. The possibility of adrenal insufficiency was brought up because of low normal cholesterol levels and mild hyperkalemia as noted. Repeat chemistries today shows a BUN of 5, sodium 138, potassium 4.2, chloride 107, CO2 25, glucose 93 and creatinine 6.8. Her repeat serum cortisol level was actually 9.6 mcg today, which is normal as noted; the initial one was 4.3 with underlying hypoalbuminemia. The thyroid studies showed a T4 of 10.7 with a TSH of 1.64. So, at this time, we will hold off any kind of oral or IV steroid therapy as she remains clinically and biochemically euadrenal at this time. We will obtain serial chemistries and supplement accordingly as needed. We will follow with you. Radha Whitmore MD
--- NOTE | 2017-07-11 22:00 | PN ---
DATE: ENDOCRINOLOGY FOLLOWUP NOTE LOCATION: In ICU room 4. SUBJECTIVE: This is a 67-year-old female admitted with acute diverticulitis and diffuse abdominal pain, and currently receiving IV antibiotic management and is also being followed closely for metabolic management. There was a possibility of adrenal insufficiency, which subsequent hormonal testing excluded at this time. Her latest chemistry shows a BUN of 7, sodium 138, potassium 3.9, chloride 104, CO2 of 28, glucose 90, and creatinine 0.9. Her latest serum cortisol level is 9.6 mcg/dL with a TSH of 1.64 and a total T4 of 10.7. So at this time, we will continue the serial chemistries to be obtained and hold off any kind of thyroid or adrenal pharmacotherapy. We will follow this. Radha Whitmore MD
[2017-07-12] MEDS: metroNIDAZOLE IV 500 mg/100 ml 500 MG/100 ML BAG IVPB SCH ×3 (05:40→22:10)
[2017-07-12 06:09] LABS: BASO # 0.1 K/uL (0.0-0.2); BASO % 0.8 % (0.0-2.0); EOS # 0.4 K/uL (0.0-0.7); EOS % 5.3 % (0.0-4.0); LYMPH % 13.8 % (20.0-40.0); MEAN CELL VOLUME 90.5 fL (81.0-99.0); MEAN CORPUSCULAR HEMOGLOBIN 30.8 pg (27.0-31.0); MEAN CORPUSCULAR HGB CONC 34.1 g/dL (33.0-37.0); MEAN PLATELET VOLUME 10.3 fL (7.2-11.7); MONO # 0.6 K/uL (0.0-0.8); MONO % 8.7 % (0.0-10.0); RED CELL DISTRIBUTION WIDTH 14.2 % (11.5-14.5); WHITE BLOOD COUNT 7.1 K/uL (4.8-10.8)
[2017-07-12 06:29] LABS: BLOOD UREA NITROGEN 11 mg/dL (7-17); CALCIUM 8.8 mg/dl (8.6-10.4); CARBON DIOXIDE 26 mmol/L (22-30); CHLORIDE 102 mmol/L (98-107); GFR AFRICAN-AMERICAN > 60; GLUCOSE,RANDOM 101 mg/dL (65-105); POTASSIUM 4.4 mmol/L (3.6-5.2); SODIUM 137 mmol/L (132-148)
[2017-07-12 10:25] LABS: POTASSIUM 3.7 mmol/L (3.6-5.2)
[2017-07-12] MEDS: Lactobacillus Acidophilus 500 MU Cap PO SCH ×3 (10:39→20:54)
[2017-07-12] MEDS: Vancomycin 125 MG/5 ML SOLN (ORAL/RECTAL) PO SCH ×5 (10:39→22:10)
[2017-07-12] MEDS: Enoxaparin 40 mg Syringe SC SCH (11:00)
--- NOTE | 2017-07-12 14:37 | CP.PCM.PN ---
Subjective - Date & Time of Evaluation Date of Evaluation: 07/12/17 Time of Evaluation: 14:36 - Subjective Subjective: CC; follow up for CDiff colitis Feels well. Denies diarrhea. Tolerating diet Objective - Vital Signs/Intake and Output Vital Signs (last 24 hours): Temp Pulse Resp BP Pulse Ox 98 F 72 14 107/77 98 07/12/17 08:00 07/12/17 08:00 07/12/17 08:00 07/12/17 08:00 07/12/17 08:00 Intake and Output: 07/12/17 07/12/17 06:59 18:59 Intake Total 450 Balance 450 - Medications Medications: Current Medications Enoxaparin Sodium (Lovenox) 40 mg SC DAILY [facility] Last Admin: 07/12/17 11:00 Dose: 40 mg Metronidazole (Flagyl) 500 mg in 100 mls @ 100 mls/hr IVPB Q8 [facility] Last Admin: 07/12/17 14:06 Dose: 100 mls/hr Lactobacillus Acidophilus (Bacid Acidophilus) 1 cap PO BID [facility] Last Admin: 07/12/17 10:39 Dose: 1 cap Nicotine (Nicoderm Cq) 1 patch TD DAILY [facility] Last Admin: 07/12/17 10:39 Dose: 1 patch Vancomycin HCl (Vancocin (Oral Or Rectal Use)) 500 mg PO QID [facility] Last Admin: 07/12/17 14:06 Dose: 500 mg - Labs Labs: 07/12/17 06:03 07/12/17 06:03 - Constitutional Appears: Well, No Acute Distress - Head Exam Head Exam: NORMOCEPHALIC - Eye Exam Eye Exam: absent: Scleral icterus - Neck Exam Neck Exam: absent: Thyromegaly - Respiratory Exam Respiratory Exam: NORMAL BREATHING PATTERN - Cardiovascular Exam Cardiovascular Exam: REGULAR RHYTHM - GI/Abdominal Exam GI & Abdominal Exam: Soft. absent: Tenderness Assessment and Plan (1) C. difficile colitis Assessment & Plan: Stable Recommend full 2 week course of oral Vancomycin Follow up in office Status: Chronic
--- NOTE | 2017-07-12 15:11 | PN ---
DATE: ENDOCRINOLOGY FOLLOWUP NOTE biochemical indices and furthermore profile indicates the presence of adrenal insufficiency as noted. The latest chemistry showed a BUN of 11, sodium 140, potassium 5.0, chloride 104, CO2 26, glucose 101, and creatinine 0.7. The plan is to continue the present medical management. No indication at this time for initiation of IV or oral steroid therapy. We will obtain serial chemistries and supplement accordingly as needed. We will follow. Radha Whitmore MD
--- NOTE | 2017-07-12 17:40 | CP.PCM.PN ---
Subjective - Date & Time of Evaluation Date of Evaluation: 07/12/17 Time of Evaluation: 17:36 - Subjective Subjective: INFECTIOUS DISEASE ICU #4 PROGRESS NOTE PERFECTO AKBAR MD, FACP 07/12/2017 RESPONDING WELL ON PO VANCOMYCIN AND IV FLAGYL WOULD HIGHLY RECOMMEND FOLLOWING THIS TREATMENT PLAN: VANCOMYCIN 125MG PO QID X 2 WEEKS, THEN VANCOMYCIN 125MG PO BID X 7 DAYS, THEN 125MG PO OD X 7 DAYS, THEN 125MG PO EVERYOTHER DAY X 7 DAYS, THEN VANCOMYCIN 125MG PO Q 3 DAYS FOR 14 DAYS. I WILL FOLLOW IN MY OFFICE, PLEASE SEND HER ACCORDINGLY. THANK YOU Objective - Vital Signs/Intake and Output Vital Signs (last 24 hours): Temp Pulse Resp BP Pulse Ox 98.7 F 72 14 107/77 98 07/12/17 16:00 07/12/17 08:00 07/12/17 08:00 07/12/17 08:00 07/12/17 08:00 Intake and Output: 07/12/17 07/12/17 06:59 18:59 Intake Total 450 Balance 450 - Medications Medications: Current Medications Enoxaparin Sodium (Lovenox) 40 mg SC DAILY [facility] Last Admin: 07/12/17 11:00 Dose: 40 mg Metronidazole (Flagyl) 500 mg in 100 mls @ 100 mls/hr IVPB Q8 [facility] Last Admin: 07/12/17 14:06 Dose: 100 mls/hr Lactobacillus Acidophilus (Bacid Acidophilus) 1 cap PO BID [facility] Last Admin: 07/12/17 17:07 Dose: 1 cap Nicotine (Nicoderm Cq) 1 patch TD DAILY [facility] Last Admin: 07/12/17 10:39 Dose: 1 patch Vancomycin HCl (Vancocin (Oral Or Rectal Use)) 500 mg PO QID [facility] Last Admin: 07/12/17 17:07 Dose: 500 mg - Labs Labs: 07/12/17 06:03 07/12/17 06:03 - Constitutional Appears: Non-toxic, No Acute Distress, Older Than Stated Age - Head Exam Head Exam: NORMAL INSPECTION - Eye Exam Eye Exam: Normal appearance - ENT Exam ENT Exam: Mucous Membranes Moist - Neck Exam Neck Exam: Normal Inspection - Respiratory Exam Respiratory Exam: Decreased Breath Sounds, NORMAL BREATHING PATTERN - Cardiovascular Exam Cardiovascular Exam: REGULAR RHYTHM - GI/Abdominal Exam GI & Abdominal Exam: Soft, Normal Bowel Sounds. absent: Distended, Firm, Guarding, Rigid, Tenderness, Mass, Rebound - Rectal Exam Rectal Exam: Deferred Assessment and Plan (1) C. difficile colitis Assessment & Plan: SEE MY MODIFIED EMILIE PROTOCOL FOR RECURRENT C. DIFF. Status: Chronic (2) Acute diverticulitis Status: Resolved (3) Anxiety and depression Status: Chronic (4) COPD (chronic obstructive pulmonary disease) Status: Chronic
[2017-07-12 17:45] VITALS: O2SAT 96
--- NOTE | 2017-07-12 19:20 | CP.PCM.PN ---
Subjective - Date & Time of Evaluation Date of Evaluation: 07/12/17 Time of Evaluation: 19:25 - Subjective Subjective: Patient improving well on present rx, vanco po and flagyl iv. After a conversation with ID party plan sales consultant will continue the present therapy for better coverage of C.Diff and for diverticulitis. Patient presented with failure to OP rx with recurrence of colitis and diverticulitis. It is clinically necessary to continue on the present dual rx, in consideration of the significant positive clinical response, for the best interest of the patient care and prevent possible relapse of her condition. On presentation patient was clinically septic with hemodynamically instability. ID consult appreciated. Will continue care on SNF level to complete 10 days of iv and oral rx. Objective - Vital Signs/Intake and Output Vital Signs (last 24 hours): Temp Pulse Resp BP Pulse Ox 98.7 F 85 14 123/77 96 07/12/17 16:00 07/12/17 16:00 07/12/17 16:00 07/12/17 16:00 07/12/17 16:00 Intake and Output: 07/12/17 07/12/17 11:59 23:59 Intake Total 450 Balance 450 - Medications Medications: Current Medications Enoxaparin Sodium (Lovenox) 40 mg SC DAILY [facility] Last Admin: 07/12/17 11:00 Dose: 40 mg Metronidazole (Flagyl) 500 mg in 100 mls @ 100 mls/hr IVPB Q8 [facility] Lactobacillus Acidophilus (Bacid Acidophilus) 2 cap PO Q12H [facility] Nicotine (Nicoderm Cq) 1 patch TD DAILY [facility] Last Admin: 07/12/17 10:39 Dose: 1 patch Vancomycin HCl (Vancocin (Oral Or Rectal Use)) 125 mg PO QID [facility] Last Admin: 07/12/17 18:04 Dose: Not Given - Labs Labs: 07/12/17 06:03 07/12/17 06:03 Assessment and Plan (1) Acute diverticulitis Status: Resolved (2) Abdominal pain Status: Acute (3) Anxiety and depression Status: Chronic (4) C. difficile colitis Status: Chronic
[2017-07-13] MEDS: metroNIDAZOLE IV 500 mg/100 ml 500 MG/100 ML BAG IVPB SCH ×2 (05:39→13:12)
--- NOTE | 2017-07-13 08:26 | CP.PCM.PN ---
Subjective - Date & Time of Evaluation Date of Evaluation: 07/13/17 Time of Evaluation: 08:24 - Subjective Subjective: F/U colitis. Feeling better. Less abdom pain. Less diarrhea. Denies constip, RB, melena, fever, chills, CP, SOB, RUSSELL, cough present. Discussed with RN. Objective - Vital Signs/Intake and Output Vital Signs (last 24 hours): Temp Pulse Resp BP Pulse Ox 99.3 F 87 18 120/73 96 07/12/17 20:00 07/12/17 20:00 07/12/17 20:00 07/12/17 20:00 07/12/17 20:00 Intake and Output: 07/13/17 07/13/17 06:59 18:59 Intake Total 450 Balance 450 - Medications Medications: Current Medications Enoxaparin Sodium (Lovenox) 40 mg SC DAILY [facility] Last Admin: 07/12/17 11:00 Dose: 40 mg Metronidazole (Flagyl) 500 mg in 100 mls @ 100 mls/hr IVPB Q8 [facility] Last Admin: 07/13/17 05:39 Dose: 100 mls/hr Lactobacillus Acidophilus (Bacid Acidophilus) 2 cap PO Q12H [facility] Last Admin: 07/12/17 20:54 Dose: 1 cap Nicotine (Nicoderm Cq) 1 patch TD DAILY [facility] Last Admin: 07/12/17 10:39 Dose: 1 patch Vancomycin HCl (Vancocin (Oral Or Rectal Use)) 125 mg PO QID [facility] Last Admin: 07/12/17 22:10 Dose: 125 mg - Labs Labs: 07/12/17 06:03 07/12/17 06:03 - Constitutional Appears: Well - Respiratory Exam Respiratory Exam: Clear to Ausculation Bilateral - Cardiovascular Exam Cardiovascular Exam: RRR - GI/Abdominal Exam GI & Abdominal Exam: Soft, Normal Bowel Sounds. absent: Tenderness, Rebound - Back Exam Back Exam: absent: CVA tenderness (L) - Neurological Exam Neurological Exam: Alert, Oriented x3 - Psychiatric Exam Psychiatric exam: Anxious Assessment and Plan (1) Acute diverticulitis Status: Resolved (2) Abdominal pain Status: Acute (3) C. difficile colitis Assessment & Plan: Improving. Cont p.o vanco- recurrent c diff protocol On Bacid Status: Chronic (4) COPD (chronic obstructive pulmonary disease) Status: Chronic
[2017-07-13] MEDS: Vancomycin 125 MG/5 ML SOLN (ORAL/RECTAL) PO SCH ×2 (09:07→13:15)
[2017-07-13] MEDS: Lactobacillus Acidophilus 500 MU Cap PO SCH (09:07)
[2017-07-13] MEDS: Enoxaparin 40 mg Syringe SC SCH (09:08)
[2017-07-13 13:10] VITALS: BP 122/72; PULSE 82; RESP 15; TEMP 98.8
--- NOTE | 2017-07-13 14:48 | CP.PCM.DIS ---
Provider - Provider Date of Admission: 07/07/17 15:17 Attending physician: Clinton Urrutia MD Time Spent in preparation of Discharge (in minutes): 30 Diagnosis - Discharge Diagnosis (1) Acute diverticulitis Status: Resolved Priority: Medium (2) Abdominal pain Status: Acute (3) Anxiety and depression Status: Chronic Priority: Low (4) C. difficile colitis Status: Chronic Priority: High Hospital Course - Lab Results Lab Results: Micro Results 07/07/17 13:30 Blood Blood Culture - Final NO GROWTH AFTER 5 DAYS 07/07/17 13:30 Blood Gram Stain - Final TEST NOT PERFORMED 07/07/17 13:57 Blood Blood Culture - Final NO GROWTH AFTER 5 DAYS 07/07/17 13:57 Blood Gram Stain - Final TEST NOT PERFORMED 07/08/17 14:30 Stool Stool Culture - Final NO SALMONELLA, SHIGELLA OR CAMPYLOBACTER ISOLATED. 07/08/17 21:35 Urine,Clean Catch Urine Culture - Final No Growth (<1,000 CFU/ML) 07/08/17 21:51 Naris MRSA Culture (Admit) - Final MRSA NOT DETECTED Most Recent Lab Values WBC 7.1 K/uL (4.8-10.8) 07/12/17 06:03 RBC 4.54 Mil/uL (3.80-5.20) 07/12/17 06:03 Hgb 14.0 g/dL (11.0-16.0) 07/12/17 06:03 Hct 41.0 % (34.0-47.0) 07/12/17 06:03 MCV 90.5 fL (81.0-99.0) 07/12/17 06:03 MCH 30.8 pg (27.0-31.0) 07/12/17 06:03 MCHC 34.1 g/dL (33.0-37.0) 07/12/17 06:03 RDW 14.2 % (11.5-14.5) 07/12/17 06:03 Plt Count 349 K/uL (130-400) 07/12/17 06:03 MPV 10.3 fL (7.2-11.7) 07/12/17 06:03 Neut % (Auto) 71.4 % (50.0-75.0) 07/12/17 06:03 Lymph % (Auto) 13.8 % (20.0-40.0) L 07/12/17 06:03 [place] % (Auto) 8.7 % (0.0-10.0) 07/12/17 06:03 Eos % (Auto) 5.3 % (0.0-4.0) H 07/12/17 06:03 Baso % (Auto) 0.8 % (0.0-2.0) 07/12/17 06:03 Neut # 5.1 K/uL (1.8-7.0) 07/12/17 06:03 Lymph # 1.0 K/uL (1.0-4.3) 07/12/17 06:03 [place] # 0.6 K/uL (0.0-0.8) 07/12/17 06:03 Eos # 0.4 K/uL (0.0-0.7) 07/12/17 06:03 Baso # 0.1 K/uL (0.0-0.2) 07/12/17 06:03 Neutrophils % (Manual) 84 % (50-75) H 07/09/17 06:18 Lymphocytes % (Manual) 11 % (20-40) L 07/09/17 06:18 Monocytes % (Manual) 5 % (0-10) 07/09/17 06:18 Eosinophils % (Manual) 4 % (0-4) 07/08/17 17:51 Platelet Estimate Normal (NORMAL) 07/09/17 06:18 RBC Morphology Normal 07/09/17 06:18 Sodium 137 mmol/L (132-148) 07/12/17 06:03 Potassium 4.4 mmol/L (3.6-5.2) 07/12/17 06:03 Chloride 102 mmol/L (98-107) 07/12/17 06:03 Carbon Dioxide 26 mmol/L (22-30) 07/12/17 06:03 Anion Gap 14 (10-20) 07/12/17 06:03 BUN 11 mg/dL (7-17) 07/12/17 06:03 Creatinine 0.9 mg/dL (0.7-1.2) 07/12/17 06:03 Est GFR ( Amer) > 60 07/12/17 06:03 Est GFR (Non-Af Amer) > 60 07/12/17 06:03 POC Glucose (mg/dL) 183 mg/dL (65-110) H 07/08/17 15:50 Random Glucose 101 mg/dL (65-105) 07/12/17 06:03 Lactic Acid 1.9 mmol/L (0.7-2.1) 07/09/17 18:25 Calcium 8.8 mg/dl (8.6-10.4) 07/12/17 06:03 Phosphorus 3.3 mg/dL (2.5-4.5) 07/09/17 06:18 Magnesium 2.1 mg/dL (1.6-2.3) 07/09/17 06:18 Total Bilirubin 0.5 mg/dL (0.2-1.3) 07/09/17 06:18 AST 16 U/L (14-36) 07/09/17 06:18 ALT 32 U/L (9-52) 07/09/17 06:18 Alkaline Phosphatase 55 U/L (38-126) 07/09/17 06:18 Total Protein 5.8 g/dL (6.3-8.3) L 07/09/17 06:18 Albumin 3.2 g/dL (3.5-5.0) L 07/09/17 06:18 Globulin 2.7 gm/dL (2.2-3.9) 07/09/17 06:18 Albumin/Globulin Ratio 1.2 (1.0-2.1) 07/09/17 06:18 Amylase 72 U/L (30-110) 07/08/17 07:49 Lipase 30 U/L (23-300) 07/08/17 07:49 Carcinoembryonic Ag 2.5 ng/mL (0-3.0) 07/07/17 20:13 Thyroxine (T4) 10.7 ug/dL (5.5-11.0) 07/10/17 06:32 Total T3 1.95 nmol/L (1.49-2.60) 07/10/17 06:32 TSH 3rd Generation 1.64 mIU/L (0.46-4.68) 07/10/17 06:32 Cortisol AM Sample 9.6 ug/dL (4.46-22.7) 07/10/17 06:32 ACTH 27 pg/mL (6-50) 07/10/17 06:30 Urine Color Yellow (YELLOW) 07/07/17 14:09 Urine Clarity Clear (Clear) 07/07/17 14:09 Urine pH 6.0 (5.0-8.0) 07/07/17 14:09 Ur Specific [place] 1.019 (1.003-1.030) 07/07/17 14:09 Urine Protein Negative mg/dL (NEGATIVE) 07/07/17 14:09 Urine Glucose (UA) Normal mg/dL (Normal) 07/07/17 14:09 Urine Ketones Negative mg/dL (NEGATIVE) 07/07/17 14:09 Urine Blood Negative (NEGATIVE) 07/07/17 14:09 Urine Nitrate Negative (NEGATIVE) 07/07/17 14:09 Urine Bilirubin Negative (NEGATIVE) 07/07/17 14:09 Urine Urobilinogen Normal mg/dL (0.2-1.0) 07/07/17 14:09 Ur Leukocyte Esterase Neg Josie/uL (Negative) 07/07/17 14:09 Urine WBC (Auto) 1 /hpf (0-5) 07/07/17 14:09 Urine RBC (Auto) 1 /hpf (0-3) 07/07/17 14:09 Ur Squamous Epith Cells 1 /hpf (0-5) 07/07/17 14:09 Stool Leukocytes, Qual Positive (NEGATIVE) H 07/08/17 13:14 C. difficile Tox B Gene Detected (Not Detected) H 07/08/17 09:44 C. difficile Ag & Toxin Negative (NEGATIVE) 07/08/17 20:09 - Hospital Course Hospital Course: Patient improving well on present rx, vanco po and flagyl iv. After a conversation with ID marine consultant will continue the present therapy for better coverage of C.Diff and for diverticulitis. Patient presented with failure to OP rx with recurrence of colitis and diverticulitis. It is clinically necessary to continue on the present dual rx, in consideration of the significant positive clinical response, for the best interest of the patient care and prevent possible relapse of her condition. On presentation patient was clinically septic with hemodynamically instability. ID consult appreciated. Will continue care on SNF level to complete 10 days of iv and oral rx. Discharge Exam - Head Exam Head Exam: NORMAL INSPECTION Additional comments: Patient sen in SNF - Eye Exam Eye Exam: Normal appearance - Neck Exam Neck exam: Full Rom - Respiratory Exam Respiratory Exam: Clear to PA & Lateral - Cardiovascular Exam Cardiovascular Exam: REGULAR RHYTHM, +S1, +S2 - GI/Abdominal Exam GI & Abdominal Exam: Normal Bowel Sounds - Neurological Exam Neurological exam: Alert, CN II-XII Intact, Oriented x3 - Psychiatric Exam Psychiatric exam: Normal Affect - Skin Skin Exam: Normal Color Discharge Plan - Discharge Medications Prescriptions: metroNIDAZOLE 500mg/100ml NS [Flagyl 500MG/100ML NS] 500 mg IVPB Q8 10 Days #21 bag - Follow Up Plan Condition: STABLE Disposition: REHAB FACILITY/REHAB UNIT Instructions: Acute Abdominal Pain (DC), Acute Abdominal Pain (GEN) Referrals: Clinton Urrutia MD [Staff Provider] -
--- NOTE | 2017-07-13 20:22 | PN ---
DATE: ENDOCRINOLOGY FOLLOWUP NOTE: LOCATION: In ICU room 4. SUBJECTIVE: This is a 67-year-old female presenting here with acute diverticulitis and associated constitutional symptoms with generalized body weakness and suboptimal energy level and initial possibility of adrenal insufficiency was brought up at this time. Subsequent and serial cortisol levels have improved and remained normal with the latest cortisol level of 9.6 mcg/dL with an ACTH of 27 milliunits per mL. Her latest chemistry shows a BUN of 11, sodium of 137, potassium of 4.4, chloride of 102, CO2 of 26, glucose of 101, creatinine of 0.9. Her serum cortisol level as mentioned is 9.69 mcg/dL and of 27 as mentioned. She remains clinically and biochemically euthyroid and euadrenal at this time. So, we will obtain serial chemistries and supplement accordingly as need. There is no indication at this time for any kind of thyroid or cortisol pharmacotherapy. We will follow with you. Radha Whitmore MD
--- NOTE | 2017-07-15 10:59 | PQF SEPSIS ---
This form is a permanent part of the medical record* To Clinton Mcnamara MD Patient presented to the ER with LLQ recurrent abdominal pain associated with fever of 102 and chills. Diagnosed with Diverticulitis. Patient with elevated WBC, dehydration. Please clarify if Sepsis was ruled in Ruled out. Thank you, Clarification of your documentation is requested to better reflect the severity of illness and intensity of treatment of your patient. Indicators present [x] Temp < 96.8 or > 100.4 Temp 102 [X] WBC count > 12,000/mm3 or <000/mm3 or 10% immature neutrophils 26.6H [] Heart Rate > 90 [] Respiratory Rate > 20 [X] Fever or hypothermia [X] Chills [] Positive blood cultures [X] Hypotension [] Metabolic acidosis (Elevated lactate level, anion gap or reduced blood pH) [] Acute confusion /Altered Mental Status [X] Shock Progress Note 07/08 [] Other: [] Location in the medical record that reflects the above clinical findings: [] Progress Notes 07/08 septic shock Treatment Provided: [] PHYSICIAN'S RESPONSE Based on your medical judgment of the clinical indicators outlined above, are you treating this patient for a known or suspected: [x] Sepsis / Septicemia clinically septic Please specify organism if known [] [] SIRS (Systemic Inflammatory Response Syndrome) [] Severe Sepsis (Sepsis with Associated Organ Dysfunction) [] Fever of Unknown Origin [] Other, please indicate: [] [] If Unable to Determine, please check the box, sign and date. Present On Admission (POA) Indicator: [] Present at the time of admission [] Not present at the time of admission [] Clinically Undetermined In responding to this query, please exercise your independent professional judgment. The fact that a question is asked does not imply that any particular answer is desired or expected. Thank you for your clarification on this documentation. If you have any questions please call:[ ] * Thank you, [Leila Bedolla,VALENTIN ] leveling machine operator ELEANOR
== END 2017-07-13 20:08 | disposition home or self-care (01) | DRG 871 ==
LOC: C.ER 12:42 → C.9E 15:17 → C.3T 07-08 14:48 → C.9I 07-08 17:48
PROVIDERS: ADMIT Internal Medicine; ATTEND Internal Medicine
DX: A41.9 Sepsis, unspecified organism (principal); R65.21 Severe sepsis with septic shock; A04.72 Enterocolitis due to Clostridium difficile, not specified as recurrent; K57.32 Diverticulitis of large intestine without perforation or abscess without bleeding; E27.40 Unspecified adrenocortical insufficiency; E11.628 Type 2 diabetes mellitus with other skin complications; E87.5 Hyperkalemia; L03.90 Cellulitis, unspecified; J44.9 Chronic obstructive pulmonary disease, unspecified; E78.00 Pure hypercholesterolemia, unspecified; F32.9 Major depressive disorder, single episode, unspecified; F41.9 Anxiety disorder, unspecified; F17.210 Nicotine dependence, cigarettes, uncomplicated; R63.4 Abnormal weight loss; E86.0 Dehydration

== ENCOUNTER 2017-10-18 06:41 | Day surgery (SDC) | payer MEDICARE ==
[2017-10-13 17:50] VITALS: BMI 23.8
[2017-10-18 07:27] LABS: BASO # 0.1 K/uL (0.0-0.2); EOS # 0.2 K/uL (0.0-0.7); EOS % 3.3 % (0.0-4.0); HEMOGLOBIN 14.8 g/dL (11.0-16.0); LYMPH # 1.9 K/uL (1.0-4.3); MEAN CORPUSCULAR HEMOGLOBIN 31.1 pg (27.0-31.0); MEAN CORPUSCULAR HGB CONC 34.5 g/dL (33.0-37.0); MEAN PLATELET VOLUME 10.1 fL (7.2-11.7); MONO # 0.5 K/uL (0.0-0.8); MONO % 8.2 % (0.0-10.0); NEUT # 3.8 K/uL (1.8-7.0); NEUT % 58.5 % (50.0-75.0); NRBC % 0.1 % (0.0-2.0); RBC 4.75 Mil/uL (3.80-5.20); RED CELL DISTRIBUTION WIDTH 13.9 % (11.5-14.5); WHITE BLOOD COUNT 6.4 K/uL (4.8-10.8)
[2017-10-18 07:31] LABS: INR 1.1; PROTHROMBIN TIME 11.8 SECONDS (9.7-12.2)
[2017-10-18 07:43] LABS: ALB/GLOB RATIO 1.1 (1.0-2.1); ALBUMIN 4.4 g/dL (3.5-5.0); ALT/SGPT 23 U/L (9-52); AST/SGOT 28 U/L (14-36); BLOOD UREA NITROGEN 14 mg/dL (7-17); CALCIUM 9.4 mg/dl (8.6-10.4); GFR AFRICAN-AMERICAN > 60; GFR NON-AFRICAN AMERICAN > 60
[2017-10-18] MEDS ORDERED: Aminophylline 25 mg/ml Inj ONE (10:38)
--- NOTE | 2017-10-20 12:39 | CARD ---
APPROVED REPORT EKG Measurement Heart [id number] <Conclusion> Normal sinus rhythm Normal ECG
--- NOTE | 2017-11-03 17:38 | CARD ---
APPROVED REPORT EXAM: Two-dimensional and M-mode echocardiogram with Doppler and color Doppler. Other Information Quality : GoodRhythm : INDICATION Dizziness and Vertigo PRE-SYNCOPE, LEFT SHOULDER PAIN 2D DIMENSIONS IVSd0.7 (0.7-1.1cm)LVDd3.8 (3.9-5.9cm) PWd0.7 (0.7-1.1cm)LVDs1.8 (2.5-4.0cm) FS (%) 51.4 %LVEF (%)83.2 (>50%) M-Mode DIMENSIONS RVDd1.49 (2.1-3.2cm)Left Atrium (MM)2.52 (2.5-4.0cm) IVSd0.79 (0.7-1.1cm)Aortic Root2.55 (2.2-3.7cm) LVDd3.92 (4.0-5.6cm)Aortic Cusp Exc.1.74 (1.5-2.0cm) PWd0.70 (0.7-1.1cm)FS (%) 58 % LVDs1.66 (2.0-3.8cm)LVEF (%)88 (>50%) Mitral Valve MV E Lvnzyxge00.9cm/sMV A Lacutunb72.4cm/sE/A ratio0.8 TDI E/Lateral E'0.0E/Medial E'0.0 Tricuspid Valve TR Peak [id number]/sTR Peak [id number] LEFT VENTRICLE The left ventricle is normal size. There is borderline concentric left ventricular hypertrophy. The left ventricular function is normal. The left ventricular ejection fraction is within the normal range. The Ejection Fraction is 60-65%. There is normal LV segmental wall motion. Transmitral Doppler flow pattern is Grade I-abnormal relaxation pattern. No left ventricle thrombus noted on this study. There is no ventricular septal defect visualized. There is no left ventricular aneurysm. There is no mass noted in the left ventricle. RIGHT VENTRICLE The right ventricle is normal size. There is normal right ventricular wall thickness. The right ventricular systolic function is normal. ATRIA The left atrium is borderline dilated. The right atrium size is normal. The interatrial septum is intact with no evidence for an atrial septal defect. AORTIC VALVE The aortic valve is normal in structure. No aortic regurgitation is present. There is no aortic valvular stenosis. There is no aortic valvular vegetation. MITRAL VALVE The mitral valve is normal in structure. There is no evidence of mitral valve prolapse. There is no mitral valve stenosis. Mitral regurgitation is trace. TRICUSPID VALVE The tricuspid valve is normal in structure. There is trace to mild tricuspid regurgitation. Right ventricular systolic pressure is estimated at 30-40 mmHg. There is no tricuspid valve prolapse or vegetation. There is no tricuspid valve stenosis. PULMONIC VALVE The pulmonary valve is normal in structure. There is no pulmonic valvular regurgitation. There is no pulmonic valvular stenosis. GREAT VESSELS The aortic root is normal in size. The ascending aorta is normal in size. The pulmonary artery is normal. The IVC is normal in size and collapses >50% with inspiration. PERICARDIAL EFFUSION There is no pericardial effusion. There is no pleural effusion. <Conclusion> Transmitral Doppler flow pattern is Grade I-abnormal relaxation pattern. Mitral regurgitation is trace. There is trace to mild tricuspid regurgitation. There is trace to mild tricuspid regurgitation. Right ventricular systolic pressure is estimated at 30-40 mmHg.
--- NOTE | 2017-11-03 17:41 | CARD ---
APPROVED REPORT Protocol: PHARMACOLOGICAL STRESS Test Type: LEXISCAN Test Indications: LIST SCAN Medications: LIST SCAN Medical History: PAIN LEFT SHOULDER Target HR: 152 bpm Resting ECG: normal Resting Heart Rate: 79 bpm Resting Blood Pressure: 96/60mmHg submaximum (85%): 129 bpm TEST SUMMARY [id number]/60.0. INFUSIONDOSE 100:[id number]/60.0. [id number]/60.0. PROCEDURE Pharmacologic stress testing was performed using 0.4mg per 5ml of regadenoson given intravenously over 7-10 seconds. POST EXERCISE Reason for Termination: Protocol Completed Target HR: No Max HR: 65 bpm 68% of Maximum Predicted HR: 152 bpm Exercise duration: 00:30 min:sec, 0 Stage Exercise capacity: 1.0METs Max Blood Pressure: 128/60mmHg Blood Pressure response to exercise: N/A Heart Rate response to exercise: N/A Chest Pain: No, none Angina index: 0 Arrhythmia: No, none ST Change: No, none Deviation: 0 mm EXAM: Myocardial Perfusion STRESS/REST Imaging Protocol The imaging protocol used to acquire images was Stress Tc-99m/rest Tc-99m 1 day Rest Spect myocardial perfusion imaging was performed in supine position 45 minutes following the injection of 12.0 mCi of Tc-99 Myoview. Gated Stress Spect was performed 45 minutes after intravenous 33.0 mCi Tc-99 Myoview injection. The images were gated to evaluate regional wall motion and calculate ventricular ejection fraction.Images were reconstructed using backfilter projection method in short horizontal and verticle long axis. Spect slices were generated. RESTING DATA EDV40.69pkDS6.10L/min ESV6.00mlMyocardial Mass84.00g Av. Heart Rate62.00bpm EF85.00% STRESS DATA EDV41.24gfEH1.30L/min ESV6.00mlMyocardial Mass84.00g EF85.00% Regional WT score at stress:0.00 Regional WM score at stress:0.00 Summed WT score at stress:12.00 Av. Heart Rate66.00bpmSummed WM score at stress:0.00 Study quality was good. Left Ventricular size was Normal at Rest and Stress. Lung uptake was Normal. Left Ventricular ejection fraction is 85%. The rest and stress images show normal perfusion, normal contraction and thickening. LV Perf. Quant 17 Seg. SSS0.00 17 Seg. SRS0.00 17 Seg. SDS0.00 Stress Defect Extent (% LAD)0.00Rest Defect Extent (% LAD)0.00Rev. Defect Extent (% LAD)0.00 Stress Defect Extent (% LCX)0.00Rest Defect Extent (% LCX)0.00Rev. Defect Extent (% LCX)0.00 Stress Defect Extent (% RCA)0.00Rest Defect Extent (% RCA)0.00Rev. Defect Extent (% RCA)0.00 Stress Defect Extent (% KITTY)0.00Rest Defect Extent (% KITTY)0.00Rev. Defect Extent (% KITTY)0.00 Other Information Quality:Average Overall Exercise Capacity: n/a IMPRESSION Normal Myocardial Perfusion exercise stress study Stress Test Summary: Normal LV Perfusion Summary: Normal Left Ventricle LV Size/Shape: The left ventricle is normal size. LV Function:The left ventricle is normal in structure and function. Regional Wall Motion:No regional wall motion abnormalities noted. Metabolism/Perfusion There are no perfusion/metabolism defects. Conclusion 1. - Normal myocardial perfusion study with no evidence of ischemia 2. - Normal LVEF
--- NOTE | 2017-12-02 15:20 | CARDCATH ---
PROCEDURE DATE: 10/18/2017 INDICATION: The patient is a 67-year-old female referred to me for evaluation of symptoms of dizziness, lethargy, and near syncopal episode with multiple falls. PROCEDURE PERFORMED: Tilt-table testing. DESCRIPTION OF PROCEDURE: The patient was brought to the cardiac screedman/laborer holding area in the fasting state. After signing the informed consent, she was laid supine on the tilt table and noninvasive blood pressure cuff monitoring, ECG monitoring, and pulse oximetry monitoring were established. The patient was observed in the supine position for several minutes during which time heart rates were in the 54 to 60 with systolic blood pressure ranging from 99 to 112. She was then tilted to a 45-degree angle and observed for 15 minutes. Heart rate and rhythm were observed continuously and blood pressures were measured every 5 minutes. The patient was stable throughout the 20-minute tilt. Subsequently, she was then tilted to a 60-degree position with serial blood pressure, heart rate, and pulse oximetry monitoring and repeat blood pressure monitoring. She was subsequently positioned to a 90-degree without any incident of dizziness or discomfort. Her heart rate was maintained in the 60s with systolic blood pressure ranging between 110 to 120s. Subsequently after 30 minutes of observation, she was given 0.4 mg of sublingual nitroglycerin. She initially started becoming tachycardic and heart rate increased to 92 and her systolic blood pressure dropped to 87. The patient at this point started feeling dizzy and fatigued and extremely lethargic. The patient subsequently was moved back to supine position and her blood pressure normalized. The patient stated that her symptoms were similar to her prolonged episodes that were occurring prior to the near syncope for the last 3 months. The patient was stable when she left the cardiac screedman/laborer. IMPRESSION: Positive tilt-table test with reproduction with sublingual nitroglycerin producing near syncope in the setting of orthostatic hypotension during prolonged head upright tilt on nitroglycerin stimulation. Juan Daniel Conde MD
== END 2017-10-18 11:00 | disposition home or self-care (01) ==
LOC: C.CATHLAB 06:41
PROVIDERS: ATTEND Internal Medicine Interventional Cardiology
DX: I95.1 Orthostatic hypotension (principal); I34.0 Nonrheumatic mitral (valve) insufficiency
CPT/HCPCS: 36415; 78452; 80053; 85025; 85610; 85730; 93005; 93017; 93306; 93660; A9502; J2785